=== PATIENT | male | born 1945 | race American Indian/Alaskan Native ===

== ENCOUNTER 2016-09-07 16:53 | Inpatient (IN) | payer MEDICARE ==
[2016-09-07] MEDS ORDERED: NACL 0.9% 1000 ML 2,000 ML ONE (17:19)
[2016-09-07] MEDS ORDERED: CARDIZEM IV ONE (17:30)
[2016-09-07] MEDS ORDERED: NACL 0.9% 1000 ML 1,000 ML IV ONE (17:30)
[2016-09-07] MEDS ORDERED: BABY ASPIRIN PO ONE (17:32)
--- NOTE | 2016-09-07 17:32 | Emergency Department Report ---
HPI - General Chief Complaint: Chest Pain Time Seen by Provider: 09/07/16 17:29 - HPI HPI: The patient is a 70-year-old male who presents for evaluation of generalized weakness, dyspnea, and lightheadedness. The patient reports 2 weeks of progressive generalized weakness, moderate in severity, dyspnea, severe, exacerbated with physical activity and exertion, improved with rest, and dizziness, exacerbated with position changes. He admits to some transient chest pain yesterday, but none today. The patient denies fever, headache, syncope, hemoptysis, unilateral leg swelling, recent immobilization, history of DVT or PE, recent cancer. ED Past Medical Hx - Past Medical History Previous Medical History?: Yes Hx Diabetes: Yes Additional medical history: high cholestrol - Surgical History Past Surgical History?: No - Social History Smoking Status: Never Smoker Substance Use Type: None - Medications Home Medications: Home Medications Medication Instructions Recorded Confirmed Last Taken Type Metformin HCl [Glucophage] 1,000 mg PO BID 09/07/16 09/07/16 Unknown History Simvastatin [Zocor TAB] 40 mg PO QHS 09/07/16 09/07/16 Unknown History Tamsulosin [Flomax] 0.4 mg PO QDAY 09/07/16 09/07/16 Unknown History glipiZIDE [Glucotrol] 5 mg PO ADAM 09/07/16 09/07/16 Unknown History ED Review of Systems ROS: Stated complaint: SHOULDER PAIN/EMELIA Other details as noted in HPI Constitutional: denies: fever; reports lightheadedness and dizziness ENT: denies: throat or neck pain Respiratory: reports cough, shortness of breath Cardiovascular: reports chest pain Endocrine: denies unexplained weight loss or gain Gastrointestinal: denies: abdominal pain, nausea Genitourinary: denies: dysuria Musculoskeletal: denies: leg swelling Skin: denies: rash Neurological: denies: headache Hematological/Lymphatic: denies: easy bleeding or easy bruising Psych: denies sadness or hopelessness Physical Exam - Physical Exam Vital Signs: Vital Signs 09/07/16 17:16 Temperature 98.7 F Pulse Rate 80 Respiratory 24 Rate Blood Pressure 121/85 O2 Sat by Pulse 96 Oximetry Physical Exam: General: well-nourished, well-developed, no acute distress Head: Normocephalic, atraumatic Eyes: normal sclera ENT: Mucous membranes are pale and dry Neck: No neck stiffness, no cervical adenopathy Respiratory: patient tachypenic, Breath sounds equal bilaterally, no wheezing, rales, or rhonchi Cardio: tachycardic, S1 and S2 present, no murmurs, rubs, gallops, capillary refill is delayed Abdomen: Normoactive bowel sounds, soft abdomen, no rigidity, no guarding or rebound tenderness Musc: No pitting edema Skin: patient diaphoretic Neuro: no facial drooping, normal speech Psych: Normal affect ED Course Vital Signs 09/07/16 17:16 Temperature 98.7 F Pulse Rate 80 Respiratory 24 Rate Blood Pressure 121/85 O2 Sat by Pulse 96 Oximetry ED Medical Decision Making - Lab Data Result diagrams: 09/07/16 18:06 09/07/16 17:50 - Medical Decision Making The patient was seen and examined by myself. The patient is placed on a charging car operator and continuous pulse ox. On initial evaluation, the patient was found to be in no distress. EKG exhibits regularly irregular narrow QRS complex tachycardia, consistent with atrial fibrillation with RVR. EKG was negative for findings suggestive of acute cardiac infarct. The patient is given 2 doses of adenosine without resolution of arrhythmia. The patient is given a Cardizem bolus and started on a Cardizem infusion. Multiple bedside assessments are performed to evaluate patient responsiveness to titration of Cardizem infusion. Labs and imaging are obtained. Chest x-ray is negative for pneumothorax, focal consolidation, pulmonary vascular congestion, pleural effusion, or other obvious acute cardiopulmonary disease process. Lab results revealed leukocytosis, WBC 13, elevated lactic acid of 2.3, and elevated BNP of 540, otherwise labs were unrevealing including negative troponin, electrolytes, renal function. As the patient has diabetes, the patient has a chads score of 2 and will be anticoagulated. A heparin bolus and infusion is ordered for the patient. On reassessment the patient is found to have decrease in heart rate to 100. The on-call hospitalist service was contacted. They agreed to admit the patient for further treatment and close monitoring. The ED admit order was placed. The patient was admitted in guarded condition. Critical Care Time: Yes (35) Critical care time in (mins) excluding proc time.: 35 Critical care attestation.: Due to the critical nature of this patients presentation, which necessitated multiple bedside assessments, manipulation and supportive measures to prevent further life threatening deterioration, I would like to bill for a total of 35 minutes of critical care time. This was exclusive of any separately billable procedures. Critical Care Time: 35 ED Disposition Clinical Impression: Atrial flutter with rapid ventricular response, Dizziness, Acute upper respiratory infection Disposition: OP ADMITTED IP TO THIS HOSP Is pt being admited?: Yes Does the pt Need Aspirin: Yes Condition: Critical Time of Disposition: 17:32
[2016-09-07] MEDS: CARDIZEM/D5W 100MG/100ML 100 MG/100 ML BAG IV SCH (18:00)
--- NOTE | 2016-09-07 18:04 | Emergency Department Report ---
HPI - General Chief Complaint: Chest Pain Time Seen by Provider: 09/07/16 17:29 ED Past Medical Hx - Past Medical History Previous Medical History?: Yes Hx Diabetes: Yes Additional medical history: high cholestrol - Surgical History Past Surgical History?: No - Social History Smoking Status: Never Smoker Substance Use Type: None - Medications Home Medications: Home Medications Medication Instructions Recorded Confirmed Last Taken Type Metformin HCl [Glucophage] 1,000 mg PO BID 09/07/16 09/07/16 Unknown History Simvastatin [Zocor TAB] 40 mg PO QHS 09/07/16 09/07/16 Unknown History Tamsulosin [Flomax] 0.4 mg PO QDAY 09/07/16 09/07/16 Unknown History glipiZIDE [Glucotrol] 5 mg PO ADAM 09/07/16 09/07/16 Unknown History ED Review of Systems ROS: Stated complaint: SHOULDER PAIN/EMELIA Other details as noted in HPI Physical Exam - Physical Exam Vital Signs: Vital Signs 09/07/16 09/07/16 17:16 17:32 Temperature 98.7 F Pulse Rate 80 157 H Respiratory 24 18 Rate Blood Pressure 121/85 Blood Pressure 142/100 [left] O2 Sat by Pulse 96 98 Oximetry ED Course Vital Signs 09/07/16 09/07/16 17:16 17:32 Temperature 98.7 F Pulse Rate 80 157 H Respiratory 24 18 Rate Blood Pressure 121/85 Blood Pressure 142/100 [left] O2 Sat by Pulse 96 98 Oximetry Critical Care Time: Yes Critical care time in (mins) excluding proc time.: 35 (35) Critical care attestation.: Due to the critical nature of this patients presentation, which necessitated multiple bedside assessments, manipulation and supportive measures to prevent further life threatening deterioration, I would like to bill for a total of 35 minutes of critical care time. This was exclusive of any separately billable procedures. Critical Care Time: 35 ED Disposition Clinical Impression: Atrial flutter with rapid ventricular response Disposition: OP ADMITTED IP TO THIS HOSP Is pt being admited?: Yes Does the pt Need Aspirin: Yes Condition: Critical Time of Disposition: 17:01
--- NOTE | 2016-09-07 18:16 | Admit Criteria Form ---
Admission Criteria Documentation: CARDIOLOGY GRG Clinical Indications for Admission to Inpatient Care ( Place 'X' for any and all applicable criteria): Hospital admission is needed for appropriate care of the patient because of ANY ONE of the following (1): [ ] I. Hemodynamic instability as indicated by ALL of the following (1)(2)(3) (4)(5) [ ]a) Vital signs or other findings not as expected for chronic patient condition or baseline [ ]b) Instability indicated by ANY ONE of the following: [ ]i) Hypotension [ ]ii) Symptomatic Tachycardia unresponsive to treatment ( e.g., analgesia, fluids, sedation as indicated) [ ]iii) Inadequate perfusion indicated by ANY ONE of the following: [ ] 1) Lactic acidosis (> 2 mmol/L) [ ] 2) New abnormal capillary refill (> 3 seconds) [ ] 3) Reduced urine output [ ] 4) New altered mental status [ ]iv) Orthostatic vital sign changes unresponsive to treatment (e.g., fluids) [ ]v) IV inotropic or vasopressor medication required to maintain adequate blood pressure or perfusion [ ] II. Severe heart failure as indicated by ANY ONE of the following(17)(18) [ ]a) Respiratory distress [ ]b) Hypotension [ ]c) Anasarca (refractory to outpatient therapy) [ ]d) Cardiac arrhythmias of immediate concern [ ]e) Myocardial ischemia [ ] III. Cardiac arrhythmias or findings of immediate concern indicated by ANY ONE of the following (19)(20): [ ] a) Heart rhythms that are inherently dangerous or unstable indicated by ANY ONE of the following (21)(22)(23): [ ] i) Resuscitated ventricular fibrillation or cardiac arrest [ ] ii) Ventricular escape rhythm [ ] iii) Sustained ventricular tachycardia (30 seconds or more of ventricular rhythm at greater than 100 beats per minute) [ ] iv) Nonsustained ventricular tachycardia and ANY ONE of the following: [ ] 1) Suspected cardiac ischemia as cause or consequence of ventricular tachycardia [ ] 2) In setting of acute myocarditis [ ] b) Unstable cardiac conduction defects indicated by ANY ONE of the following(23)(24)(25) [ ] i) Type II second-degree atrioventricular block [ ]ii) Third-degree atrioventricular block [ ]iii) New-onset left bundle branch block with suspected myocardial ischemia [ ]c) Any heart rhythm and ANY ONE of the following (21)(22)(26)(27) (28) [ ] i) Continuous long-term ECG monitoring needed (e.g., initiation of drug requiring monitoring for more than 24 hours) [ ] ii) Patient has automatic implanted cardioverter defibrillator that is repeatedly firing, malfunctioning, or in need of immediate adjustment of settings beyond the scope of ambulatory or observation care [ ]d) Heart rhythms of concern due to ANY ONE of the following: [ ] i) Hypotension [ ] ii) Respiratory distress [ ] iii) Association with other significant symptoms (e.g., bradycardia with syncope or ongoing dizziness, supraventricular tachycardia with chest pain (14)(15)(17) [ ] IV. Monitoring for cardiac contusion beyond the scope of observation care needed [A](30)(31)(32) [ ] V. Surgical or device complication (e.g., valve replacement complication , pacemaker dysfunction) (35)(41)(44)(45)(46) [ ] . Inpatient palliative care needed. [B](49) Also use Inpatient Palliative Care Criteria [ ] VII. Nonbacterial thrombotic (marantic) endocarditis (36)(43)(47)(48) [X ] VIII. Cardiology condition, symptom, or finding for which emergency and observation care has failed or are not considered appropriate. [ ] IX. Acute valvular disease requiring inpatient as indicated by ANY ONE of the following (41) [ ]a) Acute valvular regurgitation (42) [ ]b) Noninfectious valvulitis (43) [ ]c) Obstructive valve thrombosis [ ]d) Paravalvular leak [ ]e) Other significant valvular disorder remaining after emergency or observation level of care (as appropriate) [ ]X. Pericardial disease requiring inpatient treatment as indicated by ANY ONE of the following (33)(34)(35)(36)(37) [ ]a) Suspected tamponade (38)(39)(40) [ ]b) Hemopericardium [ ]c) Other significant pericardial disorder remaining after emergency or observation level of care (as appropriate) [ ] XI. Cardiac ischemia beyond scope of emergency and observation care. [ ] XII. Hypertension requiring inpatient treatment as indicated by ANY ONE of the following (6)(7)(8) [ ]a) SBP greater than 220 mm Hg or DBP greater than 120 mmHg despite treatment [ ]b) SBP greater than 140 mm Hg or DBP greater than 100 mm Hg with evidence of acute end organ damage as indicated by ANY ONE of the following [ ] i) Altered mental status [ ] ii) Acute renal failure as indicated by new onset of ANY ONE of the following (9)(10)(11)(12)(13) [ ]1) 3-fold rise in serum creatinine from baseline [ ]2) Serum creatinine greater than 4 mg/dL ( 354 micromoles/L) with acute rise greater than 0.5 mg/dL (44.2 micromoles/L) [ ]3) Reduction of more than 75% in estimated glomerular filtration rate from baseline [ ]4) Estimated glomerular filtration rate less than 35 mL/min/1.73m2 (0.59 mL/sec/1.73m2) in child up to 18 years of age [ ]5) Cessation of urine output indicated by ALL of the following [ ]A. Adequate volume status [ ]B. Inadequate urine output as indicated by ANY ONE of the following [ ]a. Urine output less than 0.3 mL/kg/hr for 24 hours [ ]b. Anuria (urine output less than 0.1 mL/kg/hr) for 12 hours [ ] iii) Aortic dissection [ ] iv) Myocardial Ischemia [ ] v) Left ventricular heart failure [ ]vi) Retinal Hemorrhage [ ]vii) Other significant finding [ ]c) Hypertension in child requiring inpatient treatment as indicated by ALL of the following(14)(15)(16) [ ] i) Outpatient treatment not effective, not available, or not appropriate [ ]ii) SBP or DBP greater than 95th percentile for age [ ]iii) Evidence of acute end organ damage as indicated by ANY ONE of the following [ ]1) Altered mental status [ ]2) Acute renal failure as indicated by new onset of ANY ONE of the following(9)(10)(11)(12)(13) [ ]A. 3-fold rise in serum creatinine from baseline [ ]B. Serum creatinine greater than 4 mg/dL (354 micromoles/L) with acute rise greater than 0.5 mg/dL (44.2 micromoles/L) [ ]C. Reduction of more than 75% in estimated glomerular filtration rate from baseline [ ]D. Estimated glomerular filtration rate less than 35 mL/min/1.73m2 (0.59 mL/sec/1.73m2) in child up to 18 years of age [ ]E. Cessation of urine output indicated by ALL of the following [ ]a. Adequate volume status [ ]b. Inadequate urine output as indicated by ANY ONE of the following [ ]i) Urine output less than 0.3 mL/kg/hr for 24 hours [ ]ii) Anuria ( urine output less than 0.1 mL/kg/hr) for 12 hours [ ]3) Severe headache [ ]4) Visual disturbance [ ]5) Retinal hemorrhage [ ]6) Other significant finding [ ]XIII. Complications of transplanted heart indicated by ANY ONE of the following(61): [ ]a) Acute graft rejection requiring inpatient management (eg, intravenous immunosuppression)(62)(63) [ ]b) Acute graft heart failure indicated by ANY ONE of the following(64): [ ]i) Hemodynamic instability [ ]ii) Cardiac arrhythmias of immediate concern [ ]iii) Pulmonary edema that is very severe (eg, mechanical ventilation needed, imminent or likely, need for 100% oxygen to keep oxygen saturation above 90%) [ ]iv) Pulmonary edema that is persistent as indicated by ALL of the following: [ ]1) New need for oxygen therapy to keep oxygen saturation above 90% (or increased FiO2 need from baseline) [ ]2) Has not improved sufficiently with emergency department or observation care IV diuretics or other heart failure treatments[E] [ ]v) Altered mental status that is severe or persistent [ ]vi) Increased creatinine (new on laboratory test) with reduction of more than 50% in estimated glomerular filtration rate from baseline [ ]vii) Progressively (ongoing) rising creatinine (known from past laboratory test) with reduction of more than 25% in estimated glomerular filtration rate from baseline [ ]viii) Acute renal failure [ ]ix) Acute peripheral ischemia (eg, examination shows pulseless, cool, mottled, or cyanotic extremity) [ ]x) Pulmonary artery catheter monitoring needed [ ]xi) Other sign or symptom of heart failure requiring inpatient treatment (ie, too severe or not responsive to outpatient and observation care treatment) [ ]c) Infection requiring inpatient management (eg, Hemodynamic instability, need for intravenous antimicrobial treatment)(66)(67)(68)(69)(70) [ ]d) Cardiac allograft vasculopathy requiring inpatient management ( eg evidence of cardiac ischemia)(71) [ ]e) Other complication of transplanted heart (eg, stroke, severe pulmonary hypertension, severe valvular dysfunction) requiring inpatient management(72) The original [facility] [employer] content created by [facility] has been revised. The portions of the content which have been revised are identified through the use of italic text or in bold, and [facility] has neither reviewed nor approved the modified material. All other unmodified content is copyright [facility] [employer]. Please see references footnoted in the original [facility] [employer] edition 2016 Admission Criteria Met: Yes
[2016-09-07 18:31] LABS: INR 1.2 (0.87-1.13)
[2016-09-07 18:32] LABS: Partial Thromboplastin Time 32.9 Sec. (24.2-36.6)
[2016-09-07 18:35] LABS: Basophils % (Auto) 0.8 % (0.0-1.8); Eosinophils % (Auto) 0.5 % (0.0-4.3); Mean Corpuscular HGB Conc 30 % (32-34); Mean Corpuscular Volume 71 fl (84-94); Platelet Count 329 K/mm3 (140-440); Red Blood Count 4.94 M/mm3 (3.65-5.03); Red Cell Distribution Width 16.4 % (13.2-15.2)
[2016-09-07 18:38] LABS: Hemoglobin 10.6 gm/dl (11.8-15.2); Mean Corpuscular Hemoglobin 22 pg (28-32)
[2016-09-07 18:40] LABS: Alanine Aminotransferase 23 units/L (7-56); Albumin 3.3 g/dL (3.9-5); Albumin/Globulin Ratio 0.7 %; Alkaline Phosphatase 94 units/L (35-129); Anion Gap 23 mmol/L; BUN/Creatinine Ratio 7.77; Bilirubin,Total 0.5 mg/dL (0.1-1.2); Blood Urea Nitrogen 7 mg/dL (9-20); Calcium 9.8 mg/dL (8.4-10.2); Carbon Dioxide 25 mmol/L (22-30); Chloride 97.3 mmol/L (98-107); Glucose 114 mg/dL (75-100); Potassium 3.9 mmol/L (3.6-5.0); Sodium 141 mmol/L (137-145); Total Protein 8.1 g/dL (6.3-8.2)
[2016-09-07] MEDS ORDERED: TYLENOL PO PRN (20:46)
[2016-09-07] MEDS ORDERED: ZOFRAN IV PRN (20:46)
[2016-09-07] MEDS ORDERED: DULCOLAX PR PRN (20:46)
[2016-09-07] MEDS ORDERED: DILAUDID IV PRN (20:46)
[2016-09-07] MEDS ORDERED: MILK OF MAGNESIA PO PRN (20:46)
[2016-09-07] MEDS ORDERED: NOVOLOG SUB-Q ONE (20:55)
[2016-09-07] MEDS ORDERED: D5/0.45NS 1,000 ML IV SCH (21:00)
--- NOTE | 2016-09-07 21:03 | History and Physical Report ---
History of Present Illness Date of examination: 09/07/16 Date of admission: 09/07/16 Chief complaint: Chest pain History of present illness: The patient is a 70-year-old male who presents for evaluation of generalized weakness, dyspnea, and lightheadedness. The patient reports 2 weeks of progressive generalized weakness, moderate in severity, dyspnea, severe, exacerbated with physical activity and exertion, improved with rest, and dizziness, exacerbated with position changes. He admits to some transient chest pain yesterday, but none today. The patient denies fever, headache, syncope, hemoptysis, unilateral leg swelling, recent immobilization, history of DVT or PE, recent cancer. Past History Past Medical History: diabetes, hypertension, hyperlipidemia, other (BPH) Past Surgical History: No surgical history Social history: lives with family. denies: smoking, alcohol abuse Family history: hypertension Medications and Allergies Allergies Allergy/AdvReac Type Severity Reaction Status Date / Time iodine Allergy Swelling Verified 09/09/16 12:04 Home Medications Medication Instructions Recorded Confirmed Last Taken Type Metformin HCl [Glucophage] 1,000 mg PO BID 09/07/16 09/07/16 Unknown History Simvastatin [Zocor TAB] 40 mg PO QHS 09/07/16 09/07/16 Unknown History Tamsulosin [Flomax] 0.4 mg PO QDAY 09/07/16 09/07/16 Unknown History glipiZIDE [Glucotrol] 5 mg PO ADAM 09/07/16 09/07/16 Unknown History Active Meds: Active Medications Acetaminophen (Tylenol) 650 mg PO Q4H PRN PRN Reason: Pain MILD(1-3)/Fever >100.5/CHO Bisacodyl (Dulcolax) 10 mg [place] QDAY PRN PRN Reason: Constipation unrelieved by MOM Glipizide (Glucotrol) 5 mg PO ADAM BETY Hydromorphone HCl (Dilaudid) 0.5 mg IV Q3H PRN PRN Reason: Pain , Severe (7-10) Diltiazem HCl (Cardizem/D5w 100mg/100ml) 100 mg in 100 mls @ 5 mls/hr IV TITR BETY; 5 MG/HR PRN Reason: Protocol Last Titration: 09/07/16 19:33 Dose: 10 mg/hr, 10 mls/hr Dextrose/Sodium Chloride (D5/0.45ns) 1,000 mls @ 75 mls/hr IV DIRECT BETY Insulin Aspart (Novolog) 0 units SUB-Q ONCE ONE PRN Reason: Protocol Stop: 09/07/16 20:56 Magnesium Hydroxide (Milk Of Magnesia) 30 ml PO Q4H PRN PRN Reason: Constipation Miscellaneous Medication (Metformin Hcl [Glucophage]) 1,000 mg PO BID [facility] Ondansetron HCl (Zofran) 4 mg IV Q3H PRN PRN Reason: N/V unrelieved by Reglan Oxycodone/Acetaminophen (Percocet 5/325) 1 tab PO Q6H PRN PRN Reason: Pain, Moderate (4-6) Simvastatin (Zocor) 40 mg PO QHS BETY Tamsulosin HCl (Flomax) 0.4 mg PO QDAY [facility] Review of Systems All systems: negative Constitutional: no weight loss, no weight gain Ears, nose, mouth and throat: no mouth pain, no dysphagia, no hoarseness, no sore throat Cardiovascular: chest pain, palpitations, no orthopnea, no lightheadedness, no shortness of breath Respiratory: no cough with sputum, no shortness of breath, no dyspnea on exertion, no congestion, no wheezing, no pain on inspiration Gastrointestinal: no nausea, no vomiting, no diarrhea, no constipation, no change in bowel habits Genitourinary Male: no dysuria, no hematuria, no flank pain, no discharge, no urinary frequency, no urinary hesitancy Musculoskeletal: no neck stiffness, no neck pain, no shooting arm pain Integumentary: no rash, no pruritis, no redness Neurological: no seizures, no syncope Psychiatric: no anxiety, no depression Endocrine: no cold intolerance, no heat intolerance, no polyphagia, no excessive thirst, no polydipsia, no polyuria Hematologic/Lymphatic: no easy bruising, no easy bleeding Allergic/Immunologic: no urticaria, no allergic rhinitis, no wheezing Exam - Physical Exam Narrative exam: WD WN male in slight distress - Constitutional Vitals: Temp Pulse Resp BP Pulse Ox 98.7 F 102 H 20 132/86 100 09/07/16 17:16 09/07/16 20:33 09/07/16 20:33 09/07/16 20:33 09/07/16 20:33 General appearance: Present: no acute distress, well-nourished - EENT Eyes: Present: PERRL ENT: hearing intact, clear oral mucosa - Neck Neck: Present: supple, normal ROM - Respiratory Respiratory effort: normal Respiratory: bilateral: CTA - Cardiovascular Rhythm: irregularly irregular Heart Sounds: Present: S1 & S2. Absent: rub, click - Extremities Extremities: pulses symmetrical, No edema Peripheral Pulses: within normal limits - Abdominal General gastrointestinal: Present: soft, non-tender, non-distended, normal bowel sounds Male genitourinary: Present: normal - Integumentary Integumentary: Present: clear, warm, dry - Musculoskeletal Musculoskeletal: gait normal, strength equal bilaterally - Psychiatric Psychiatric: appropriate mood/affect, intact judgment & insight - Neurologic Neurologic: CNII-XII intact, moves all extremities - Allied Health Allied health notes reviewed: nursing, case management Results - Labs CBC & Chem 7: 09/08/16 04:51 09/09/16 03:59 Labs: Laboratory Last Values WBC 13.0 K/mm3 (4.5-11.0) H 09/07/16 18:06 RBC 4.94 M/mm3 (3.65-5.03) 09/07/16 18:06 Hgb 10.6 gm/dl (11.8-15.2) L 09/07/16 18:06 Hct 35.0 % (35.5-45.6) L 09/07/16 18:06 MCV 71 fl (84-94) L 09/07/16 18:06 MCH 22 pg (28-32) L 09/07/16 18:06 MCHC 30 % (32-34) L 09/07/16 18:06 RDW 16.4 % (13.2-15.2) H 09/07/16 18:06 Plt Count 329 K/mm3 (140-440) 09/07/16 18:06 Lymph % (Auto) 11.9 % (13.4-35.0) L 09/07/16 18:06 [place] % (Auto) 14.0 % (0.0-7.3) H 09/07/16 18:06 Eos % (Auto) 0.5 % (0.0-4.3) 09/07/16 18:06 Baso % (Auto) 0.8 % (0.0-1.8) 09/07/16 18:06 Lymph # 1.5 K/mm3 (1.2-5.4) 09/07/16 18:06 [place] # 1.8 K/mm3 (0.0-0.8) H 09/07/16 18:06 Eos # 0.1 K/mm3 (0.0-0.4) 09/07/16 18:06 Baso # 0.1 K/mm3 (0.0-0.1) 09/07/16 18:06 Seg Neutrophils % 72.8 % (40.0-70.0) H 09/07/16 18:06 Seg Neutrophils # 9.5 K/mm3 (1.8-7.7) H 09/07/16 18:06 PT 15.1 Sec. (12.2-14.9) H 09/07/16 17:50 INR 1.20 (0.87-1.13) H 09/07/16 17:50 APTT 32.9 Sec. (24.2-36.6) 09/07/16 17:50 VBG pH 7.369 (7.320-7.420) 09/07/16 17:50 Sodium 141 mmol/L (137-145) 09/07/16 17:50 Potassium 3.9 mmol/L (3.6-5.0) 09/07/16 17:50 Chloride 97.3 mmol/L (98-107) L 09/07/16 17:50 Carbon Dioxide 25 mmol/L (22-30) 09/07/16 17:50 Anion Gap 23 mmol/L 09/07/16 17:50 BUN 7 mg/dL (9-20) L 09/07/16 17:50 Creatinine 0.9 mg/dL (0.8-1.5) 09/07/16 17:50 Estimated GFR > 60 ml/min 09/07/16 17:50 BUN/Creatinine Ratio 7.77 % 09/07/16 17:50 Glucose 114 mg/dL (75-100) H 09/07/16 17:50 POC Glucose 157 (70-105) H 09/07/16 16:55 Lactic Acid 2.3 mmol/L (0.7-2.0) H* 09/07/16 18:06 Calcium 9.8 mg/dL (8.4-10.2) 09/07/16 17:50 Total Bilirubin 0.5 mg/dL (0.1-1.2) 09/07/16 17:50 AST 18 units/L (5-40) 09/07/16 17:50 ALT 23 units/L (7-56) 09/07/16 17:50 Alkaline Phosphatase 94 units/L (35-129) 09/07/16 17:50 Total Creatine Kinase 34 units/L (55-170) L 09/07/16 18:06 Troponin T < 0.010 ng/mL (0.00-0.029) 09/07/16 17:50 NT-Pro-B Natriuret Pep 547.2 pg/mL (0-900) 09/07/16 17:50 Total Protein 8.1 g/dL (6.3-8.2) 09/07/16 17:50 Albumin 3.3 g/dL (3.9-5) L 09/07/16 17:50 Albumin/Globulin Ratio 0.7 % 09/07/16 17:50 TSH 0.982 mlU/mL (0.270-4.200) 09/07/16 18:06 Free T4 1.12 ng/dL (0.76-1.46) 09/07/16 17:50 Ketones mmol/L (-0.28) 09/07/16 18:06 - Imaging and Cardiology EKG: report reviewed (Afib with rvr) Assessment and Plan Advance Directives: Yes (Full code) VTE prophylaxis?: Chemical Plan of care discussed with patient/family: Yes - Patient Problems (1) Atrial flutter with rapid ventricular response Current Visit: Yes Status: Acute Plan to address problem: On Cardizem (2) HTN (hypertension) Current Visit: Yes Status: Chronic Qualifiers: Hypertension type: essential hypertension Qualified Code(s): I10 - Essential (primary) hypertension Plan to address problem: Cont Anyihypertensives (3) BPH (benign prostatic hyperplasia) Current Visit: Yes Status: Chronic Qualifiers: Prostatic enlargement morphology: non-nodular Lower urinary tract symptom presence: symptoms present Qualified Code(s): N40.1 - Benign prostatic hyperplasia with lower urinary tract symptoms Plan to address problem: On Tamsulosin 0.4 mg po qd (4) T2DM (type 2 diabetes mellitus) Current Visit: Yes Status: Chronic Qualifiers: Diabetes mellitus complication status: without complication Diabetes mellitus complication detail: D Diabetic retinopathy severity: D Proliferative retinopathy type: P Diabetes mellitus macular edema: D Diabetes mellitus ferry terminal agent insulin use: D Laterality: L Chronic kidney disease stage: C Plan to address problem: Coverage for now (5) HLD (hyperlipidemia) Current Visit: Yes Status: Chronic Qualifiers: Hyperlipidemia type: mixed hyperlipidemia Qualified Code(s): E78.2 - Mixed hyperlipidemia Plan to address problem: Cont statins (6) DVT prophylaxis Current Visit: Yes Status: Acute Plan to address problem: on lovenox 40 mg sq
[2016-09-07] MEDS ORDERED: NON-FORMULARY (Metformin Hcl [Glucophage] 1,000 MG) PO SCH (22:00)
[2016-09-07] MEDS ORDERED: ASPIRIN ONE (22:29)
[2016-09-07] MEDS: GLUCOPHAGE PO SCH (22:32)
[2016-09-07] MEDS: ZOCOR PO SCH (22:35)
[2016-09-07] MEDS ORDERED: HEPARIN 10,000 UNITS/10 ML IV ONE (23:07)
[2016-09-08] MEDS ORDERED: HEPARIN/ 0.45% NACL-25,000 UNIT/500 ML 25,000 UNIT/500 ML BAG ONE (02:12)
[2016-09-08] MEDS: CARDIZEM/D5W 100MG/100ML 100 MG/100 ML BAG IV SCH (02:25)
[2016-09-08 05:17] LABS: Basophils % (Auto) 0.7 % (0.0-1.8); Hematocrit 33.2 % (35.5-45.6); Hemoglobin 10.3 gm/dl (11.8-15.2); Mean Corpuscular HGB Conc 31 % (32-34); Mean Corpuscular Hemoglobin 22 pg (28-32); Mean Corpuscular Volume 70 fl (84-94); Platelet Count 291 K/mm3 (140-440); Red Blood Count 4.73 M/mm3 (3.65-5.03); Red Cell Distribution Width 15.8 % (13.2-15.2); White Blood Count 10.1 K/mm3 (4.5-11.0)
[2016-09-08 05:42] LABS: Alanine Aminotransferase 20 units/L (7-56); Albumin 2.9 g/dL (3.9-5); Albumin/Globulin Ratio 0.7 %; Alkaline Phosphatase 82 units/L (35-129); Anion Gap 16 mmol/L; BUN/Creatinine Ratio 7.77; Bilirubin,Total 0.4 mg/dL (0.1-1.2); Blood Urea Nitrogen 7 mg/dL (9-20); Calcium 9.1 mg/dL (8.4-10.2); Carbon Dioxide 29 mmol/L (22-30); Chloride 99.4 mmol/L (98-107); Glucose 133 mg/dL (75-100); Potassium 3.8 mmol/L (3.6-5.0); Sodium 141 mmol/L (137-145)
--- NOTE | 2016-09-08 07:27 | XRay Report ---
AP CHEST: HISTORY: chest pain No comparison. The left hemidiaphragm appears to be elevated with large areas of compressive atelectasis in the left lower lobe. There also appears to be partial atelectasis in the left upper lobe. It is unclear if this is an acute or chronic process. The right lung is clear. Borderline to mild cardiomegaly is suspected. IMPRESSION: Abnormal left lung. The left hemidiaphragm appears elevated with large areas of atelectasis throughout the left lung. There no studies for comparison at this facility. Consider further evaluation with CT chest with contrast.
--- NOTE | 2016-09-08 08:04 | Progress Note ---
Assessment and Plan Assessment and plan: --Atrial flutter with rapid ventricular rate. On Cardizem drip Rate is better controlled, we'll add oral Cardizem and DC Cardizem drip Anticoagulation with heparin drip Cardiology following, possible ablation if no response to medical management inpatient versus outpatient --Type 2 diabetes mellitus, on oral hypoglycemics Moderate control, Accu-Chek sliding scale coverage and ADA diet, and oral meds Hemoglobin A1c 6.6 --elevated d-dimer's in the setting of atypical chest pain CT angiogram of the chest to rule out PE, oxygen titrated to O2 sats to 90% and above --Elevated lactic acid, rule out sepsis No evidence of sepsis at this point, patient is afebrile, normal WBC Closely monitor --Left lung atelectasis, questionable pneumonia Add empiric antibiotics Levaquin Follow CT chest --Dyslipidemia; Continue current lipid-lowering medications --History of BPH, stable on Flomax --DVT prophylaxis, patient is already on heparin drip --CODE STATUS; full code Closely monitor the patient and adjust the management as needed Consult and recommendations noted and appreciated If patient's heart rate is less than 100 on oral Cardizem and stable Patient can be transferred out of ICU Critical care time 31 minutes History Interval history: Patient seen and evaluated in his room medical records reviewed No new events reported by the nursing staff Patient was admitted with A. fib with rapid ventricular rate on Cardizem drip Patient's heart rate ranged between 70-110 Denies any chest pain or shortness of breath, no nausea vomiting or abdominal pain Alert awake oriented 3 not in acute distress Hospitalist Physical - Constitutional Vitals: Temp Pulse Resp BP Pulse Ox 98.8 F 104 H 17 138/75 99 09/08/16 04:00 09/07/16 22:30 09/07/16 22:30 09/07/16 22:30 09/07/16 22:30 General appearance: Present: no acute distress, well-nourished - EENT Eyes: Present: PERRL, EOM intact - Neck Neck: Present: supple, normal ROM - Respiratory Respiratory effort: normal Respiratory: negative: rales, rhonchi, wheezing - Cardiovascular Rhythm: irregularly irregular Heart Sounds: Present: S1 & S2 - Extremities Extremities: no ischemia, pulses intact, pulses symmetrical - Abdominal General gastrointestinal: soft, non-tender, non-distended, normal bowel sounds - Integumentary Integumentary: Present: clear, warm - Psychiatric Psychiatric: appropriate mood/affect, cooperative - Neurologic Neurologic: CNII-XII intact, moves all extremities Results - Labs CBC & Chem 7: 09/08/16 04:51 09/08/16 04:51 Labs: Laboratory Last Values WBC 10.1 K/mm3 (4.5-11.0) 09/08/16 04:51 RBC 4.73 M/mm3 (3.65-5.03) 09/08/16 04:51 Hgb 10.3 gm/dl (11.8-15.2) L 09/08/16 04:51 Hct 33.2 % (35.5-45.6) L 09/08/16 04:51 MCV 70 fl (84-94) L 09/08/16 04:51 MCH 22 pg (28-32) L 09/08/16 04:51 MCHC 31 % (32-34) L 09/08/16 04:51 RDW 15.8 % (13.2-15.2) H 09/08/16 04:51 Plt Count 291 K/mm3 (140-440) 09/08/16 04:51 Lymph % (Auto) 18.1 % (13.4-35.0) 09/08/16 04:51 [place] % (Auto) 11.2 % (0.0-7.3) H 09/08/16 04:51 Eos % (Auto) 1.0 % (0.0-4.3) 09/08/16 04:51 Baso % (Auto) 0.7 % (0.0-1.8) 09/08/16 04:51 Lymph # 1.8 K/mm3 (1.2-5.4) 09/08/16 04:51 [place] # 1.1 K/mm3 (0.0-0.8) H 09/08/16 04:51 Eos # 0.1 K/mm3 (0.0-0.4) 09/08/16 04:51 Baso # 0.1 K/mm3 (0.0-0.1) 09/08/16 04:51 Seg Neutrophils % 69.0 % (40.0-70.0) 09/08/16 04:51 Seg Neutrophils # 6.9 K/mm3 (1.8-7.7) 09/08/16 04:51 PT 15.1 Sec. (12.2-14.9) H 09/07/16 17:50 INR 1.20 (0.87-1.13) H 09/07/16 17:50 APTT 32.9 Sec. (24.2-36.6) 09/07/16 17:50 VBG pH 7.369 (7.320-7.420) 09/07/16 17:50 Sodium 141 mmol/L (137-145) 09/08/16 04:51 Potassium 3.8 mmol/L (3.6-5.0) 09/08/16 04:51 Chloride 99.4 mmol/L (98-107) 09/08/16 04:51 Carbon Dioxide 29 mmol/L (22-30) 09/08/16 04:51 Anion Gap 16 mmol/L 09/08/16 04:51 BUN 7 mg/dL (9-20) L 09/08/16 04:51 Creatinine 0.9 mg/dL (0.8-1.5) 09/08/16 04:51 Estimated GFR > 60 ml/min 09/08/16 04:51 BUN/Creatinine Ratio 7.77 % 09/08/16 04:51 Glucose 133 mg/dL (75-100) H 09/08/16 04:51 POC Glucose 118 (70-105) H 09/08/16 07:42 Hemoglobin A1c 6.6 % (4-6) H 09/08/16 04:51 Lactic Acid 2.3 mmol/L (0.7-2.0) H* 09/07/16 18:06 Calcium 9.1 mg/dL (8.4-10.2) 09/08/16 04:51 Total Bilirubin 0.4 mg/dL (0.1-1.2) 09/08/16 04:51 AST 16 units/L (5-40) 09/08/16 04:51 ALT 20 units/L (7-56) 09/08/16 04:51 Alkaline Phosphatase 82 units/L (35-129) 09/08/16 04:51 Total Creatine Kinase 34 units/L (55-170) L 09/07/16 18:06 Troponin T < 0.010 ng/mL (0.00-0.029) 09/07/16 17:50 NT-Pro-B Natriuret Pep 547.2 pg/mL (0-900) 09/07/16 17:50 Total Protein 7.0 g/dL (6.3-8.2) 09/08/16 04:51 Albumin 2.9 g/dL (3.9-5) L 09/08/16 04:51 Albumin/Globulin Ratio 0.7 % 09/08/16 04:51 TSH 0.982 mlU/mL (0.270-4.200) 09/07/16 18:06 Free T4 1.12 ng/dL (0.76-1.46) 09/07/16 17:50 Ketones mmol/L (-0.28) 09/07/16 18:06
[2016-09-08] MEDS: GLUCOTROL PO SCH (09:05)
[2016-09-08] MEDS: GLUCOPHAGE PO SCH ×2 (09:05→18:29)
--- NOTE | 2016-09-08 10:26 | Consultation ---
History of Present Illness Consult date: 09/08/16 Requesting physician: SURINDER LAUREN Reason for consult: other (Atrial fib/flutter with RVR) History of present illness: PULMONARY/CCM CONSULT NOTE (Full dictation # [id number]) Please see dictated notes for full details Past History Past Medical History: diabetes, hypertension, hyperlipidemia, other (BPH) Medications and Allergies Allergies Allergy/AdvReac Type Severity Reaction Status Date / Time No Known Allergies Allergy Verified 09/07/16 17:22 Home Medications Medication Instructions Recorded Confirmed Last Taken Type Metformin HCl [Glucophage] 1,000 mg PO BID 09/07/16 09/07/16 Unknown History Simvastatin [Zocor TAB] 40 mg PO QHS 09/07/16 09/07/16 Unknown History Tamsulosin [Flomax] 0.4 mg PO QDAY 09/07/16 09/07/16 Unknown History glipiZIDE [Glucotrol] 5 mg PO ADAM 09/07/16 09/07/16 Unknown History Active Meds: Active Medications Acetaminophen (Tylenol) 650 mg PO Q4H PRN PRN Reason: Pain MILD(1-3)/Fever >100.5/CHO Bisacodyl (Dulcolax) 10 mg [place] QDAY PRN PRN Reason: Constipation unrelieved by MOM Diltiazem HCl (Cardizem) 30 mg PO Q6HR BETY Glipizide (Glucotrol) 5 mg PO QDDIAB BETY Last Admin: 09/08/16 09:05 Dose: 5 mg Hydromorphone HCl (Dilaudid) 0.5 mg IV Q3H PRN PRN Reason: Pain , Severe (7-10) Diltiazem HCl (Cardizem/D5w 100mg/100ml) 100 mg in 100 mls @ 5 mls/hr IV TITR BETY; 5 MG/HR PRN Reason: Protocol Last Admin: 09/08/16 02:25 Dose: 10 mg/hr, 10 mls/hr Dextrose/Sodium Chloride (D5/0.45ns) 1,000 mls @ 75 mls/hr IV DIRECT BETY Last Admin: 09/08/16 01:13 Dose: 75 mls/hr Heparin Sodium/Sodium Chloride (Heparin/ 0.45% Nacl-25,000 Unit/500 Ml) 25,000 unit in 500 mls @ 30 mls/hr IV TITR BETY; 1,500 UNITS/HR PRN Reason: Protocol Magnesium Hydroxide (Milk Of Magnesia) 30 ml PO Q4H PRN PRN Reason: Constipation Metformin HCl (Glucophage) 1,000 mg PO BIDDIAB [facility] Last Admin: 09/08/16 09:05 Dose: 1,000 mg Ondansetron HCl (Zofran) 4 mg IV Q3H PRN PRN Reason: N/V unrelieved by Reglan Oxycodone/Acetaminophen (Percocet 5/325) 1 tab PO Q6H PRN PRN Reason: Pain, Moderate (4-6) Simvastatin (Zocor) 40 mg PO QHS [facility] Last Admin: 09/07/16 22:35 Dose: 40 mg Tamsulosin HCl (Flomax) 0.4 mg PO QDAY [facility] Physical Examination Vital signs: Vital Signs Pulse Resp Pulse Ox 157 H 16 97 09/07/16 17:12 09/07/16 17:12 09/07/16 17:12 Results - Laboratory Findings CBC and BMP: 09/08/16 04:51 09/08/16 04:51 PT/INR, D-dimer PT 15.1 Sec. (12.2-14.9) H 09/07/16 17:50 INR 1.20 (0.87-1.13) H 09/07/16 17:50 Abnormal lab findings: Abnormal Labs 09/07/16 09/07/16 09/08/16 22:28 23:36 04:51 Hgb 10.3 L Hct 33.2 L MCV 70 L MCH 22 L MCHC 31 L RDW 15.8 H [place] % (Auto) 11.2 H [place] # 1.1 H BUN Glucose POC Glucose 121 H 119 H Hemoglobin A1c Albumin 09/08/16 09/08/16 09/08/16 04:51 04:51 07:42 Hgb Hct MCV MCH MCHC RDW [place] % (Auto) [place] # BUN 7 L Glucose 133 H POC Glucose 118 H Hemoglobin A1c 6.6 H Albumin 2.9 L
--- NOTE | 2016-09-08 10:51 | Consultation ---
History of Present Illness Consult date: 09/08/16 Consult reason: other (Atrial flutter ) History of present illness: This is a 70yr old man who presented to the ED with complaints of shortness of breath, worse on exertion and coughs. Patient reports symptoms has been ongoing for 2 weeks. Found to be in atrial flutter with a 2:1 AV conduction on initial workup in the ED. Patient denies history of arrhythmias. He denies prior cardiac history and evaluation. Chest x-ray reports no acute cardiopulmonary findings. Lab values shows a normal TSH of 0.98. Patient was placed on intravenous diltiazem and admitted to CCU. Cardiac consultation requested. Past History Past Medical History: diabetes, hypertension, hyperlipidemia, other (BPH) Medications and Allergies Allergies Allergy/AdvReac Type Severity Reaction Status Date / Time No Known Allergies Allergy Verified 09/07/16 17:22 Home Medications Medication Instructions Recorded Confirmed Last Taken Type Metformin HCl [Glucophage] 1,000 mg PO BID 09/07/16 09/07/16 Unknown History Simvastatin [Zocor TAB] 40 mg PO QHS 09/07/16 09/07/16 Unknown History Tamsulosin [Flomax] 0.4 mg PO QDAY 09/07/16 09/07/16 Unknown History glipiZIDE [Glucotrol] 5 mg PO ADAM 09/07/16 09/07/16 Unknown History Active Meds: Active Medications Acetaminophen (Tylenol) 650 mg PO Q4H PRN PRN Reason: Pain MILD(1-3)/Fever >100.5/CHO Bisacodyl (Dulcolax) 10 mg [place] QDAY PRN PRN Reason: Constipation unrelieved by MOM Diltiazem HCl (Cardizem) 30 mg PO Q6HR BETY Glipizide (Glucotrol) 5 mg PO QDDIAB BETY Last Admin: 09/08/16 09:05 Dose: 5 mg Hydromorphone HCl (Dilaudid) 0.5 mg IV Q3H PRN PRN Reason: Pain , Severe (7-10) Diltiazem HCl (Cardizem/D5w 100mg/100ml) 100 mg in 100 mls @ 5 mls/hr IV TITR BETY; 5 MG/HR PRN Reason: Protocol Last Admin: 09/08/16 02:25 Dose: 10 mg/hr, 10 mls/hr Dextrose/Sodium Chloride (D5/0.45ns) 1,000 mls @ 75 mls/hr IV DIRECT [facility] Last Admin: 09/08/16 01:13 Dose: 75 mls/hr Heparin Sodium/Sodium Chloride (Heparin/ 0.45% Nacl-25,000 Unit/500 Ml) 25,000 unit in 500 mls @ 30 mls/hr IV TITR BETY; 1,500 UNITS/HR PRN Reason: Protocol Magnesium Hydroxide (Milk Of Magnesia) 30 ml PO Q4H PRN PRN Reason: Constipation Metformin HCl (Glucophage) 1,000 mg PO BIDDIAB [facility] Last Admin: 09/08/16 09:05 Dose: 1,000 mg Ondansetron HCl (Zofran) 4 mg IV Q3H PRN PRN Reason: N/V unrelieved by Reglan Oxycodone/Acetaminophen (Percocet 5/325) 1 tab PO Q6H PRN PRN Reason: Pain, Moderate (4-6) Simvastatin (Zocor) 40 mg PO QHS [facility] Last Admin: 09/07/16 22:35 Dose: 40 mg Tamsulosin HCl (Flomax) 0.4 mg PO QDAY [facility] Physical Examination Vital Signs Pulse Resp Pulse Ox 157 H 16 97 09/07/16 17:12 09/07/16 17:12 09/07/16 17:12 General appearance: no acute distress HEENT: Positive: PERRL Neck: Positive: trachea midline Cardiac: Positive: irregularly irregular Neuro: Positive: Grossly Intact Results 09/08/16 04:51 09/08/16 04:51 Cardiac Enzymes 09/08/16 Range/Units 04:51 AST 16 (5-40) units/L CBC 09/08/16 Range/Units 04:51 WBC 10.1 (4.5-11.0) K/mm3 RBC 4.73 (3.65-5.03) M/mm3 Hgb 10.3 L (11.8-15.2) gm/dl Hct 33.2 L (35.5-45.6) % Plt Count 291 (140-440) K/mm3 Lymph # 1.8 (1.2-5.4) K/mm3 [place] # 1.1 H (0.0-0.8) K/mm3 Eos # 0.1 (0.0-0.4) K/mm3 Baso # 0.1 (0.0-0.1) K/mm3 Comprehensive Metabolic Panel 09/08/16 Range/Units 04:51 Sodium 141 (137-145) mmol/L Potassium 3.8 (3.6-5.0) mmol/L Chloride 99.4 (98-107) mmol/L Carbon Dioxide 29 (22-30) mmol/L BUN 7 L (9-20) mg/dL Creatinine 0.9 (0.8-1.5) mg/dL Glucose 133 H (75-100) mg/dL Calcium 9.1 (8.4-10.2) mg/dL AST 16 (5-40) units/L ALT 20 (7-56) units/L Alkaline Phosphatase 82 (35-129) units/L Total Protein 7.0 (6.3-8.2) g/dL Albumin 2.9 L (3.9-5) g/dL EKG interpretations - EKG Supraventricular dysrhythmia: atrial flutter Assessment and Plan Atrial flutter, uncertain duration on IV diltiazem and heparin drip Diabetes mellitus Recommendations: Chest CTA for rule out PE. If patient remains in atrial flutter we will plan for a ES guided cardioversion tomorrow.
[2016-09-08] MEDS ORDERED: CARDIZEM PO SCH ×3 (12:00→18:00)
[2016-09-08] MEDS ORDERED: NACL ONE (16:28)
[2016-09-08] MEDS ORDERED: LEVAQUIN 750MG/150ML 750 MG/150 ML BAG IV SCH (18:00)
[2016-09-08] MEDS: HEPARIN/ 0.45% NACL-25,000 UNIT/500 ML 25,000 UNIT/500 ML BAG IV SCH ×2 (18:23→21:18)
[2016-09-08] MEDS: FLOMAX PO SCH (18:29)
[2016-09-08] MEDS: PEPCID PO SCH (18:29)
[2016-09-08] MEDS: COZAAR PO SCH (22:21)
[2016-09-08] MEDS: CARDIZEM CD PO SCH (22:22)
[2016-09-08] MEDS: ZOCOR PO SCH (22:23)
--- NOTE | 2016-09-09 02:40 | Consultation ---
CONSULTING PHYSICIAN: Jeison Vee MD REASON FOR CONSULTATION: Atrial fibrillation with rapid ventricular response, altered mental status. CHIEF COMPLAINT AND HISTORY OF PRESENT ILLNESS: The patient is a 70-year-old -[place]ish male with past medical history significant really only for diabetes and with a remote 20+ pack year tobacco smoking history who states really over the past couple of months, he has been experiencing increased dyspnea on exertion, generalized weakness, lightheadedness. Denied any real palpitations, did not think much about it. In the preceding few days, the severity of his symptoms increased. He also noticed some left precordial pain, some pain in the left neck area. Denied nausea, vomiting, or overt aspiration, came to the Emergency Room to get evaluated and was found to be in atrial fibrillation with a rapid ventricular response. ICU admission was requested for Cardizem drip. When I stopped by to see him, he was still feeling a little bit short of breath with dyspnea, I should say but denied any current chest pains. He had been seen by the public works manager. I was trying to get a handle of what the plan was going to be. He denied any new onset of leg pain or swelling. Denied any acute onset to his symptoms rather they were insidious in nature. Denied fevers or chills. This really is as much of the history of presentation as I have. Also, denied any significant bleeding diathesis or history. PAST MEDICAL HISTORY: Again, significant for diabetes, hyperlipidemia. He is obese. PAST SURGICAL HISTORY: He states he has a metal irma in his right leg. MEDICATIONS: He was on at the time I stopped by to see him, according to the medication administration record included the following: Tylenol 650 mg p.o. q.4h. p.r.n., Cardizem drip was going at 5 mg per hour. He has been started on p.o. Cardizem 30 mg p.o. q.6h., glipizide 5 mg p.o. daily. Heparin, he was on IV heparin drip. He is on Dilaudid 0.5 mg IV q. 3 hours p.r.n., metformin 1 gram p.o. b.i.d., Zofran 4 mg IV q. 3 hours p.r.n. nausea and vomiting, Percocet 1 tablet p.o. q. 6 hours p.r.n., Zocor 40 mg p.o. at bedtime, Flomax 0.4 mg p.o. daily. ALLERGIES: No known drug allergies. DIET: Obese gentleman. Denies acute weight loss or gain in the preceding few weeks to months. FAMILY AND SOCIAL HISTORY: Lives in the community. There is a family history of diabetes. No current alcohol, tobacco, or illicit drug use or abuse. He does have about a [id number] remote tobacco smoking history. REVIEW OF SYSTEMS: No loss of consciousness. No new onset seizures. No new onset focal weakness. Denies gross hematochezia or melena. Denies gross hematuria or dysuria. No hematemesis. No hemoptysis. No palpitations. Complete review of systems obtained. Pertinent positives and/or negatives as in body of history above, otherwise noncontributory. PHYSICAL EXAMINATION: VITAL SIGNS: At presentation, he was afebrile, temperature 98.7, pulse was 157, respiratory rate was 16, blood pressure was 121/85, oxygen sats were 97%, inspired oxygen concentration was not recorded. HEAD, EYES, EARS, NOSE, AND THROAT: Pupils were equal, round, about 3 mm, reactive to light. Extraocular muscle movements are intact. Grossly, there were no palpable lymph nodes in the supraclavicular or submandibular lymph node chains. No significant posterior oropharyngeal erythema. He does have a Mallampati #3 oropharynx. LUNGS: Auscultation of both lung londono unremarkable. Lungs were clear bilaterally. HEART: Heart sounds 1 and 2 were heard. Irregular rate and rhythm at the time of my evaluation. ABDOMEN: Soft, full, bowel sounds are positive, nontender. EXTREMITIES: Without overt digital clubbing, cyanosis, or pedal edema. NEUROLOGIC: The exam was grossly nonfocal. LABORATORY DATA: From my review are as follows: White cell count on admission 13,000, hemoglobin 10.6, hematocrit 35.0, platelets of 329. INR was 1.20. Venous blood gas showed a pH of 7.37. Serum sodium was 141, potassium 3.9, chloride 97, bicarbonate 25, BUN 7, creatinine 0.9, and glucose of ____. Lactic acid level was elevated at 2.3. BNP was within normal limits. Cardiac enzymes within normal limits. Albumin 3.3. Otherwise, liver function tests within normal limits. TSH was within normal limits. Radiographic studies have been reviewed. I have also reviewed the radiologist's interpretation. The film is rotated to the right. Nonetheless, there appears to be a process going on on the left chest. Appears to be elevation of the left hemidiaphragm and areas of atelectasis in this lung. I will be going back to ask if he has a prior history of intervention in that lung. I cannot rule out a small effusion in that lung. Difficult to define the left heart border. ASSESSMENT AND PLAN: We have an elderly gentleman in with shortness of breath, presumably secondary to atrial fibrillation with rapid ventricular response, but I am bothered by the chest x-ray and there may be another primary pulmonary problem. From a respiratory standpoint, I will get an arterial blood gas on him on room air and in particular I want to check for any evidence of chronic CO2 retention. I will get a stat D-dimer on him, but I am also going to get a CTA of his chest with IV contrast to ensure that we are not dealing with venous thromboembolic disorders and to better evaluate the mediastinum and the pulmonary parenchyma. Oxygen will be titrated to keep sats greater than or equal to about 92-94%. Aspiration precautions will be maintained. Bilevel positive airway pressure ventilation therapy will be offered empirically at bedtime, in case, there is indeed significant atelectasis to recruit alveoli and treat any perhaps undiagnosed sleep apnea. Further recommendations will depend on those findings. From a cardiovascular standpoint, he is on a Cardizem drip, rate control will be per Cardiology as will the acute coronary syndrome workup. His rate is better controlled now. We will follow him clinically. From a GI and nutritional standpoint, aspiration precautions are being maintained. Oral nutrition will be the feeding modality of choice. I will be putting him on GI prophylaxis now. From an infectious disease standpoint, I note the leukocytosis at presentation, unclear the significance; however, in the setting of the chest x-ray picture, I will get a CRP level and consideration will be given for empiric treatment. He will be cultured. I should say, I will send sputum for cultures and sensitivities, but follow him clinically off antibiotics at this point. From a LAP CHECKER standpoint, the exam is grossly nonfocal. No acute indication for neuro imaging. We will follow him clinically. From a renal standpoint, no major electrolyte abnormalities at this point. He should be able to tolerate the contrast. He does not have an allergy to that. Inputs and outputs will be followed. Electrolytes will be continued as necessary. Again, from infectious disease standpoint, I will repeat the lactic acid level as well as the CRP level. From a general and hospital healthcare maintenance standpoint, he is going to be on GI prophylaxis. He is on full anticoagulation. Flu and pneumonia vaccination will be per protocol. Thank you very much for the consult Dr. Vee. We will follow along and make further recommendations as picture progresses/becomes clearer. At this point, I have spent about 30-35 minutes of critical care time without overlap and excluding any procedural time that may be necessary. He is critically ill and will be observed in the Intensive Care Unit for now. He is at risk for further deterioration certainly in the short time. JOB# [id number] MESSI/SHAD
[2016-09-09 04:46] LABS: Anion Gap 16 mmol/L; BUN/Creatinine Ratio 8.57; Blood Urea Nitrogen 6 mg/dL (9-20); Calcium 9.1 mg/dL (8.4-10.2); Carbon Dioxide 27 mmol/L (22-30); Chloride 99.6 mmol/L (98-107); Glucose 99 mg/dL (75-100); Magnesium 1.8 mg/dL (1.7-2.3); Potassium 4.3 mmol/L (3.6-5.0); Sodium 138 mmol/L (137-145)
[2016-09-09] MEDS: APRESOLINE PO PRN (06:52)
[2016-09-09] MEDS: GLUCOPHAGE PO SCH ×2 (08:35→17:00)
[2016-09-09] MEDS: GLUCOTROL PO SCH (08:35)
--- NOTE | 2016-09-09 08:44 | Progress Note ---
Assessment and Plan Atrial flutter, uncertain duration rate controlled on oral cardizem Left Pleural effusion Diabetes mellitus Hypertension Recommendations: Echocardiogram for LVEF assessment. Optimal rate of his atrial flutter. Will cancel TTE today. Evaluation by EP for outpatient atrial flutter ablation. Subjective Date of service: 09/09/16 Interval history: Patient has no complaints. Atrial flutter on telemetry, rate 80. Objective Vital Signs Temp Pulse Resp Resp BP Pulse Ox 09/09/16 07:44 100 09/09/16 06:52 82 168/87 09/09/16 06:30 78 17 168/87 09/09/16 06:00 77 26 H 158/80 09/09/16 05:31 90 16 137/82 09/09/16 05:00 78 21 138/88 99 09/09/16 04:30 79 21 137/82 99 09/09/16 04:15 98.9 F 09/09/16 04:00 98.9 F 99 H 27 H 163/94 100 09/09/16 03:30 77 19 162/94 100 09/09/16 03:00 82 20 141/86 100 09/09/16 02:30 102 H 23 139/94 100 09/09/16 02:00 113 H 23 147/92 99 09/09/16 01:30 109 H 20 144/96 100 09/09/16 01:00 105 H 30 H 153/97 100 09/09/16 00:31 112 H 31 H 145/78 99 09/09/16 00:01 130 H 28 H 154/88 97 09/09/16 00:00 27 H 100 09/08/16 23:50 98.7 F 09/08/16 23:30 130 H 27 H 162/88 98 09/08/16 23:01 154 H 17 155/97 46 L 09/08/16 22:30 111 H 29 H 155/97 100 09/08/16 22:29 108 H 19 145/97 99 09/08/16 22:22 124 H 145/97 09/08/16 22:21 120 H 145/97 09/08/16 22:00 124 H 22 29 H 145/97 96 09/08/16 21:30 105 H 22 150/101 100 09/08/16 21:00 102 H 26 H 153/99 100 09/08/16 20:31 100 H 20 143/101 100 09/08/16 20:00 98.8 F 105 H 26 H 143/101 100 09/08/16 19:31 105 H 32 H 138/98 97 09/08/16 19:00 101 H 27 H 138/98 93 09/08/16 18:31 106 H 27 H 144/101 99 09/08/16 18:28 94 H 144/101 09/08/16 18:00 95 H 21 144/101 100 09/08/16 17:31 100 H 20 137/89 100 09/08/16 17:00 92 H 24 137/89 100 09/08/16 16:31 104 H 38 H 146/96 96 09/08/16 16:01 89 29 H 146/96 09/08/16 16:00 98.1 F 95 09/08/16 15:31 105 H 26 H 130/83 99 09/08/16 15:00 80 22 130/83 100 09/08/16 14:31 88 20 126/73 100 09/08/16 14:00 85 26 H 126/73 99 09/08/16 13:31 87 27 H 121/81 100 09/08/16 13:00 81 20 121/81 95 09/08/16 12:31 82 26 H 149/86 100 09/08/16 12:01 81 24 149/86 100 09/08/16 12:00 97.7 F 09/08/16 11:31 78 25 H 127/77 100 09/08/16 11:00 77 19 134/81 99 09/08/16 10:31 80 24 127/77 100 09/08/16 10:00 69 23 127/77 100 09/08/16 09:31 93 H 22 129/78 100 09/08/16 09:00 89 27 H 129/78 96 - Physical Examination General: No Apparent Distress HEENT: Positive: PERRL Neck: Positive: trachea midline Cardiac: Positive: irregularly irregular Lungs: Positive: Decreased Breath Sounds Neuro: Positive: Grossly Intact - Labs and Meds Comprehensive Metabolic Panel 09/09/16 Range/Units 03:59 Sodium 138 (137-145) mmol/L Potassium 4.3 (3.6-5.0) mmol/L Chloride 99.6 (98-107) mmol/L Carbon Dioxide 27 (22-30) mmol/L BUN 6 L (9-20) mg/dL Creatinine 0.7 L (0.8-1.5) mg/dL Glucose 99 (75-100) mg/dL Calcium 9.1 (8.4-10.2) mg/dL - Imaging and Cardiology EKG: report reviewed (Afib with rvr)
[2016-09-09] MEDS ORDERED: LEVAQUIN 500MG/100ML 500 MG/100 ML BAG IV SCH (10:00)
[2016-09-09] MEDS: PEPCID PO SCH (10:39)
--- NOTE | 2016-09-09 10:39 | Progress Note ---
Hospitalist Physical - Constitutional Vitals: Temp Pulse Resp BP Pulse Ox 97.7 F 82 17 168/87 100 09/09/16 08:00 09/09/16 06:52 09/09/16 06:30 09/09/16 06:52 09/09/16 07:44 General appearance: Present: no acute distress, well-nourished Results - Labs CBC & Chem 7: 09/08/16 04:51 09/09/16 03:59 Labs: Laboratory Last Values WBC 10.1 K/mm3 (4.5-11.0) 09/08/16 04:51 RBC 4.73 M/mm3 (3.65-5.03) 09/08/16 04:51 Hgb 10.3 gm/dl (11.8-15.2) L 09/08/16 04:51 Hct 33.2 % (35.5-45.6) L 09/08/16 04:51 MCV 70 fl (84-94) L 09/08/16 04:51 MCH 22 pg (28-32) L 09/08/16 04:51 MCHC 31 % (32-34) L 09/08/16 04:51 RDW 15.8 % (13.2-15.2) H 09/08/16 04:51 Plt Count 291 K/mm3 (140-440) 09/08/16 04:51 Lymph % (Auto) 18.1 % (13.4-35.0) 09/08/16 04:51 [place] % (Auto) 11.2 % (0.0-7.3) H 09/08/16 04:51 Eos % (Auto) 1.0 % (0.0-4.3) 09/08/16 04:51 Baso % (Auto) 0.7 % (0.0-1.8) 09/08/16 04:51 Lymph # 1.8 K/mm3 (1.2-5.4) 09/08/16 04:51 [place] # 1.1 K/mm3 (0.0-0.8) H 09/08/16 04:51 Eos # 0.1 K/mm3 (0.0-0.4) 09/08/16 04:51 Baso # 0.1 K/mm3 (0.0-0.1) 09/08/16 04:51 Seg Neutrophils % 69.0 % (40.0-70.0) 09/08/16 04:51 Seg Neutrophils # 6.9 K/mm3 (1.8-7.7) 09/08/16 04:51 PT 15.1 Sec. (12.2-14.9) H 09/07/16 17:50 INR 1.20 (0.87-1.13) H 09/07/16 17:50 APTT 32.9 Sec. (24.2-36.6) 09/07/16 17:50 D-Dimer 741.42 ng/mlDDU (0-234) H 09/08/16 13:14 Heparin Anti-Xa Level 0.52 U.I./ml (0.3-0.7) 09/08/16 19:50 VBG pH 7.369 (7.320-7.420) 09/07/16 17:50 Sodium 138 mmol/L (137-145) 09/09/16 03:59 Potassium 4.3 mmol/L (3.6-5.0) 09/09/16 03:59 Chloride 99.6 mmol/L (98-107) 09/09/16 03:59 Carbon Dioxide 27 mmol/L (22-30) 09/09/16 03:59 Anion Gap 16 mmol/L 09/09/16 03:59 BUN 6 mg/dL (9-20) L 09/09/16 03:59 Creatinine 0.7 mg/dL (0.8-1.5) L 09/09/16 03:59 Estimated GFR > 60 ml/min 09/09/16 03:59 BUN/Creatinine Ratio 8.57 % 09/09/16 03:59 Glucose 99 mg/dL (75-100) 09/09/16 03:59 POC Glucose 103 (70-105) 09/09/16 00:05 Hemoglobin A1c 6.6 % (4-6) H 09/08/16 04:51 Lactic Acid 1.2 mmol/L (0.7-2.0) 09/09/16 03:59 Calcium 9.1 mg/dL (8.4-10.2) 09/09/16 03:59 Magnesium 1.8 mg/dL (1.7-2.3) 09/09/16 03:59 Total Bilirubin 0.4 mg/dL (0.1-1.2) 09/08/16 04:51 AST 16 units/L (5-40) 09/08/16 04:51 ALT 20 units/L (7-56) 09/08/16 04:51 Alkaline Phosphatase 82 units/L (35-129) 09/08/16 04:51 Total Creatine Kinase 34 units/L (55-170) L 09/07/16 18:06 Troponin T < 0.010 ng/mL (0.00-0.029) 09/07/16 17:50 C-Reactive Protein 5.70 mg/dL (0.00-1.30) H 09/08/16 13:14 NT-Pro-B Natriuret Pep 547.2 pg/mL (0-900) 09/07/16 17:50 Total Protein 7.0 g/dL (6.3-8.2) 09/08/16 04:51 Albumin 2.9 g/dL (3.9-5) L 09/08/16 04:51 Albumin/Globulin Ratio 0.7 % 09/08/16 04:51 TSH 0.982 mlU/mL (0.270-4.200) 09/07/16 18:06 Free T4 1.12 ng/dL (0.76-1.46) 09/07/16 17:50 Ketones mmol/L (-0.28) 09/07/16 18:06
[2016-09-09] MEDS: CARDIZEM CD PO SCH (10:40)
[2016-09-09] MEDS: LEVAQUIN PO SCH (10:40)
[2016-09-09] MEDS: COZAAR PO SCH (10:41)
--- NOTE | 2016-09-09 10:45 | Progress Note ---
Assessment and Plan Assessment and plan: --Elevated d-dimer's, follow VQ scan vs CT chest without contrast Pulmonary following --Atrial flutter with rapid ventricular rate. On Cardizem drip Rate is better controlled, continue oral Cardizem Anticoagulation with heparin drip Cardiology following, possible ablation if no response to medical management inpatient versus outpatient --Type 2 diabetes mellitus, on oral hypoglycemics Moderate control, Accu-Chek sliding scale coverage and ADA diet, and oral meds Hemoglobin A1c 6.6 --Elevated lactic acid, rule out sepsis No evidence of sepsis at this point, patient is afebrile, normal WBC Closely monitor --Left lung atelectasis, questionable pneumonia Add empiric antibiotics Levaquin Follow CT chest --Dyslipidemia; Continue current lipid-lowering medications --History of BPH, stable on Flomax --DVT prophylaxis, patient is already on heparin drip --CODE STATUS; full code Consults and recommendations noted and appreciated Patient can be transferred out of ICU Follow pulmonary imaging studies VQ scan and CT scan Since condition treatment plan discussed in detail with the patient , his nurse case management Critical care time 31 minutes History Interval history: Patient seen and evaluated in his room in ICU this morning medical records reviewed Patient is on oral Cardizem, heart rate well-controlled Awaiting CT chest to rule out PE, patient reports iodine allergy, we will get VQ scan versus CT chest without contrast Patient has no new complaints Alert awake oriented 3 not in acute distress Hospitalist Physical - Constitutional Vitals: Temp Pulse Resp BP Pulse Ox 97.7 F 86 17 138/85 100 09/09/16 08:00 09/09/16 10:41 09/09/16 06:30 09/09/16 10:41 09/09/16 07:44 General appearance: Present: no acute distress, well-nourished - EENT Eyes: Present: PERRL, EOM intact - Neck Neck: Present: supple, normal ROM - Respiratory Respiratory: bilateral: diminished, rhonchi - Cardiovascular Rhythm: irregularly irregular Heart Sounds: Present: S1 & S2 - Extremities Extremities: no ischemia, pulses intact, pulses symmetrical Peripheral Pulses: within normal limits - Abdominal General gastrointestinal: soft, non-tender, non-distended, normal bowel sounds - Integumentary Integumentary: Present: clear, warm - Psychiatric Psychiatric: appropriate mood/affect, cooperative - Neurologic Neurologic: CNII-XII intact, moves all extremities Results - Labs CBC & Chem 7: 09/08/16 04:51 09/09/16 03:59 Labs: Laboratory Last Values WBC 10.1 K/mm3 (4.5-11.0) 09/08/16 04:51 RBC 4.73 M/mm3 (3.65-5.03) 09/08/16 04:51 Hgb 10.3 gm/dl (11.8-15.2) L 09/08/16 04:51 Hct 33.2 % (35.5-45.6) L 09/08/16 04:51 MCV 70 fl (84-94) L 09/08/16 04:51 MCH 22 pg (28-32) L 09/08/16 04:51 MCHC 31 % (32-34) L 09/08/16 04:51 RDW 15.8 % (13.2-15.2) H 09/08/16 04:51 Plt Count 291 K/mm3 (140-440) 09/08/16 04:51 Lymph % (Auto) 18.1 % (13.4-35.0) 09/08/16 04:51 [place] % (Auto) 11.2 % (0.0-7.3) H 09/08/16 04:51 Eos % (Auto) 1.0 % (0.0-4.3) 09/08/16 04:51 Baso % (Auto) 0.7 % (0.0-1.8) 09/08/16 04:51 Lymph # 1.8 K/mm3 (1.2-5.4) 09/08/16 04:51 [place] # 1.1 K/mm3 (0.0-0.8) H 09/08/16 04:51 Eos # 0.1 K/mm3 (0.0-0.4) 09/08/16 04:51 Baso # 0.1 K/mm3 (0.0-0.1) 09/08/16 04:51 Seg Neutrophils % 69.0 % (40.0-70.0) 09/08/16 04:51 Seg Neutrophils # 6.9 K/mm3 (1.8-7.7) 09/08/16 04:51 PT 15.1 Sec. (12.2-14.9) H 09/07/16 17:50 INR 1.20 (0.87-1.13) H 09/07/16 17:50 APTT 32.9 Sec. (24.2-36.6) 09/07/16 17:50 D-Dimer 741.42 ng/mlDDU (0-234) H 09/08/16 13:14 Heparin Anti-Xa Level 0.52 U.I./ml (0.3-0.7) 09/08/16 19:50 VBG pH 7.369 (7.320-7.420) 09/07/16 17:50 Sodium 138 mmol/L (137-145) 09/09/16 03:59 Potassium 4.3 mmol/L (3.6-5.0) 09/09/16 03:59 Chloride 99.6 mmol/L (98-107) 09/09/16 03:59 Carbon Dioxide 27 mmol/L (22-30) 09/09/16 03:59 Anion Gap 16 mmol/L 09/09/16 03:59 BUN 6 mg/dL (9-20) L 09/09/16 03:59 Creatinine 0.7 mg/dL (0.8-1.5) L 09/09/16 03:59 Estimated GFR > 60 ml/min 09/09/16 03:59 BUN/Creatinine Ratio 8.57 % 09/09/16 03:59 Glucose 99 mg/dL (75-100) 09/09/16 03:59 POC Glucose 103 (70-105) 09/09/16 00:05 Hemoglobin A1c 6.6 % (4-6) H 09/08/16 04:51 Lactic Acid 1.2 mmol/L (0.7-2.0) 09/09/16 03:59 Calcium 9.1 mg/dL (8.4-10.2) 09/09/16 03:59 Magnesium 1.8 mg/dL (1.7-2.3) 09/09/16 03:59 Total Bilirubin 0.4 mg/dL (0.1-1.2) 09/08/16 04:51 AST 16 units/L (5-40) 09/08/16 04:51 ALT 20 units/L (7-56) 09/08/16 04:51 Alkaline Phosphatase 82 units/L (35-129) 09/08/16 04:51 Total Creatine Kinase 34 units/L (55-170) L 09/07/16 18:06 Troponin T < 0.010 ng/mL (0.00-0.029) 09/07/16 17:50 C-Reactive Protein 5.70 mg/dL (0.00-1.30) H 09/08/16 13:14 NT-Pro-B Natriuret Pep 547.2 pg/mL (0-900) 09/07/16 17:50 Total Protein 7.0 g/dL (6.3-8.2) 09/08/16 04:51 Albumin 2.9 g/dL (3.9-5) L 09/08/16 04:51 Albumin/Globulin Ratio 0.7 % 09/08/16 04:51 TSH 0.982 mlU/mL (0.270-4.200) 09/07/16 18:06 Free T4 1.12 ng/dL (0.76-1.46) 09/07/16 17:50 Ketones mmol/L (-0.28) 09/07/16 18:06
--- NOTE | 2016-09-09 11:28 | Progress Note ---
Assessment and Plan - Patient Problems (1) Acute hypoxemic respiratory failure Current Visit: Yes Status: Acute Plan to address problem: - get VQ scan for VTE w/up - get CT chest without contrast to better evaluate pulmonary parenchyma (He denies any h/o left chest trauma / intervention - continue supplemental oxygen to keep sats >92% - follow ABG on RA - prn bronchodilators (2) Abnormal CXR (chest x-ray) Current Visit: Yes Status: Acute Plan to address problem: - follow non contrast chest CT (3) Obesity Current Visit: Yes Status: Acute Qualifiers: Obesity type: O Obesity severity: O Plan to address problem: - weight loss counselled - outpatient sleep evaluation appropriate (4) Atrial flutter with rapid ventricular response Current Visit: Yes Status: Acute Plan to address problem: - rate controlled - continue metoprolol - continue IV heparin - per cardiology otherwise (5) HTN (hypertension) Current Visit: Yes Status: Chronic Qualifiers: Hypertension type: essential hypertension Qualified Code(s): I10 - Essential (primary) hypertension Plan to address problem: - on oral anti-hypertensives (6) Discharge planning issues Current Visit: Yes Status: Acute Plan to address problem: - await VQ and CT chest results ...tentatively can transfer to telemetry if OK with cardiology 32' CCT Subjective Date of service: 09/09/16 Principal diagnosis: Atrial Fib with RVR; Acute Hypoxemic Resp Failure Interval history: Seen and examined at bedside; 24 hour events reviewed; nursing and respiratory care staff consulted; no adverse overnight events reported to me; resting peacefully; eating lunch; denies acute chest pains or increased SOB; states he is allergic to iodine and CTA cancelled Objective Vital Signs - 12hr 09/08/16 09/08/16 09/09/16 23:30 23:50 00:00 Temperature 98.7 F Pulse Rate 130 H Respiratory 27 H 27 H Rate Blood Pressure 162/88 O2 Sat by Pulse 98 100 Oximetry 09/09/16 09/09/16 09/09/16 00:01 00:31 01:00 Temperature Pulse Rate 130 H 112 H 105 H Respiratory 28 H 31 H 30 H Rate Blood Pressure 154/88 145/78 153/97 O2 Sat by Pulse 97 99 100 Oximetry 09/09/16 09/09/16 09/09/16 01:30 02:00 02:30 Temperature Pulse Rate 109 H 113 H 102 H Respiratory 20 23 23 Rate Blood Pressure 144/96 147/92 139/94 O2 Sat by Pulse 100 99 100 Oximetry 09/09/16 09/09/16 09/09/16 03:00 03:30 04:00 Temperature 98.9 F Pulse Rate 82 77 99 H Respiratory 20 19 27 H Rate Blood Pressure 141/86 162/94 163/94 O2 Sat by Pulse 100 100 100 Oximetry 09/09/16 09/09/16 09/09/16 04:15 04:30 05:00 Temperature 98.9 F Pulse Rate 79 78 Respiratory 21 21 Rate Blood Pressure 137/82 138/88 O2 Sat by Pulse 99 99 Oximetry 09/09/16 09/09/16 09/09/16 05:31 06:00 06:30 Temperature Pulse Rate 90 77 78 Respiratory 16 26 H 17 Rate Blood Pressure 137/82 158/80 168/87 O2 Sat by Pulse Oximetry 09/09/16 09/09/16 09/09/16 06:52 07:00 07:30 Temperature Pulse Rate 82 77 78 Respiratory 16 16 Rate Blood Pressure 168/87 158/80 153/78 O2 Sat by Pulse Oximetry 09/09/16 09/09/16 09/09/16 07:44 08:00 08:01 Temperature 97.7 F Pulse Rate 82 Respiratory 18 Rate Blood Pressure 166/73 O2 Sat by Pulse 100 99 Oximetry 09/09/16 09/09/16 09/09/16 08:30 09:01 09:30 Temperature Pulse Rate 91 H 83 89 Respiratory 20 22 17 Rate Blood Pressure 130/90 135/77 128/74 O2 Sat by Pulse 99 98 100 Oximetry 09/09/16 09/09/16 09/09/16 10:00 10:31 10:40 Temperature Pulse Rate 90 100 H 86 Respiratory 26 H 21 Rate Blood Pressure 138/85 138/85 138/85 O2 Sat by Pulse 100 100 Oximetry 09/09/16 09/09/16 10:41 11:00 Temperature Pulse Rate 86 88 Respiratory 21 Rate Blood Pressure 138/85 120/79 O2 Sat by Pulse 99 Oximetry Constitutional: no acute distress, alert Eyes: non-icteric ENT: oropharynx moist Neck: supple, no lymphadenopathy Effort: normal Ascultation: Bilateral: diminished breath sounds, rhonchi (posterior bases) Cardiovascular: irregular rhythm Gastrointestinal: normoactive bowel sounds, soft, non-tender, non-distended Integumentary: normal Extremities: no cyanosis, no edema, pulses normal, no ischemia or petechiae Neurologic: normal mental status, non-focal exam, pupils equal and round, motor strength normal and Psychiatric: mood appropriate, affect normal CBC and BMP: 09/08/16 04:51 09/09/16 03:59 ABG, PT/INR, D-dimer: PT/INR, D-dimer PT 15.1 Sec. (12.2-14.9) H 09/07/16 17:50 INR 1.20 (0.87-1.13) H 09/07/16 17:50 D-Dimer 741.42 ng/mlDDU (0-234) H 09/08/16 13:14 Abnormal lab findings: Abnormal Labs 09/07/16 09/07/16 09/08/16 22:28 23:36 04:51 Hgb 10.3 L Hct 33.2 L MCV 70 L MCH 22 L MCHC 31 L RDW 15.8 H [place] % (Auto) 11.2 H [place] # 1.1 H D-Dimer BUN Creatinine Glucose POC Glucose 121 H 119 H Hemoglobin A1c Lactic Acid C-Reactive Protein Albumin 09/08/16 09/08/16 09/08/16 04:51 04:51 07:42 Hgb Hct MCV MCH MCHC RDW [place] % (Auto) [place] # D-Dimer BUN 7 L Creatinine Glucose 133 H POC Glucose 118 H Hemoglobin A1c 6.6 H Lactic Acid C-Reactive Protein Albumin 2.9 L 09/08/16 09/08/16 09/08/16 13:14 13:14 13:14 Hgb Hct MCV MCH MCHC RDW [place] % (Auto) [place] # D-Dimer 741.42 H BUN Creatinine Glucose POC Glucose Hemoglobin A1c Lactic Acid 2.5 H* C-Reactive Protein 5.70 H Albumin 09/08/16 09/08/16 09/09/16 15:50 21:42 03:59 Hgb Hct MCV MCH MCHC RDW [place] % (Auto) [place] # D-Dimer BUN 6 L Creatinine 0.7 L Glucose POC Glucose 69 L 69 L Hemoglobin A1c Lactic Acid C-Reactive Protein Albumin Chest x-ray: image reviewed
--- NOTE | 2016-09-09 12:35 | Event Note ---
Date: 09/09/16 The patient is a 70-year-old man who presented to the emergency room with shortness of breath. His past history of hypertension, diabetes and hyperlipidemia. He also has COPD and prior tobacco abuse. On presentation in the emergency room, the patient's chest x-ray is markedly abnormal. He has what appears to be a large left pleural effusion with near complete collapse of the left lung, as well as midline shift of the trachea to the right side. Incidental finding on presentation is atrial flutter fibrillation, chronicity of this is uncertain at this time. The patient denies any prior cardiac history or prior history of cardiac tachyarrhythmia. On his home medication list, there is no AV travis blocking agent all oral anticoagulation therapy. Recommendation: It will be prudent to get a CT scan of the chest, and peripheral further intervention as necessary for elucidation and management of the left pleural effusion and left lung compromise. With regards to atrial fibrillation, we'll get an echocardiogram for left ventricular function assessment, optimize rate control of atrial fibrillation with AV travis blocking medications, and future oral anticoagulation therapy will depend on clinical course. It is likely that the atrial fibrillation, if recent, would resolve with resolution of his pulmonary disease.
[2016-09-09] MEDS: FLOMAX PO SCH (13:06)
[2016-09-09] MEDS: HEPARIN/ 0.45% NACL-25,000 UNIT/500 ML 25,000 UNIT/500 ML BAG IV SCH (13:09)
--- NOTE | 2016-09-09 16:14 | Nuclear Medicine Report ---
Nuclear medicine lung scan. Findings: The ventilation study demonstrates normal activity in the right lung. Minimal activity is seen in the apex of the left lung. There is a matching perfusion defect involving most of the left lung. Activity throughout the right lung is normal. Impression: Matching ventilation/perfusion defects in the left lung corresponding to atelectasis seen on chest x-ray. This is consistent with a low probability of embolic disease.
--- NOTE | 2016-09-09 16:24 | Cat Scan Report ---
CT of the chest without contrast. History: Chest pain and dyspnea. Findings: There is a large soft tissue mass involving the left upper lobe, difficult to measure due to secondary atelectasis involving both the left upper and lower lobes. Minimal aeration persists in the apical posterior segment of the left upper lobe. The left upper lobe bronchus is completely occluded. There is extrinsic compression of the left lower lobe bronchus with atelectasis of the left lower lobe. A small left pleural effusion is present. A 1 cm node is seen in the pretracheal region. The right lung is clear. A lipoma is is noted in the right chest wall just deep to the pectoral muscle. Images which include a portion of the upper abdomen reveal several ill-defined hypodensities within the liver consistent with metastatic disease. A small nodule in the left adrenal gland is consistent with a benign process. Impression: 1. 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 There is a small left pleural effusion. 2. Multiple metastatic foci are seen within the liver. 3. Lipoma of the right chest wall.
[2016-09-09 18:24] LABS: ISTAT Base Excess 2; ISTAT HCO3 26.8; ISTAT PCO2 42.1 (35-45); ISTAT PH 7.412 (7.35-7.45); ISTAT PO2 73 (80-105); ISTAT SO2 95; ISTAT TCO2 28
[2016-09-09 21:48] LABS: INR 1.07 (0.87-1.13)
[2016-09-10 04:31] LABS: Hematocrit 33.9 % (35.5-45.6); Hemoglobin 10.7 gm/dl (11.8-15.2)
[2016-09-10] MEDS: HEPARIN/ 0.45% NACL-25,000 UNIT/500 ML 25,000 UNIT/500 ML BAG IV SCH ×2 (06:15→16:45)
[2016-09-10] MEDS: GLUCOTROL PO SCH (07:58)
[2016-09-10] MEDS: GLUCOPHAGE PO SCH (07:58)
--- NOTE | 2016-09-10 08:28 | Event Note ---
Date: 09/10/16 Patient with a history of shortness of breath who presents with near complete atelectasis of his left lung with left pleural effusion. A noncontrasted CT was performed. The patient is currently scheduled today for an ultrasound guided thoracentesis. He will eventually need biopsy of his left pulmonary mass however, for further evaluation, the patient will need a CT of the chest with IV contrast. This has been ordered. Following the CT, a biopsy will then be scheduled to determine the etiology of the patient's left atelectasis.
[2016-09-10] MEDS: CARDIZEM CD PO SCH (09:42)
[2016-09-10] MEDS: COZAAR PO SCH (09:45)
[2016-09-10] MEDS: LEVAQUIN PO SCH (09:46)
[2016-09-10] MEDS: FLOMAX PO SCH (09:46)
[2016-09-10] MEDS: PEPCID PO SCH (09:47)
--- NOTE | 2016-09-10 10:05 | Progress Note ---
Assessment and Plan Atrial fib/flutter, uncertain duration rate controlled on oral cardizem Left Pleural effusion Left lung Atelectasis Diabetes mellitus Hypertension Subjective Date of service: 09/10/16 Principal diagnosis: Atrial Fib with RVR; Acute Hypoxemic Resp Failure Interval history: Patient has no complaints. Objective Vital Signs Temp Pulse Resp BP Pulse Ox 09/10/16 09:45 90 132/79 09/10/16 09:42 89 132/79 09/10/16 09:00 76 21 137/78 96 09/10/16 08:30 78 23 133/77 98 09/10/16 08:00 97.9 F 77 17 133/77 99 09/10/16 07:31 76 16 140/78 99 09/10/16 07:00 77 17 134/84 99 09/10/16 06:30 78 19 135/76 98 09/10/16 06:01 78 16 142/67 100 09/10/16 05:30 80 19 131/69 100 09/10/16 05:01 76 17 126/62 100 09/10/16 04:31 85 16 117/67 100 09/10/16 04:00 98.3 F 80 19 123/72 97 09/10/16 03:30 76 20 125/71 99 09/10/16 03:00 73 20 132/68 99 09/10/16 02:31 77 42 H 129/74 98 09/10/16 02:01 92 H 19 129/74 100 09/10/16 01:31 80 23 129/74 100 09/10/16 01:00 89 21 129/74 96 09/10/16 00:30 94 H 22 133/74 100 09/10/16 00:00 84 20 129/77 99 09/09/16 23:44 98.1 F 09/09/16 23:36 83 20 130/80 100 09/09/16 23:30 81 23 135/82 100 09/09/16 23:26 80 24 130/80 99 09/09/16 23:01 83 23 130/80 100 09/09/16 22:30 88 19 122/76 92 09/09/16 22:01 90 23 140/82 98 09/09/16 22:00 97 H 09/09/16 21:30 103 H 25 H 137/85 71 L 09/09/16 21:01 79 23 130/74 100 09/09/16 20:31 76 12 149/113 100 09/09/16 20:00 78 24 149/113 95 09/09/16 19:56 98.2 F 09/09/16 19:31 94 H 27 H 149/94 97 09/09/16 19:00 82 15 123/70 09/09/16 18:30 78 26 H 125/70 87 09/09/16 18:09 97 09/09/16 18:00 78 15 124/64 99 09/09/16 17:31 95 H 32 H 145/96 97 09/09/16 17:01 105 H 145/96 100 09/09/16 16:30 80 21 130/88 94 09/09/16 16:01 81 20 122/66 09/09/16 16:00 98.1 F 20 97 09/09/16 15:45 85 15 09/09/16 14:30 79 20 127/75 99 09/09/16 14:00 78 26 H 143/74 100 09/09/16 13:30 79 20 139/78 100 09/09/16 13:01 105 H 28 H 139/77 100 09/09/16 12:30 80 26 H 143/74 09/09/16 12:00 97.5 F L 94 H 25 H 137/76 09/09/16 11:45 16 100 09/09/16 11:31 94 H 21 127/76 93 09/09/16 11:00 88 21 120/79 99 09/09/16 10:41 86 138/85 09/09/16 10:40 86 138/85 09/09/16 10:31 100 H 21 138/85 100 - Physical Examination General: No Apparent Distress HEENT: Positive: PERRL Neck: Positive: trachea midline Cardiac: Positive: irregularly irregular Lungs: Positive: Decreased Breath Sounds Neuro: Positive: Grossly Intact - Labs and Meds Cardiac Enzymes 09/10/16 Range/Units 03:49 Lactate Dehydrogenase 208 H (91-180) units/L Coagulation 09/09/16 Range/Units 21:30 PT 13.8 (12.2-14.9) Sec. INR 1.07 (0.87-1.13) CBC 09/10/16 Range/Units 03:49 Hgb 10.7 L (11.8-15.2) gm/dl Hct 33.9 L (35.5-45.6) % Plt Count 276 (140-440) K/mm3 Comprehensive Metabolic Panel 09/09/16 Range/Units 21:30 Total Protein 6.8 (6.3-8.2) g/dL - Imaging and Cardiology EKG: report reviewed (Afib with rvr)
--- NOTE | 2016-09-10 11:18 | Progress Note ---
Assessment and Plan - Patient Problems (1) Acute hypoxemic respiratory failure Current Visit: Yes Status: Acute Plan to address problem: - get VQ scan for VTE w/up - CT chest reviewed - continue supplemental oxygen to keep sats >92% - continue prn bronchodilators - without IV contrast difficult to define lung mass vs atelectatic areas very well - CT needle biopsy post thoracentesis and hopefully can get diagnosis thereafter (2) Abnormal CXR (chest x-ray) Current Visit: Yes Status: Acute Plan to address problem: - left pleural effusion (complex) + atelectatic lung +/- lung mas (3) Obesity Current Visit: Yes Status: Acute Qualifiers: Obesity type: O Obesity severity: O Plan to address problem: - weight loss counselled (but apparently has lost quite a bit) - outpatient sleep evaluation appropriate (4) Atrial flutter with rapid ventricular response Current Visit: Yes Status: Acute Plan to address problem: - rate controlled - continue metoprolol - continue IV heparin - per cardiology otherwise (5) HTN (hypertension) Current Visit: Yes Status: Chronic Qualifiers: Hypertension type: essential hypertension Qualified Code(s): I10 - Essential (primary) hypertension Plan to address problem: - on oral anti-hypertensives (6) Discharge planning issues Current Visit: Yes Status: Acute Plan to address problem: ..OK to transfer to telemetry floor Subjective Date of service: 09/10/16 Principal diagnosis: Atrial Fib with RVR; Acute Hypoxemic Resp Failure Interval history: Seen and examined at bedside; 24 hour events reviewed; nursing and respiratory care staff consulted; no adverse overnight events reported to me; resting in bed ; CT reviewed and findings noted; now gives a history of a 30+ pound weight loss in last 2-3 months; no hemoptysis and no gross bleeding; awaiting thoracentesis Objective Vital Signs - 12hr 09/09/16 09/09/16 09/09/16 23:26 23:30 23:36 Temperature Pulse Rate 80 81 83 Respiratory 24 23 20 Rate Blood Pressure 130/80 135/82 130/80 O2 Sat by Pulse 99 100 100 Oximetry 09/09/16 09/10/16 09/10/16 23:44 00:00 00:30 Temperature 98.1 F Pulse Rate 84 94 H Respiratory 20 22 Rate Blood Pressure 129/77 133/74 O2 Sat by Pulse 99 100 Oximetry 09/10/16 09/10/16 09/10/16 01:00 01:31 02:01 Temperature Pulse Rate 89 80 92 H Respiratory 21 23 19 Rate Blood Pressure 129/74 129/74 129/74 O2 Sat by Pulse 96 100 100 Oximetry 09/10/16 09/10/16 09/10/16 02:31 03:00 03:30 Temperature Pulse Rate 77 73 76 Respiratory 42 H 20 20 Rate Blood Pressure 129/74 132/68 125/71 O2 Sat by Pulse 98 99 99 Oximetry 09/10/16 09/10/16 09/10/16 04:00 04:31 05:01 Temperature 98.3 F Pulse Rate 80 85 76 Respiratory 19 16 17 Rate Blood Pressure 123/72 117/67 126/62 O2 Sat by Pulse 97 100 100 Oximetry 09/10/16 09/10/16 09/10/16 05:30 06:01 06:30 Temperature Pulse Rate 80 78 78 Respiratory 19 16 19 Rate Blood Pressure 131/69 142/67 135/76 O2 Sat by Pulse 100 100 98 Oximetry 09/10/16 09/10/16 09/10/16 07:00 07:31 08:00 Temperature 97.9 F Pulse Rate 77 76 77 Respiratory 17 16 17 Rate Blood Pressure 134/84 140/78 133/77 O2 Sat by Pulse 99 99 99 Oximetry 09/10/16 09/10/16 09/10/16 08:30 09:00 09:31 Temperature Pulse Rate 78 76 89 Respiratory 23 21 24 Rate Blood Pressure 133/77 137/78 137/78 O2 Sat by Pulse 98 96 99 Oximetry 09/10/16 09/10/16 09/10/16 09:42 09:45 10:00 Temperature Pulse Rate 89 90 77 Respiratory 19 Rate Blood Pressure 132/79 132/79 136/80 O2 Sat by Pulse 98 Oximetry Constitutional: no acute distress, alert Eyes: non-icteric ENT: oropharynx moist Neck: supple, no lymphadenopathy Effort: normal Ascultation: Left: diminished breath sounds, Bilateral: rhonchi (posterior bases ) Cardiovascular: irregular rhythm Gastrointestinal: normoactive bowel sounds, soft, non-tender, non-distended Integumentary: normal Extremities: no cyanosis, no edema, pulses normal, no ischemia or petechiae Neurologic: normal mental status, non-focal exam, pupils equal and round, motor strength normal and Psychiatric: mood appropriate, affect normal CBC and BMP: 09/10/16 03:49 09/09/16 03:59 ABG, PT/INR, D-dimer: ABG POC ABG pH 7.412 (7.35-7.45) 09/09/16 18:09 POC ABG pCO2 42.1 (35-45) 09/09/16 18:09 POC ABG pO2 73 (80-105) L 09/09/16 18:09 POC ABG HCO3 26.8 09/09/16 18:09 POC ABG Total CO2 28 09/09/16 18:09 POC ABG O2 Sat 95 09/09/16 18:09 PT/INR, D-dimer PT 13.8 Sec. (12.2-14.9) 09/09/16 21:30 INR 1.07 (0.87-1.13) 09/09/16 21:30 D-Dimer 741.42 ng/mlDDU (0-234) H 09/08/16 13:14 Abnormal lab findings: Abnormal Labs 09/07/16 09/07/16 09/08/16 22:28 23:36 04:51 Hgb 10.3 L Hct 33.2 L MCV 70 L MCH 22 L MCHC 31 L RDW 15.8 H [place] % (Auto) 11.2 H [place] # 1.1 H D-Dimer POC ABG pO2 BUN Creatinine Glucose POC Glucose 121 H 119 H Hemoglobin A1c Lactic Acid Lactate Dehydrogenase C-Reactive Protein Albumin 09/08/16 09/08/16 09/08/16 04:51 04:51 07:42 Hgb Hct MCV MCH MCHC RDW [place] % (Auto) [place] # D-Dimer POC ABG pO2 BUN 7 L Creatinine Glucose 133 H POC Glucose 118 H Hemoglobin A1c 6.6 H Lactic Acid Lactate Dehydrogenase C-Reactive Protein Albumin 2.9 L 09/08/16 09/08/16 09/08/16 13:14 13:14 13:14 Hgb Hct MCV MCH MCHC RDW [place] % (Auto) [place] # D-Dimer 741.42 H POC ABG pO2 BUN Creatinine Glucose POC Glucose Hemoglobin A1c Lactic Acid 2.5 H* Lactate Dehydrogenase C-Reactive Protein 5.70 H Albumin 09/08/16 09/08/16 09/09/16 15:50 21:42 03:59 Hgb Hct MCV MCH MCHC RDW [place] % (Auto) [place] # D-Dimer POC ABG pO2 BUN 6 L Creatinine 0.7 L Glucose POC Glucose 69 L 69 L Hemoglobin A1c Lactic Acid Lactate Dehydrogenase C-Reactive Protein Albumin 09/09/16 09/09/16 09/10/16 07:39 18:09 03:49 Hgb 10.7 L Hct 33.9 L MCV MCH MCHC RDW [place] % (Auto) [place] # D-Dimer POC ABG pO2 73 L BUN Creatinine Glucose POC Glucose 106 H Hemoglobin A1c Lactic Acid Lactate Dehydrogenase C-Reactive Protein Albumin 09/10/16 03:49 Hgb Hct MCV MCH MCHC RDW [place] % (Auto) [place] # D-Dimer POC ABG pO2 BUN Creatinine Glucose POC Glucose Hemoglobin A1c Lactic Acid Lactate Dehydrogenase 208 H C-Reactive Protein Albumin CT scan - chest: image reviewed
[2016-09-10 12:42] LABS: INR 1.25 (0.87-1.13)
--- NOTE | 2016-09-10 13:42 | Progress Note ---
Assessment and Plan Assessment and plan: --Lung mass, possible metastatic malignancy CT-guided thracentesis and biopsy today Unable to obtain CT chest with contrast in view of iodine allergy --Left lung atelectasis, questionable pneumonia Left lung mass, continue current empiric antibiotics --Elevated d-dimer's, negative for PE --Atrial flutter with rapid ventricular rate. Rate Controlled on oral Cardizem, Anticoagulation with heparin drip Heparin held for procedure, Cardiology following, --Type 2 diabetes mellitus, on oral hypoglycemics Moderate control, Accu-Chek sliding scale coverage and ADA diet, and oral meds Hemoglobin A1c 6.6 --Elevated lactic acid, rule out sepsis Resolved, normal levels --Dyslipidemia; Continue current lipid-lowering medications --History of BPH, stable on Flomax --DVT prophylaxis, patient is already on heparin drip --CODE STATUS; full code Consults and recommendations noted and appreciated Patient can be transferred out of ICU to telemetric floor I discussed the lung findings on CT with the patient, discussed with patient the plan of care Answered all his questions Critical care time 31 minutes History Interval history: Patient seen and evaluated medical records reviewed Patient's CT scan is consistent with lung mass possible metastatic malignancy Patient is scheduled for thoracentesis today, and later needle biopsy Patient feels anxious about this new findings, denies chest pain or shortness of breath Alert awake oriented 3 not in acute distress Hospitalist Physical - Constitutional Vitals: Temp Pulse Resp BP Pulse Ox 97.9 F 84 23 136/55 87 09/10/16 12:00 09/10/16 13:00 09/10/16 13:00 09/10/16 13:00 09/10/16 13:00 General appearance: Present: no acute distress, well-nourished, other (anxious ) - EENT Eyes: Present: PERRL, EOM intact - Neck Neck: Present: supple, normal ROM - Respiratory Respiratory effort: normal Respiratory: bilateral: diminished, rhonchi (left more than right) - Cardiovascular Rhythm: irregularly irregular Heart Sounds: Present: S1 & S2 - Extremities Extremities: no ischemia, pulses intact, pulses symmetrical Peripheral Pulses: within normal limits - Abdominal General gastrointestinal: soft, non-tender, non-distended, normal bowel sounds - Integumentary Integumentary: Present: clear, warm - Psychiatric Psychiatric: appropriate mood/affect, cooperative - Neurologic Neurologic: CNII-XII intact, moves all extremities Results - Labs CBC & Chem 7: 09/10/16 03:49 09/09/16 03:59 Labs: Laboratory Last Values WBC 10.1 K/mm3 (4.5-11.0) 09/08/16 04:51 RBC 4.73 M/mm3 (3.65-5.03) 09/08/16 04:51 Hgb 10.7 gm/dl (11.8-15.2) L 09/10/16 03:49 Hct 33.9 % (35.5-45.6) L 09/10/16 03:49 MCV 70 fl (84-94) L 09/08/16 04:51 MCH 22 pg (28-32) L 09/08/16 04:51 MCHC 31 % (32-34) L 09/08/16 04:51 RDW 15.8 % (13.2-15.2) H 09/08/16 04:51 Plt Count 276 K/mm3 (140-440) 09/10/16 03:49 Lymph % (Auto) 18.1 % (13.4-35.0) 09/08/16 04:51 [place] % (Auto) 11.2 % (0.0-7.3) H 09/08/16 04:51 Eos % (Auto) 1.0 % (0.0-4.3) 09/08/16 04:51 Baso % (Auto) 0.7 % (0.0-1.8) 09/08/16 04:51 Lymph # 1.8 K/mm3 (1.2-5.4) 09/08/16 04:51 [place] # 1.1 K/mm3 (0.0-0.8) H 09/08/16 04:51 Eos # 0.1 K/mm3 (0.0-0.4) 09/08/16 04:51 Baso # 0.1 K/mm3 (0.0-0.1) 09/08/16 04:51 Seg Neutrophils % 69.0 % (40.0-70.0) 09/08/16 04:51 Seg Neutrophils # 6.9 K/mm3 (1.8-7.7) 09/08/16 04:51 PT 15.6 Sec. (12.2-14.9) H 09/10/16 12:14 INR 1.25 (0.87-1.13) H 09/10/16 12:14 APTT 32.9 Sec. (24.2-36.6) 09/07/16 17:50 D-Dimer 741.42 ng/mlDDU (0-234) H 09/08/16 13:14 Heparin Anti-Xa Level 0.35 U.I./ml (0.3-0.7) 09/09/16 20:27 POC ABG pH 7.412 (7.35-7.45) 09/09/16 18:09 POC ABG pCO2 42.1 (35-45) 09/09/16 18:09 POC ABG pO2 73 (80-105) L 09/09/16 18:09 POC ABG HCO3 26.8 09/09/16 18:09 POC ABG Total CO2 28 09/09/16 18:09 POC ABG O2 Sat 95 09/09/16 18:09 POC ABG Base Excess 2 09/09/16 18:09 VBG pH 7.369 (7.320-7.420) 09/07/16 17:50 FiO2 28 % 09/09/16 18:09 Sodium 138 mmol/L (137-145) 09/09/16 03:59 Potassium 4.3 mmol/L (3.6-5.0) 09/09/16 03:59 Chloride 99.6 mmol/L (98-107) 09/09/16 03:59 Carbon Dioxide 27 mmol/L (22-30) 09/09/16 03:59 Anion Gap 16 mmol/L 09/09/16 03:59 BUN 6 mg/dL (9-20) L 09/09/16 03:59 Creatinine 0.7 mg/dL (0.8-1.5) L 09/09/16 03:59 Estimated GFR > 60 ml/min 09/09/16 03:59 BUN/Creatinine Ratio 8.57 % 09/09/16 03:59 Glucose 99 mg/dL (75-100) 09/09/16 03:59 POC Glucose 100 (70-105) 09/09/16 21:39 Hemoglobin A1c 6.6 % (4-6) H 09/08/16 04:51 Lactic Acid 1.2 mmol/L (0.7-2.0) 09/09/16 03:59 Calcium 9.1 mg/dL (8.4-10.2) 09/09/16 03:59 Magnesium 1.8 mg/dL (1.7-2.3) 09/09/16 03:59 Total Bilirubin 0.4 mg/dL (0.1-1.2) 09/08/16 04:51 AST 16 units/L (5-40) 09/08/16 04:51 ALT 20 units/L (7-56) 09/08/16 04:51 Alkaline Phosphatase 82 units/L (35-129) 09/08/16 04:51 Lactate Dehydrogenase 208 units/L (91-180) H 09/10/16 03:49 Total Creatine Kinase 34 units/L (55-170) L 09/07/16 18:06 Troponin T < 0.010 ng/mL (0.00-0.029) 09/07/16 17:50 C-Reactive Protein 5.70 mg/dL (0.00-1.30) H 09/08/16 13:14 NT-Pro-B Natriuret Pep 547.2 pg/mL (0-900) 09/07/16 17:50 Total Protein 6.8 g/dL (6.3-8.2) 09/09/16 21:30 Albumin 2.9 g/dL (3.9-5) L 09/08/16 04:51 Albumin/Globulin Ratio 0.7 % 09/08/16 04:51 TSH 0.982 mlU/mL (0.270-4.200) 09/07/16 18:06 Free T4 1.12 ng/dL (0.76-1.46) 09/07/16 17:50 Ketones mmol/L (-0.28) 09/07/16 18:06
[2016-09-10] MEDS ORDERED: HEPARIN 10,000 UNITS/10 ML ONE (16:31)
[2016-09-10] MEDS ORDERED: HEPARIN 10,000 UNITS/10 ML IV ONE (16:42)
[2016-09-10] MEDS: ZOCOR PO SCH (22:03)
[2016-09-11 06:45] LABS: Basophils % (Auto) 0.8 % (0.0-1.8); Eosinophils % (Auto) 0.8 % (0.0-4.3); Hematocrit 34.7 % (35.5-45.6); Hemoglobin 10.7 gm/dl (11.8-15.2); Mean Corpuscular HGB Conc 31 % (32-34); Platelet Count 308 K/mm3 (140-440); Red Blood Count 5.02 M/mm3 (3.65-5.03); Red Cell Distribution Width 15.8 % (13.2-15.2); White Blood Count 10.3 K/mm3 (4.5-11.0)
[2016-09-11 06:56] LABS: BUN/Creatinine Ratio 7.14; Blood Urea Nitrogen 5 mg/dL (9-20); Calcium 9.3 mg/dL (8.4-10.2); Carbon Dioxide 28 mmol/L (22-30); Glucose 121 mg/dL (75-100)
[2016-09-11 06:57] LABS: Anion Gap 17 mmol/L; Chloride 99.9 mmol/L (98-107); Potassium 3.7 mmol/L (3.6-5.0); Sodium 141 mmol/L (137-145)
[2016-09-11 06:59] LABS: Mean Corpuscular Hemoglobin 21 pg (28-32); Mean Corpuscular Volume 69 fl (84-94)
[2016-09-11] MEDS: GLUCOTROL PO SCH (09:00)
--- NOTE | 2016-09-11 09:17 | Progress Note ---
Assessment and Plan Atrial fib/flutter, uncertain duration rate controlled on oral cardizem Left Pleural effusion Left lung Atelectasis Possible lung mass with mets Diabetes mellitus Hypertension Echo revealing LVEF 45-50% Recommendations: Continue current management Subjective Date of service: 09/11/16 Principal diagnosis: Atrial Fib with RVR; Acute Hypoxemic Resp Failure Interval history: No interval changes Objective Vital Signs Temp Pulse Pulse Pulse Pulse Resp Resp 09/11/16 08:00 97.8 F 78 20 09/11/16 07:56 09/11/16 04:00 97.9 F 84 18 09/11/16 00:00 98.1 F 70 18 09/10/16 22:00 104 H 20 09/10/16 21:13 09/10/16 20:28 18 09/10/16 20:00 97.7 F 104 H 18 09/10/16 19:49 104 H 09/10/16 17:00 103 H 19 09/10/16 16:30 85 26 H 09/10/16 16:00 97.3 F L 103 H 26 H 09/10/16 15:30 95 H 23 09/10/16 15:00 104 H 29 H 09/10/16 14:30 100 H 27 H 09/10/16 14:00 85 21 09/10/16 13:30 115 H 19 09/10/16 13:00 84 23 09/10/16 12:55 09/10/16 12:31 84 25 H 09/10/16 12:00 97.9 F 95 H 21 09/10/16 11:31 94 H 16 09/10/16 11:00 91 H 19 09/10/16 10:31 79 13 09/10/16 10:00 77 19 09/10/16 09:45 90 09/10/16 09:42 89 09/10/16 09:31 89 24 BP BP Pulse Ox 09/11/16 08:00 118/73 100 09/11/16 07:56 98 09/11/16 04:00 146/81 98 09/11/16 00:00 128/81 98 09/10/16 22:00 09/10/16 21:13 97 09/10/16 20:28 09/10/16 20:00 139/80 97 09/10/16 19:49 09/10/16 17:00 120/82 98 09/10/16 16:30 120/82 100 09/10/16 16:00 130/80 99 09/10/16 15:30 130/80 99 09/10/16 15:00 130/80 90 09/10/16 14:30 133/53 99 09/10/16 14:00 142/89 100 09/10/16 13:30 142/89 99 09/10/16 13:00 136/55 87 09/10/16 12:55 94 09/10/16 12:31 142/89 97 09/10/16 12:00 142/89 97 09/10/16 11:31 132/85 99 09/10/16 11:00 132/85 97 09/10/16 10:31 132/79 97 09/10/16 10:00 136/80 98 09/10/16 09:45 132/79 09/10/16 09:42 132/79 09/10/16 09:31 137/78 99 - Physical Examination General: No Apparent Distress HEENT: Positive: PERRL Neck: Positive: trachea midline Cardiac: Positive: irregularly irregular Lungs: Positive: Decreased Breath Sounds Neuro: Positive: Grossly Intact - Labs and Meds Coagulation 09/10/16 Range/Units 12:14 PT 15.6 H (12.2-14.9) Sec. INR 1.25 H (0.87-1.13) CBC 09/11/16 Range/Units 05:47 WBC 10.3 (4.5-11.0) K/mm3 RBC 5.02 (3.65-5.03) M/mm3 Hgb 10.7 L (11.8-15.2) gm/dl Hct 34.7 L (35.5-45.6) % Plt Count 308 (140-440) K/mm3 Lymph # 1.1 L (1.2-5.4) K/mm3 [place] # 1.0 H (0.0-0.8) K/mm3 Eos # 0.1 (0.0-0.4) K/mm3 Baso # 0.1 (0.0-0.1) K/mm3 Comprehensive Metabolic Panel 09/11/16 Range/Units 05:47 Sodium 141 (137-145) mmol/L Potassium 3.7 (3.6-5.0) mmol/L Chloride 99.9 (98-107) mmol/L Carbon Dioxide 28 (22-30) mmol/L BUN 5 L (9-20) mg/dL Creatinine 0.7 L (0.8-1.5) mg/dL Glucose 121 H (75-100) mg/dL Calcium 9.3 (8.4-10.2) mg/dL - Imaging and Cardiology EKG: report reviewed (Afib with rvr)
[2016-09-11] MEDS: PEPCID PO SCH (11:00)
[2016-09-11] MEDS: FLOMAX PO SCH (11:00)
[2016-09-11] MEDS: LEVAQUIN PO SCH (11:00)
[2016-09-11] MEDS: CARDIZEM CD PO SCH (11:00)
[2016-09-11] MEDS: COZAAR PO SCH (11:00)
--- NOTE | 2016-09-11 11:20 | Progress Note ---
Assessment and Plan - Patient Problems (1) Acute hypoxemic respiratory failure Current Visit: Yes Status: Acute (2) Abnormal CXR (chest x-ray) Current Visit: Yes Status: Acute (3) Obesity Current Visit: Yes Status: Acute Qualifiers: Obesity type: O Obesity severity: O (4) Atrial flutter with rapid ventricular response Current Visit: Yes Status: Acute (5) HTN (hypertension) Current Visit: Yes Status: Chronic Qualifiers: Hypertension type: essential hypertension Qualified Code(s): I10 - Essential (primary) hypertension (6) Discharge planning issues Current Visit: Yes Status: Acute Subjective Date of service: 09/11/16 Principal diagnosis: Atrial Fib with RVR; Acute Hypoxemic Resp Failure Interval history: Seen and examined at bedside; 24 hour events reviewed; nursing and respiratory care staff consulted; no adverse overnight events reported to me; Objective Vital Signs - 12hr 09/11/16 09/11/16 09/11/16 00:00 04:00 07:56 Temperature 98.1 F 97.9 F Pulse Rate [ Right Dorsalis Pedis] Pulse Rate [ 70 84 Right Radial] Respiratory 18 18 Rate Blood Pressure 128/81 146/81 [Right Arm] O2 Sat by Pulse 98 98 98 Oximetry 09/11/16 08:00 Temperature 97.8 F Pulse Rate [ 78 Right Dorsalis Pedis] Pulse Rate [ Right Radial] Respiratory 20 Rate Blood Pressure 118/73 [Right Arm] O2 Sat by Pulse 100 Oximetry Constitutional: no acute distress, alert Eyes: non-icteric ENT: oropharynx moist Neck: supple, no lymphadenopathy Effort: normal Ascultation: Left: diminished breath sounds, Bilateral: rhonchi (posterior bases ) Cardiovascular: irregular rhythm Gastrointestinal: normoactive bowel sounds, soft, non-tender, non-distended Integumentary: normal Extremities: no cyanosis, no edema, pulses normal, no ischemia or petechiae Neurologic: normal mental status, non-focal exam, pupils equal and round, motor strength normal and Psychiatric: mood appropriate, affect normal CBC and BMP: 09/11/16 05:47 09/11/16 05:47 ABG, PT/INR, D-dimer: ABG POC ABG pH 7.412 (7.35-7.45) 09/09/16 18:09 POC ABG pCO2 42.1 (35-45) 09/09/16 18:09 POC ABG pO2 73 (80-105) L 09/09/16 18:09 POC ABG HCO3 26.8 09/09/16 18:09 POC ABG Total CO2 28 09/09/16 18:09 POC ABG O2 Sat 95 09/09/16 18:09 PT/INR, D-dimer PT 15.6 Sec. (12.2-14.9) H 09/10/16 12:14 INR 1.25 (0.87-1.13) H 09/10/16 12:14 D-Dimer 741.42 ng/mlDDU (0-234) H 09/08/16 13:14 Abnormal lab findings: Abnormal Labs 09/07/16 09/07/16 09/08/16 22:28 23:36 04:51 Hgb 10.3 L Hct 33.2 L MCV 70 L MCH 22 L MCHC 31 L RDW 15.8 H Lymph % (Auto) [place] % (Auto) 11.2 H Lymph # [place] # 1.1 H Seg Neutrophils % Seg Neutrophils # PT INR D-Dimer Heparin Anti-Xa Level POC ABG pO2 BUN Creatinine Glucose POC Glucose 121 H 119 H Hemoglobin A1c Lactic Acid Lactate Dehydrogenase C-Reactive Protein Albumin 09/08/16 09/08/16 09/08/16 04:51 04:51 07:42 Hgb Hct MCV MCH MCHC RDW Lymph % (Auto) [place] % (Auto) Lymph # [place] # Seg Neutrophils % Seg Neutrophils # PT INR D-Dimer Heparin Anti-Xa Level POC ABG pO2 BUN 7 L Creatinine Glucose 133 H POC Glucose 118 H Hemoglobin A1c 6.6 H Lactic Acid Lactate Dehydrogenase C-Reactive Protein Albumin 2.9 L 09/08/16 09/08/16 09/08/16 13:14 13:14 13:14 Hgb Hct MCV MCH MCHC RDW Lymph % (Auto) [place] % (Auto) Lymph # [place] # Seg Neutrophils % Seg Neutrophils # PT INR D-Dimer 741.42 H Heparin Anti-Xa Level POC ABG pO2 BUN Creatinine Glucose POC Glucose Hemoglobin A1c Lactic Acid 2.5 H* Lactate Dehydrogenase C-Reactive Protein 5.70 H Albumin 09/08/16 09/08/16 09/09/16 15:50 21:42 03:59 Hgb Hct MCV MCH MCHC RDW Lymph % (Auto) [place] % (Auto) Lymph # [place] # Seg Neutrophils % Seg Neutrophils # PT INR D-Dimer Heparin Anti-Xa Level POC ABG pO2 BUN 6 L Creatinine 0.7 L Glucose POC Glucose 69 L 69 L Hemoglobin A1c Lactic Acid Lactate Dehydrogenase C-Reactive Protein Albumin 09/09/16 09/09/16 09/10/16 07:39 18:09 03:49 Hgb 10.7 L Hct 33.9 L MCV MCH MCHC RDW Lymph % (Auto) [place] % (Auto) Lymph # [place] # Seg Neutrophils % Seg Neutrophils # PT INR D-Dimer Heparin Anti-Xa Level POC ABG pO2 73 L BUN Creatinine Glucose POC Glucose 106 H Hemoglobin A1c Lactic Acid Lactate Dehydrogenase C-Reactive Protein Albumin 09/10/16 09/10/16 09/10/16 03:49 08:06 11:02 Hgb Hct MCV MCH MCHC RDW Lymph % (Auto) [place] % (Auto) Lymph # [place] # Seg Neutrophils % Seg Neutrophils # PT INR D-Dimer Heparin Anti-Xa Level POC ABG pO2 BUN Creatinine Glucose POC Glucose 123 H 121 H Hemoglobin A1c Lactic Acid Lactate Dehydrogenase 208 H C-Reactive Protein Albumin 09/10/16 09/10/16 09/10/16 12:14 15:52 21:11 Hgb Hct MCV MCH MCHC RDW Lymph % (Auto) [place] % (Auto) Lymph # [place] # Seg Neutrophils % Seg Neutrophils # PT 15.6 H INR 1.25 H D-Dimer Heparin Anti-Xa Level POC ABG pO2 BUN Creatinine Glucose POC Glucose 162 H 156 H Hemoglobin A1c Lactic Acid Lactate Dehydrogenase C-Reactive Protein Albumin 09/10/16 09/10/16 09/11/16 22:58 23:47 05:47 Hgb 10.7 L Hct 34.7 L MCV 69 L MCH 21 L MCHC 31 L RDW 15.8 H Lymph % (Auto) 10.9 L [place] % (Auto) 9.4 H Lymph # 1.1 L [place] # 1.0 H Seg Neutrophils % 78.1 H Seg Neutrophils # 8.1 H PT INR D-Dimer Heparin Anti-Xa Level 0.25 L POC ABG pO2 BUN Creatinine Glucose POC Glucose 141 H Hemoglobin A1c Lactic Acid Lactate Dehydrogenase C-Reactive Protein Albumin 09/11/16 09/11/16 05:47 05:47 Hgb Hct MCV MCH MCHC RDW Lymph % (Auto) [place] % (Auto) Lymph # [place] # Seg Neutrophils % Seg Neutrophils # PT INR D-Dimer Heparin Anti-Xa Level 0.16 L POC ABG pO2 BUN 5 L Creatinine 0.7 L Glucose 121 H POC Glucose Hemoglobin A1c Lactic Acid Lactate Dehydrogenase C-Reactive Protein Albumin
[2016-09-11] MEDS: HEPARIN/ 0.45% NACL-25,000 UNIT/500 ML 25,000 UNIT/500 ML BAG IV SCH (14:00)
--- NOTE | 2016-09-11 15:26 | Progress Note ---
Assessment and Plan Assessment and plan: --Lung mass, possible metastatic malignancy CT-guided thracentesis and biopsy tomorrow Unable to obtain CT chest with contrast in view of iodine allergy --Left lung atelectasis, questionable pneumonia Left lung mass, continue current empiric antibiotics --Elevated d-dimer's, negative for PE --Atrial flutter with rapid ventricular rate. Rate Controlled on oral Cardizem, Anticoagulation with heparin drip Cardiology following, --Type 2 diabetes mellitus, on oral hypoglycemics Moderate control, Accu-Chek sliding scale coverage and ADA diet, and oral meds Hemoglobin A1c 6.6 --Elevated lactic acid, rule out sepsis Resolved, normal levels --Dyslipidemia; Continue current lipid-lowering medications --History of BPH, stable on Flomax --DVT prophylaxis, patient is already on heparin drip --CODE STATUS; full code Consults and recommendations noted and appreciated Plan of care discussed with the patient History Interval history: Patient seen and evaluated medical records reviewed Patient is scheduled for thoracentesis and CT-guided biopsy tomorrow Patient feels better denies any chest pain shortness of breath Alert awake oriented 3 not in acute distress Hospitalist Physical - Constitutional Vitals: Temp Pulse Resp BP Pulse Ox 97.4 F L 60 20 161/78 97 09/11/16 12:00 09/11/16 12:00 09/11/16 12:00 09/11/16 12:00 09/11/16 12:00 General appearance: Present: no acute distress, well-nourished, other (anxious ) - EENT Eyes: Present: PERRL, EOM intact - Neck Neck: Present: supple, normal ROM - Respiratory Respiratory effort: normal Respiratory: bilateral: diminished, rhonchi - Cardiovascular Rhythm: irregularly irregular Heart Sounds: Present: S1 & S2 - Extremities Extremities: no ischemia, pulses intact, pulses symmetrical Peripheral Pulses: within normal limits - Abdominal General gastrointestinal: soft, non-tender, non-distended, normal bowel sounds - Integumentary Integumentary: Present: clear, warm - Psychiatric Psychiatric: appropriate mood/affect, cooperative - Neurologic Neurologic: CNII-XII intact, moves all extremities Results - Labs CBC & Chem 7: 09/11/16 05:47 09/11/16 05:47 Labs: Laboratory Last Values WBC 10.3 K/mm3 (4.5-11.0) 09/11/16 05:47 RBC 5.02 M/mm3 (3.65-5.03) 09/11/16 05:47 Hgb 10.7 gm/dl (11.8-15.2) L 09/11/16 05:47 Hct 34.7 % (35.5-45.6) L 09/11/16 05:47 MCV 69 fl (84-94) L 09/11/16 05:47 MCH 21 pg (28-32) L 09/11/16 05:47 MCHC 31 % (32-34) L 09/11/16 05:47 RDW 15.8 % (13.2-15.2) H 09/11/16 05:47 Plt Count 308 K/mm3 (140-440) 09/11/16 05:47 Lymph % (Auto) 10.9 % (13.4-35.0) L 09/11/16 05:47 [place] % (Auto) 9.4 % (0.0-7.3) H 09/11/16 05:47 Eos % (Auto) 0.8 % (0.0-4.3) 09/11/16 05:47 Baso % (Auto) 0.8 % (0.0-1.8) 09/11/16 05:47 Lymph # 1.1 K/mm3 (1.2-5.4) L 09/11/16 05:47 [place] # 1.0 K/mm3 (0.0-0.8) H 09/11/16 05:47 Eos # 0.1 K/mm3 (0.0-0.4) 09/11/16 05:47 Baso # 0.1 K/mm3 (0.0-0.1) 09/11/16 05:47 Seg Neutrophils % 78.1 % (40.0-70.0) H 09/11/16 05:47 Seg Neutrophils # 8.1 K/mm3 (1.8-7.7) H 09/11/16 05:47 PT 15.6 Sec. (12.2-14.9) H 09/10/16 12:14 INR 1.25 (0.87-1.13) H 09/10/16 12:14 APTT 32.9 Sec. (24.2-36.6) 09/07/16 17:50 D-Dimer 741.42 ng/mlDDU (0-234) H 09/08/16 13:14 Heparin Anti-Xa Level < 0.10 U.I./ml (0.3-0.7) L 09/11/16 13:46 POC ABG pH 7.412 (7.35-7.45) 09/09/16 18:09 POC ABG pCO2 42.1 (35-45) 09/09/16 18:09 POC ABG pO2 73 (80-105) L 09/09/16 18:09 POC ABG HCO3 26.8 09/09/16 18:09 POC ABG Total CO2 28 09/09/16 18:09 POC ABG O2 Sat 95 09/09/16 18:09 POC ABG Base Excess 2 09/09/16 18:09 VBG pH 7.369 (7.320-7.420) 09/07/16 17:50 FiO2 28 % 09/09/16 18:09 Sodium 141 mmol/L (137-145) 09/11/16 05:47 Potassium 3.7 mmol/L (3.6-5.0) 09/11/16 05:47 Chloride 99.9 mmol/L (98-107) 09/11/16 05:47 Carbon Dioxide 28 mmol/L (22-30) 09/11/16 05:47 Anion Gap 17 mmol/L 09/11/16 05:47 BUN 5 mg/dL (9-20) L 09/11/16 05:47 Creatinine 0.7 mg/dL (0.8-1.5) L 09/11/16 05:47 Estimated GFR > 60 ml/min 09/11/16 05:47 BUN/Creatinine Ratio 7.14 % 09/11/16 05:47 Glucose 121 mg/dL (75-100) H 09/11/16 05:47 POC Glucose 141 (70-105) H 09/10/16 23:47 Hemoglobin A1c 6.6 % (4-6) H 09/08/16 04:51 Lactic Acid 1.2 mmol/L (0.7-2.0) 09/09/16 03:59 Calcium 9.3 mg/dL (8.4-10.2) 09/11/16 05:47 Magnesium 1.8 mg/dL (1.7-2.3) 09/09/16 03:59 Total Bilirubin 0.4 mg/dL (0.1-1.2) 09/08/16 04:51 AST 16 units/L (5-40) 09/08/16 04:51 ALT 20 units/L (7-56) 09/08/16 04:51 Alkaline Phosphatase 82 units/L (35-129) 09/08/16 04:51 Lactate Dehydrogenase 208 units/L (91-180) H 09/10/16 03:49 Total Creatine Kinase 34 units/L (55-170) L 09/07/16 18:06 Troponin T < 0.010 ng/mL (0.00-0.029) 09/07/16 17:50 C-Reactive Protein 5.70 mg/dL (0.00-1.30) H 09/08/16 13:14 NT-Pro-B Natriuret Pep 547.2 pg/mL (0-900) 09/07/16 17:50 Total Protein 6.8 g/dL (6.3-8.2) 09/09/16 21:30 Albumin 2.9 g/dL (3.9-5) L 09/08/16 04:51 Albumin/Globulin Ratio 0.7 % 09/08/16 04:51 TSH 0.982 mlU/mL (0.270-4.200) 09/07/16 18:06 Free T4 1.12 ng/dL (0.76-1.46) 09/07/16 17:50 Ketones mmol/L (-0.28) 09/07/16 18:06
[2016-09-11] MEDS: ZOCOR PO SCH ×2 (22:05→22:06)
[2016-09-12 07:53] LABS: Hemoglobin 12.5 gm/dl (11.8-15.2)
[2016-09-12 07:58] LABS: Hematocrit 41.9 % (35.5-45.6)
[2016-09-12] MEDS: GLUCOTROL PO SCH (08:00)
--- NOTE | 2016-09-12 09:03 | Progress Note ---
Assessment and Plan Atrial fib/flutter, uncertain duration rate controlled on oral cardizem Left Pleural effusion Left lung Atelectasis Possible lung mass with mets Diabetes mellitus Hypertension Echo revealing LVEF 45-50% Recommendations: Continue current management Resume anticoagulation after CT guided biopsy Subjective Date of service: 09/12/16 Principal diagnosis: Atrial Fib with RVR; Acute Hypoxemic Resp Failure Interval history: Patient is doing well Heparin is off in anticipation of CT guided biopsy of left lung mass Objective Vital Signs Temp Pulse Pulse Pulse Pulse Resp BP 09/12/16 08:05 99 H 99 H 09/12/16 07:30 98.4 F 92 H 20 09/12/16 04:00 98.5 F 104 H 18 09/12/16 00:00 98.4 F 107 H 18 09/11/16 22:00 107 H 09/11/16 20:00 98.8 F 55 L 18 09/11/16 16:55 98.5 F 98 H 18 09/11/16 12:00 97.4 F L 60 20 09/11/16 11:00 78 118/73 09/11/16 10:00 98 H 16 BP Pulse Ox 09/12/16 08:05 09/12/16 07:30 141/80 99 09/12/16 04:00 140/84 97 09/12/16 00:00 125/79 98 09/11/16 22:00 99 09/11/16 20:00 121/77 97 09/11/16 16:55 126/71 97 09/11/16 12:00 161/78 97 09/11/16 11:00 09/11/16 10:00 96 - Physical Examination General: No Apparent Distress HEENT: Positive: PERRL Neck: Positive: trachea midline Cardiac: Positive: irregularly irregular Lungs: Positive: Decreased Breath Sounds Neuro: Positive: Grossly Intact - Labs and Meds CBC 09/12/16 Range/Units 06:18 Hgb 12.5 (11.8-15.2) gm/dl Hct 41.9 D (35.5-45.6) % Plt Count 253 (140-440) K/mm3 - Imaging and Cardiology EKG: report reviewed (Afib with rvr)
[2016-09-12 11:31] LABS: INR 1.17 (0.87-1.13)
[2016-09-12 11:32] LABS: Partial Thromboplastin Time 35.5 Sec. (24.2-36.6)
--- NOTE | 2016-09-12 13:16 | XRay Report ---
AP CHEST : 09/12/16 CLINICAL: Immediately status post right thoracentesis COMPARISON: 09/07/16 FINDINGS: No pneumothorax after left thoracentesis. Continued opacification of the left hemithorax with little change compared to the previous exam. The right lung is normally expanded and clear. The heart is shifted slightly to the right. The heart is normal size. Normal pulmonary vessels. IMPRESSION: No pneumothorax after left thoracentesis. Extensive atelectasis of the left lung.
--- NOTE | 2016-09-12 13:17 | Ultrasound Report ---
ULTRASOUND GUIDED LEFT THORACENTESIS: 09/12/16 09:00:00 CLINICAL: Left pleural effusion. FINDINGS: Ultrasound demonstrated a moderate size left pleural effusion. The procedure was explained to the patient and all questions answered. Informed consent was obtained. Using sterile technique, ultrasound guidance, 1% lidocaine and a 5-[place] Yueh catheter, a left thoracentesis was performed with the patient sitting upright. 370 cc of dark stan fluid was removed. The patient tolerated the procedure well and there were no apparent complications. Post procedure chest x-ray showed no pneumothorax. IMPRESSION: Uncomplicated left thoracentesis.
[2016-09-12 13:19] LABS: Total Protein,Body Fluid 4.6 (15.0-45.0)
--- NOTE | 2016-09-12 13:29 | Progress Note ---
Assessment and Plan - Patient Problems (1) Acute hypoxemic respiratory failure Current Visit: Yes Status: Acute (2) Abnormal CXR (chest x-ray) Current Visit: Yes Status: Acute (3) Obesity Current Visit: Yes Status: Acute Qualifiers: Obesity type: O Obesity severity: O (4) Atrial flutter with rapid ventricular response Current Visit: Yes Status: Acute (5) HTN (hypertension) Current Visit: Yes Status: Chronic Qualifiers: Hypertension type: essential hypertension Qualified Code(s): I10 - Essential (primary) hypertension (6) Discharge planning issues Current Visit: Yes Status: Acute Subjective Date of service: 09/12/16 Principal diagnosis: Atrial Fib with RVR; Acute Hypoxemic Resp Failure Interval history: Seen and examined at bedside; 24 hour events reviewed; nursing and respiratory care staff consulted; no adverse overnight events reported to me; Objective Vital Signs - 12hr 09/12/16 09/12/16 09/12/16 04:00 07:30 08:05 Temperature 98.5 F 98.4 F Pulse Rate 99 H Pulse Rate [ 99 H Apical] Pulse Rate [ 92 H Right Dorsalis Pedis] Pulse Rate [ 104 H Right Radial] Respiratory 18 20 Rate Blood Pressure 140/84 141/80 [Right Arm] O2 Sat by Pulse 97 99 Oximetry Constitutional: no acute distress, alert Eyes: non-icteric ENT: oropharynx moist Neck: supple, no lymphadenopathy Effort: normal Ascultation: Left: diminished breath sounds, Bilateral: rhonchi (posterior bases ) Cardiovascular: irregular rhythm Gastrointestinal: normoactive bowel sounds, soft, non-tender, non-distended Integumentary: normal Extremities: no cyanosis, no edema, pulses normal, no ischemia or petechiae Neurologic: normal mental status, non-focal exam, pupils equal and round, motor strength normal and Psychiatric: mood appropriate, affect normal CBC and BMP: 09/12/16 06:18 09/11/16 05:47 ABG, PT/INR, D-dimer: ABG POC ABG pH 7.412 (7.35-7.45) 09/09/16 18:09 POC ABG pCO2 42.1 (35-45) 09/09/16 18:09 POC ABG pO2 73 (80-105) L 09/09/16 18:09 POC ABG HCO3 26.8 09/09/16 18:09 POC ABG Total CO2 28 09/09/16 18:09 POC ABG O2 Sat 95 09/09/16 18:09 PT/INR, D-dimer PT 14.8 Sec. (12.2-14.9) 09/12/16 10:12 INR 1.17 (0.87-1.13) H 09/12/16 10:12 D-Dimer 741.42 ng/mlDDU (0-234) H 09/08/16 13:14 Abnormal lab findings: Abnormal Labs 09/07/16 09/07/16 09/08/16 22:28 23:36 04:51 Hgb 10.3 L Hct 33.2 L MCV 70 L MCH 22 L MCHC 31 L RDW 15.8 H Lymph % (Auto) [place] % (Auto) 11.2 H Lymph # [place] # 1.1 H Seg Neutrophils % Seg Neutrophils # PT INR D-Dimer Heparin Anti-Xa Level POC ABG pO2 BUN Creatinine Glucose POC Glucose 121 H 119 H Hemoglobin A1c Lactic Acid Lactate Dehydrogenase C-Reactive Protein Albumin Fluid Total Protein 09/08/16 09/08/16 09/08/16 04:51 04:51 07:42 Hgb Hct MCV MCH MCHC RDW Lymph % (Auto) [place] % (Auto) Lymph # [place] # Seg Neutrophils % Seg Neutrophils # PT INR D-Dimer Heparin Anti-Xa Level POC ABG pO2 BUN 7 L Creatinine Glucose 133 H POC Glucose 118 H Hemoglobin A1c 6.6 H Lactic Acid Lactate Dehydrogenase C-Reactive Protein Albumin 2.9 L Fluid Total Protein 09/08/16 09/08/16 09/08/16 13:14 13:14 13:14 Hgb Hct MCV MCH MCHC RDW Lymph % (Auto) [place] % (Auto) Lymph # [place] # Seg Neutrophils % Seg Neutrophils # PT INR D-Dimer 741.42 H Heparin Anti-Xa Level POC ABG pO2 BUN Creatinine Glucose POC Glucose Hemoglobin A1c Lactic Acid 2.5 H* Lactate Dehydrogenase C-Reactive Protein 5.70 H Albumin Fluid Total Protein 09/08/16 09/08/16 09/09/16 15:50 21:42 03:59 Hgb Hct MCV MCH MCHC RDW Lymph % (Auto) [place] % (Auto) Lymph # [place] # Seg Neutrophils % Seg Neutrophils # PT INR D-Dimer Heparin Anti-Xa Level POC ABG pO2 BUN 6 L Creatinine 0.7 L Glucose POC Glucose 69 L 69 L Hemoglobin A1c Lactic Acid Lactate Dehydrogenase C-Reactive Protein Albumin Fluid Total Protein 09/09/16 09/09/16 09/10/16 07:39 18:09 03:49 Hgb 10.7 L Hct 33.9 L MCV MCH MCHC RDW Lymph % (Auto) [place] % (Auto) Lymph # [place] # Seg Neutrophils % Seg Neutrophils # PT INR D-Dimer Heparin Anti-Xa Level POC ABG pO2 73 L BUN Creatinine Glucose POC Glucose 106 H Hemoglobin A1c Lactic Acid Lactate Dehydrogenase C-Reactive Protein Albumin Fluid Total Protein 09/10/16 09/10/16 09/10/16 03:49 08:06 11:02 Hgb Hct MCV MCH MCHC RDW Lymph % (Auto) [place] % (Auto) Lymph # [place] # Seg Neutrophils % Seg Neutrophils # PT INR D-Dimer Heparin Anti-Xa Level POC ABG pO2 BUN Creatinine Glucose POC Glucose 123 H 121 H Hemoglobin A1c Lactic Acid Lactate Dehydrogenase 208 H C-Reactive Protein Albumin Fluid Total Protein 09/10/16 09/10/16 09/10/16 12:14 15:52 21:11 Hgb Hct MCV MCH MCHC RDW Lymph % (Auto) [place] % (Auto) Lymph # [place] # Seg Neutrophils % Seg Neutrophils # PT 15.6 H INR 1.25 H D-Dimer Heparin Anti-Xa Level POC ABG pO2 BUN Creatinine Glucose POC Glucose 162 H 156 H Hemoglobin A1c Lactic Acid Lactate Dehydrogenase C-Reactive Protein Albumin Fluid Total Protein 09/10/16 09/10/16 09/11/16 22:58 23:47 05:47 Hgb 10.7 L Hct 34.7 L MCV 69 L MCH 21 L MCHC 31 L RDW 15.8 H Lymph % (Auto) 10.9 L [place] % (Auto) 9.4 H Lymph # 1.1 L [place] # 1.0 H Seg Neutrophils % 78.1 H Seg Neutrophils # 8.1 H PT INR D-Dimer Heparin Anti-Xa Level 0.25 L POC ABG pO2 BUN Creatinine Glucose POC Glucose 141 H Hemoglobin A1c Lactic Acid Lactate Dehydrogenase C-Reactive Protein Albumin Fluid Total Protein 09/11/16 09/11/16 09/11/16 05:47 05:47 08:31 Hgb Hct MCV MCH MCHC RDW Lymph % (Auto) [place] % (Auto) Lymph # [place] # Seg Neutrophils % Seg Neutrophils # PT INR D-Dimer Heparin Anti-Xa Level 0.16 L POC ABG pO2 BUN 5 L Creatinine 0.7 L Glucose 121 H POC Glucose 111 H Hemoglobin A1c Lactic Acid Lactate Dehydrogenase C-Reactive Protein Albumin Fluid Total Protein 09/11/16 09/11/16 09/11/16 12:33 13:46 16:58 Hgb Hct MCV MCH MCHC RDW Lymph % (Auto) [place] % (Auto) Lymph # [place] # Seg Neutrophils % Seg Neutrophils # PT INR D-Dimer Heparin Anti-Xa Level < 0.10 L POC ABG pO2 BUN Creatinine Glucose POC Glucose 135 H 69 L Hemoglobin A1c Lactic Acid Lactate Dehydrogenase C-Reactive Protein Albumin Fluid Total Protein 09/12/16 09/12/16 10:12 12:46 Hgb Hct MCV MCH MCHC RDW Lymph % (Auto) [place] % (Auto) Lymph # [place] # Seg Neutrophils % Seg Neutrophils # PT INR 1.17 H D-Dimer Heparin Anti-Xa Level POC ABG pO2 BUN Creatinine Glucose POC Glucose Hemoglobin A1c Lactic Acid Lactate Dehydrogenase C-Reactive Protein Albumin Fluid Total Protein 4.6 L
[2016-09-12] MEDS: COZAAR PO SCH (14:15)
[2016-09-12] MEDS: FLOMAX PO SCH (14:15)
[2016-09-12] MEDS: CARDIZEM CD PO SCH (14:15)
[2016-09-12] MEDS: LEVAQUIN PO SCH (14:16)
[2016-09-12] MEDS: PEPCID PO SCH (14:16)
[2016-09-12] MEDS: PERCOCET 5/325 PO PRN ×2 (14:19→22:14)
[2016-09-12] MEDS: HEPARIN/ 0.45% NACL-25,000 UNIT/500 ML 25,000 UNIT/500 ML BAG IV SCH (14:33)
--- NOTE | 2016-09-12 15:49 | Progress Note ---
Assessment and Plan Assessment and plan: --Malignant pleural effusion, status post paracentesis Fluid analysis pending --Lung mass, possible metastatic cancer CT-guided biopsy, continue supportive care Pulmonary following --Left lung atelectasis, questionable pneumonia Left lung mass, continue current empiric antibiotics --Atrial flutter with rapid ventricular rate. Rate Controlled on oral Cardizem, heparin drip was held for the procedure Resume heparin drip per cardiology --Type 2 diabetes mellitus, on oral hypoglycemics Moderate control, Accu-Chek sliding scale coverage and ADA diet, and oral meds Hemoglobin A1c 6.6 --Elevated lactic acid, resolved --Dyslipidemia; Continue current lipid-lowering medications --History of BPH, stable on Flomax --DVT prophylaxis, patient is already on heparin drip --CODE STATUS; full code Follow up pathology report of pleural fluid as well as lung biopsy Consider hematology oncology consultation if needed Plan of care discussed the patient and the family members History Interval history: Sincerely and evaluated in his room this morning medical records reviewed Patient underwent ultrasound-guided thoracentesis today with removal of 3 70 mL of dark stan fluid, sent for histopathology Postprocedure x-ray no pneumothorax Denies shortness of breath or pain Alert awake oriented 3 not in acute distress Hospitalist Physical - Constitutional Vitals: Temp Pulse Resp BP Pulse Ox 97.3 F L 105 H 20 152/61 98 09/12/16 12:00 09/12/16 12:00 09/12/16 12:00 09/12/16 12:00 09/12/16 12:00 General appearance: Present: no acute distress, well-nourished, other (anxious ) - EENT Eyes: Present: PERRL, EOM intact - Neck Neck: Present: supple, normal ROM - Respiratory Respiratory effort: normal Respiratory: bilateral: diminished, rhonchi, negative: rales - Cardiovascular Rhythm: regular Heart Sounds: Present: S1 & S2 - Extremities Extremities: no ischemia, pulses intact, pulses symmetrical Extremity abnormal: edema Peripheral Pulses: within normal limits - Abdominal General gastrointestinal: soft, non-tender, non-distended, normal bowel sounds - Integumentary Integumentary: Present: clear, warm - Psychiatric Psychiatric: appropriate mood/affect, cooperative - Neurologic Neurologic: CNII-XII intact, moves all extremities Results - Labs CBC & Chem 7: 09/12/16 06:18 09/11/16 05:47 Labs: Laboratory Last Values WBC 10.3 K/mm3 (4.5-11.0) 09/11/16 05:47 RBC 5.02 M/mm3 (3.65-5.03) 09/11/16 05:47 Hgb 12.5 gm/dl (11.8-15.2) 09/12/16 06:18 Hct 41.9 % (35.5-45.6) D 09/12/16 06:18 MCV 69 fl (84-94) L 09/11/16 05:47 MCH 21 pg (28-32) L 09/11/16 05:47 MCHC 31 % (32-34) L 09/11/16 05:47 RDW 15.8 % (13.2-15.2) H 09/11/16 05:47 Plt Count 253 K/mm3 (140-440) 09/12/16 06:18 Lymph % (Auto) 10.9 % (13.4-35.0) L 09/11/16 05:47 Josephine % (Auto) 9.4 % (0.0-7.3) H 09/11/16 05:47 Eos % (Auto) 0.8 % (0.0-4.3) 09/11/16 05:47 Baso % (Auto) 0.8 % (0.0-1.8) 09/11/16 05:47 Lymph # 1.1 K/mm3 (1.2-5.4) L 09/11/16 05:47 Josephine # 1.0 K/mm3 (0.0-0.8) H 09/11/16 05:47 Eos # 0.1 K/mm3 (0.0-0.4) 09/11/16 05:47 Baso # 0.1 K/mm3 (0.0-0.1) 09/11/16 05:47 Seg Neutrophils % 78.1 % (40.0-70.0) H 09/11/16 05:47 Seg Neutrophils # 8.1 K/mm3 (1.8-7.7) H 09/11/16 05:47 PT 14.8 Sec. (12.2-14.9) 09/12/16 10:12 INR 1.17 (0.87-1.13) H 09/12/16 10:12 APTT 35.5 Sec. (24.2-36.6) 09/12/16 10:12 D-Dimer 741.42 ng/mlDDU (0-234) H 09/08/16 13:14 Heparin Anti-Xa Level 0.35 U.I./ml (0.3-0.7) 09/11/16 20:42 POC ABG pH 7.412 (7.35-7.45) 09/09/16 18:09 POC ABG pCO2 42.1 (35-45) 09/09/16 18:09 POC ABG pO2 73 (80-105) L 09/09/16 18:09 POC ABG HCO3 26.8 09/09/16 18:09 POC ABG Total CO2 28 09/09/16 18:09 POC ABG O2 Sat 95 09/09/16 18:09 POC ABG Base Excess 2 09/09/16 18:09 VBG pH 7.369 (7.320-7.420) 09/07/16 17:50 FiO2 28 % 09/09/16 18:09 Sodium 141 mmol/L (137-145) 09/11/16 05:47 Potassium 3.7 mmol/L (3.6-5.0) 09/11/16 05:47 Chloride 99.9 mmol/L (98-107) 09/11/16 05:47 Carbon Dioxide 28 mmol/L (22-30) 09/11/16 05:47 Anion Gap 17 mmol/L 09/11/16 05:47 BUN 5 mg/dL (9-20) L 09/11/16 05:47 Creatinine 0.7 mg/dL (0.8-1.5) L 09/11/16 05:47 Estimated GFR > 60 ml/min 09/11/16 05:47 BUN/Creatinine Ratio 7.14 % 09/11/16 05:47 Glucose 121 mg/dL (75-100) H 09/11/16 05:47 POC Glucose 101 (70-105) 09/11/16 20:50 Hemoglobin A1c 6.6 % (4-6) H 09/08/16 04:51 Lactic Acid 1.2 mmol/L (0.7-2.0) 09/09/16 03:59 Calcium 9.3 mg/dL (8.4-10.2) 09/11/16 05:47 Magnesium 1.8 mg/dL (1.7-2.3) 09/09/16 03:59 Total Bilirubin 0.4 mg/dL (0.1-1.2) 09/08/16 04:51 AST 16 units/L (5-40) 09/08/16 04:51 ALT 20 units/L (7-56) 09/08/16 04:51 Alkaline Phosphatase 82 units/L (35-129) 09/08/16 04:51 Lactate Dehydrogenase 208 units/L (91-180) H 09/10/16 03:49 Total Creatine Kinase 34 units/L (55-170) L 09/07/16 18:06 Troponin T < 0.010 ng/mL (0.00-0.029) 09/07/16 17:50 C-Reactive Protein 5.70 mg/dL (0.00-1.30) H 09/08/16 13:14 NT-Pro-B Natriuret Pep 547.2 pg/mL (0-900) 09/07/16 17:50 Total Protein 6.8 g/dL (6.3-8.2) 09/09/16 21:30 Albumin 2.9 g/dL (3.9-5) L 09/08/16 04:51 Albumin/Globulin Ratio 0.7 % 09/08/16 04:51 TSH 0.982 mlU/mL (0.270-4.200) 09/07/16 18:06 Free T4 1.12 ng/dL (0.76-1.46) 09/07/16 17:50 Fluid Total Protein 4.6 (15.0-45.0) L 09/12/16 12:46 Fluid LDH 172 09/12/16 12:46 Ketones mmol/L (-0.28) 09/07/16 18:06
[2016-09-12] MEDS: ZOCOR PO SCH (22:12)
[2016-09-13] MEDS: HEPARIN/ 0.45% NACL-25,000 UNIT/500 ML 25,000 UNIT/500 ML BAG IV SCH (05:14)
[2016-09-13] MEDS: PERCOCET 5/325 PO PRN (05:15)
--- NOTE | 2016-09-13 11:02 | Progress Note ---
<CLARICE MARTIN - Last Filed: 09/13/16 11:01> Assessment and Plan Atrial fib/flutter, uncertain duration rate controlled on oral cardizem Left Pleural effusion Left lung Atelectasis Possible lung mass with mets Diabetes mellitus Hypertension Echo revealing LVEF 45-50% Subjective Date of service: 09/13/16 Principal diagnosis: Atrial Fib with RVR; Acute Hypoxemic Resp Failure Interval history: Patient resting in bed comfortably. No distress noted. Objective Vital Signs Temp Pulse Pulse Pulse Resp BP BP 09/13/16 08:45 97.7 F 86 20 129/61 09/13/16 08:20 09/13/16 05:00 97.9 F 72 22 126/64 09/13/16 00:40 98.7 F 106 H 20 120/86 09/12/16 22:00 103 H 09/12/16 20:25 99.0 F 102 H 20 123/91 09/12/16 16:30 98.5 F 84 18 142/82 09/12/16 12:00 97.3 F L 105 H 20 152/61 Pulse Ox 09/13/16 08:45 97 09/13/16 08:20 95 09/13/16 05:00 97 09/13/16 00:40 98 09/12/16 22:00 98 09/12/16 20:25 99 09/12/16 16:30 98 09/12/16 12:00 98 - Physical Examination General: No Apparent Distress HEENT: Positive: PERRL Neck: Positive: trachea midline Cardiac: Positive: irregularly irregular Lungs: Positive: Decreased Breath Sounds Neuro: Positive: Grossly Intact - Labs and Meds Coagulation 09/12/16 Range/Units 10:12 PT 14.8 (12.2-14.9) Sec. INR 1.17 H (0.87-1.13) APTT 35.5 (24.2-36.6) Sec. - Imaging and Cardiology EKG: report reviewed (Afib with rvr) <SHIV JIM - Last Filed: 09/13/16 13:41> Assessment and Plan - Patient Problems (1) Acute hypoxemic respiratory failure Current Visit: Yes Status: Acute Plan to address problem: Patient's primary presenting she and shortness of breath and respiratory insufficiency due to large left pleural effusion and left lung collapse, due to what appears to be a malignant endobronchial lesion. Continue workup by pulmonary medicine, internal medicine and oncology. (2) Atrial flutter Current Visit: Yes Status: Acute Qualifiers: Atrial flutter type: A Plan to address problem: Patient's atrial flutter is likely a chronic finding in the setting of his pulmonary disease. At this time, will continue rate control with AV travis blocking agents. Recommendations for long-term oral anticoagulation will be deferred until the status of his left lung pathology is optimally worked up and treated. Objective Vital Signs Temp Pulse Pulse Pulse Resp BP BP 09/13/16 08:45 97.7 F 86 20 129/61 09/13/16 08:20 09/13/16 05:00 97.9 F 72 22 126/64 09/13/16 00:40 98.7 F 106 H 20 120/86 09/12/16 22:00 103 H 09/12/16 20:25 99.0 F 102 H 20 123/91 09/12/16 16:30 98.5 F 84 18 142/82 Pulse Ox 09/13/16 08:45 97 09/13/16 08:20 95 09/13/16 05:00 97 09/13/16 00:40 98 09/12/16 22:00 98 09/12/16 20:25 99 09/12/16 16:30 98
--- NOTE | 2016-09-13 11:41 | XRay Report ---
Right wrist 2 views. Findings: There are no fractures or other acute findings. DJD is noted at the first carpometacarpal joint. Impression: No acute findings.
[2016-09-13] MEDS ORDERED: NAPROSYN PO PRN (12:00)
[2016-09-13] MEDS: FLOMAX PO SCH (12:20)
[2016-09-13] MEDS: COZAAR PO SCH (12:20)
[2016-09-13] MEDS: GLUCOTROL PO SCH (12:21)
[2016-09-13] MEDS: PEPCID PO SCH (12:21)
[2016-09-13] MEDS: CARDIZEM CD PO SCH (12:21)
--- NOTE | 2016-09-13 14:10 | Cat Scan Report ---
CT CHEST WITHOUT CONTRAST: HISTORY: Left pulmonary mass. TECHNIQUE: Helical CT with sagittal and coronal reformatted images. FINDINGS: Compared to 09/09/16. A moderate left pleural effusion is again noted and not significantly changed. There is atelectasis of the left upper lobe and large portions of the left lower lobe. There is suggestion of an ill-defined mass in the left suprahilar region measuring up to 8.5 cm in diameter. This appears to occlude the left upper lobe bronchus and invade the mediastinum on the left side. The epicenter of the mass is at the left hilum. The right lung is clear and without focal abnormality. There is borderline to mild cardiomegaly. Small pericardial effusion is identified. Invasion of the pericardium could be considered. The remaining mediastinal structures are within normal limits. No bulky adenopathy is detected. There is moderate thoracic spondylosis. No fracture or bony lesion. IMPRESSION: Left suprahilar mass consistent with neoplasm which is poorly imaged on this noncontrast exam. Please see above. Moderate left pleural effusion, not significantly changed. Large areas of atelectasis throughout the left lung. Borderline to mild cardiomegaly present small pericardial effusion.
[2016-09-13] MEDS ORDERED: VERSED IV ONE (15:13)
[2016-09-13] MEDS ORDERED: SUBLIMAZE ONE (15:13)
[2016-09-13] MEDS ORDERED: VERSED IV NR (16:00)
[2016-09-13] MEDS ORDERED: SUBLIMAZE IV ONE (16:03)
--- NOTE | 2016-09-13 16:45 | Progress Note ---
Assessment and Plan Assessment and plan: --Right wrist pain and swelling Rule out gout, x-ray right wrist, start NSAIDs --Malignant pleural effusion, status post paracentesis Fluid analysis pending --Lung mass, possible metastatic cancer CT-guided biopsy, continue supportive care Pulmonary following, for CT-guided biopsy, IR following --Left lung atelectasis, questionable pneumonia Left lung mass, continue current empiric antibiotics --Atrial flutter with rapid ventricular rate. Rate Controlled on oral Cardizem, heparin drip was held for the procedure Resume heparin drip per cardiology --Type 2 diabetes mellitus, on oral hypoglycemics Moderate control, Accu-Chek sliding scale coverage and ADA diet, and oral meds Hemoglobin A1c 6.6 --Dyslipidemia; Continue current lipid-lowering medications --History of BPH, stable on Flomax --DVT prophylaxis, patient is already on heparin drip --CODE STATUS; full code Follow up pathology report of pleural fluid as well as lung biopsy Consider hematology oncology consultation if needed Plan of care discussed the patient and the family members History Interval history: Patient seen and evaluated in his room this morning medical records reviewed Patient is scheduled for CT-guided biopsy, complains of some wrist pain on the right side Denies Chest pain or shortness of breath Alert awake oriented 3 not in acute distress Vital signs stable Hospitalist Physical - Constitutional Vitals: Temp Pulse Resp BP Pulse Ox 97.9 F 75 20 132/82 97 09/13/16 12:35 09/13/16 16:35 09/13/16 16:35 09/13/16 16:35 09/13/16 16:35 General appearance: Present: no acute distress, well-nourished, other (anxious ) - EENT Eyes: Present: PERRL, EOM intact - Neck Neck: Present: supple, normal ROM - Respiratory Respiratory effort: normal Respiratory: bilateral: diminished, rhonchi - Cardiovascular Rhythm: regular Heart Sounds: Present: S1 & S2 - Extremities Extremities: no ischemia, pulses intact, pulses symmetrical, abnormal (right wrist swelling and pain) Peripheral Pulses: within normal limits - Abdominal General gastrointestinal: soft, non-tender, non-distended, normal bowel sounds - Integumentary Integumentary: Present: clear, warm - Psychiatric Psychiatric: appropriate mood/affect, cooperative - Neurologic Neurologic: CNII-XII intact, moves all extremities Results - Labs CBC & Chem 7: 09/12/16 06:18 09/11/16 05:47 Labs: Laboratory Last Values WBC 10.3 K/mm3 (4.5-11.0) 09/11/16 05:47 RBC 5.02 M/mm3 (3.65-5.03) 09/11/16 05:47 Hgb 12.5 gm/dl (11.8-15.2) 09/12/16 06:18 Hct 41.9 % (35.5-45.6) D 09/12/16 06:18 MCV 69 fl (84-94) L 09/11/16 05:47 MCH 21 pg (28-32) L 09/11/16 05:47 MCHC 31 % (32-34) L 09/11/16 05:47 RDW 15.8 % (13.2-15.2) H 09/11/16 05:47 Plt Count 253 K/mm3 (140-440) 09/12/16 06:18 Lymph % (Auto) 10.9 % (13.4-35.0) L 09/11/16 05:47 Garland % (Auto) 9.4 % (0.0-7.3) H 09/11/16 05:47 Eos % (Auto) 0.8 % (0.0-4.3) 09/11/16 05:47 Baso % (Auto) 0.8 % (0.0-1.8) 09/11/16 05:47 Lymph # 1.1 K/mm3 (1.2-5.4) L 09/11/16 05:47 Garland # 1.0 K/mm3 (0.0-0.8) H 09/11/16 05:47 Eos # 0.1 K/mm3 (0.0-0.4) 09/11/16 05:47 Baso # 0.1 K/mm3 (0.0-0.1) 09/11/16 05:47 Seg Neutrophils % 78.1 % (40.0-70.0) H 09/11/16 05:47 Seg Neutrophils # 8.1 K/mm3 (1.8-7.7) H 09/11/16 05:47 PT 14.8 Sec. (12.2-14.9) 09/12/16 10:12 INR 1.17 (0.87-1.13) H 09/12/16 10:12 APTT 35.5 Sec. (24.2-36.6) 09/12/16 10:12 D-Dimer 741.42 ng/mlDDU (0-234) H 09/08/16 13:14 Heparin Anti-Xa Level 0.47 U.I./ml (0.3-0.7) 09/13/16 10:35 POC ABG pH 7.412 (7.35-7.45) 09/09/16 18:09 POC ABG pCO2 42.1 (35-45) 09/09/16 18:09 POC ABG pO2 73 (80-105) L 09/09/16 18:09 POC ABG HCO3 26.8 09/09/16 18:09 POC ABG Total CO2 28 09/09/16 18:09 POC ABG O2 Sat 95 09/09/16 18:09 POC ABG Base Excess 2 09/09/16 18:09 VBG pH 7.369 (7.320-7.420) 09/07/16 17:50 FiO2 28 % 09/09/16 18:09 Sodium 141 mmol/L (137-145) 09/11/16 05:47 Potassium 3.7 mmol/L (3.6-5.0) 09/11/16 05:47 Chloride 99.9 mmol/L (98-107) 09/11/16 05:47 Carbon Dioxide 28 mmol/L (22-30) 09/11/16 05:47 Anion Gap 17 mmol/L 09/11/16 05:47 BUN 5 mg/dL (9-20) L 09/11/16 05:47 Creatinine 0.7 mg/dL (0.8-1.5) L 09/11/16 05:47 Estimated GFR > 60 ml/min 09/11/16 05:47 BUN/Creatinine Ratio 7.14 % 09/11/16 05:47 Glucose 121 mg/dL (75-100) H 09/11/16 05:47 POC Glucose 142 (70-105) H 09/13/16 12:40 Hemoglobin A1c 6.6 % (4-6) H 09/08/16 04:51 Lactic Acid 1.2 mmol/L (0.7-2.0) 09/09/16 03:59 Calcium 9.3 mg/dL (8.4-10.2) 09/11/16 05:47 Magnesium 1.8 mg/dL (1.7-2.3) 09/09/16 03:59 Total Bilirubin 0.4 mg/dL (0.1-1.2) 09/08/16 04:51 AST 16 units/L (5-40) 09/08/16 04:51 ALT 20 units/L (7-56) 09/08/16 04:51 Alkaline Phosphatase 82 units/L (35-129) 09/08/16 04:51 Lactate Dehydrogenase 208 units/L (91-180) H 09/10/16 03:49 Total Creatine Kinase 34 units/L (55-170) L 09/07/16 18:06 Troponin T < 0.010 ng/mL (0.00-0.029) 09/07/16 17:50 C-Reactive Protein 5.70 mg/dL (0.00-1.30) H 09/08/16 13:14 NT-Pro-B Natriuret Pep 547.2 pg/mL (0-900) 09/07/16 17:50 Total Protein 6.8 g/dL (6.3-8.2) 09/09/16 21:30 Albumin 2.9 g/dL (3.9-5) L 09/08/16 04:51 Albumin/Globulin Ratio 0.7 % 09/08/16 04:51 TSH 0.982 mlU/mL (0.270-4.200) 09/07/16 18:06 Free T4 1.12 ng/dL (0.76-1.46) 09/07/16 17:50 Fluid Total Protein 4.6 (15.0-45.0) L 09/12/16 12:46 Fluid LDH 172 09/12/16 12:46 Ketones mmol/L (-0.28) 09/07/16 18:06
--- NOTE | 2016-09-13 16:51 | Procedure Note ---
Date of procedure: 09/13/16 Pre-op diagnosis: Leftlung mass Post-op diagnosis: same Procedure: Bx lung mass Anesthesia: local Surgeon: KLAUDIA PLAZA Estimated blood loss: none Specimen disposition: to lab Condition: stable Disposition: floor
--- NOTE | 2016-09-13 16:52 | Cat Scan Report ---
CT guided biopsy of left upper lobe mass. Procedure: The patient's skin surface over the left upper thorax was prepped and draped using sterile technique. Local anesthetic was injected into the skin. Using CT guidance, a 19-gauge sheath needle was advanced into the left upper lobe soft tissue density. 2 successive passes were made using a 20-gauge biopsy gun. Intravenous conscious sedation was used, and the patient tolerated the procedure well clinically. Independent cardiorespiratory monitoring was performed by the outpatient procedure nurse for 30 minutes, supervised by me. Postbiopsy CT images demonstrated a very small pneumothorax which will be followed up with a chest x-ray ordered for 2 hours after this procedure. The patient was sent to the floor as an inpatient in satisfactory condition.
--- NOTE | 2016-09-13 17:53 | Event Note ---
Date: 09/13/[address]-guided lung biopsy Tolerated the procedure well, radiology reports a small pneumothorax Closely monitor, follow up chest x-ray after 2 hours for the progression of pneumothorax Patient feels better,sedated ,responds appropriately Denies chest pain or shortness of breath Vital signs reviewed Lungs bilateral air entry reduced L > R Occasional coarse breath sounds bilateral Rest of the physical examination no new changes Closely monitor clinically, follow chest x-ray, transfer to ICU for close observation if there are any acute changes We will sign off to covering hospitalist for close observation and to follow CXR Will notify [facility].
--- NOTE | 2016-09-13 19:02 | Progress Note ---
Assessment and Plan Patient alert, awake, Oriented. No acute respiratory distress.O2 satuaration 93% .No pneumothorax reporyed post percutaneous needle biopsy of lung.Reported lopacification left lower lung as before. - Patient Problems (1) Mass of left lung Current Visit: Yes Status: Acute Plan to address problem: Patient undergone percutaneous needle biopsy of left chest lesion. Results pending. (2) Acute hypoxemic respiratory failure Current Visit: Yes Status: Acute Plan to address problem: O2 supplementation 2 litres. Albuterol/atrovent aerosol treatments q 6 hours. (3) Pleural effusion, left Current Visit: Yes Status: Acute Plan to address problem: S/P left thoracentesis. Pleural fluid Protien 4.6, LDH 172 Pleural fluid is exudate. (4) Atelectasis of left lung Current Visit: Yes Status: Acute Plan to address problem: Albuterol/atrovent aerosol treatments q 6 hours. Incentive spirometry Chest PT. Subjective Date of service: 09/13/16 Principal diagnosis: Atrial Fib with RVR; Acute Hypoxemic Resp Failure Interval history: Patient alert, awake, Oriented. No acute respiratory distress.O2 satuaration 93% .No pneumothorax reporyed post percutaneous needle biopsy of lung.Reported lopacification left lower lung as before. Objective Vital Signs - 12hr 09/13/16 09/13/16 09/13/16 08:20 08:45 12:35 Temperature 97.7 F 97.9 F Pulse Rate [ Intra-Procedure ] Pulse Rate [ 98 H Left Dorsalis Pedis] Pulse Rate [ 86 Left Radial] Pulse Rate [ Post-Procedure] Pulse Rate [Pre -Procedure] Respiratory 20 20 Rate Respiratory Rate [Intra- Procedure] Respiratory Rate [Post- Procedure] Respiratory Rate [Pre- Procedure] Blood Pressure [Intra- Procedure] Blood Pressure 129/61 126/70 [Left Arm] Blood Pressure [Post-Procedure ] Blood Pressure [Pre-Procedure] O2 Sat by Pulse 95 97 98 Oximetry O2 Sat by Pulse Oximetry [ Intra-Procedure ] O2 Sat by Pulse Oximetry [Post -Procedure] O2 Sat by Pulse Oximetry [Pre- Procedure] 09/13/16 09/13/16 09/13/16 15:50 16:10 16:15 Temperature Pulse Rate [ 93 H 80 Intra-Procedure ] Pulse Rate [ Left Dorsalis Pedis] Pulse Rate [ Left Radial] Pulse Rate [ Post-Procedure] Pulse Rate [Pre 97 H -Procedure] Respiratory Rate Respiratory 20 20 Rate [Intra- Procedure] Respiratory Rate [Post- Procedure] Respiratory 20 Rate [Pre- Procedure] Blood Pressure 125/76 130/63 [Intra- Procedure] Blood Pressure [Left Arm] Blood Pressure [Post-Procedure ] Blood Pressure 137/91 [Pre-Procedure] O2 Sat by Pulse Oximetry O2 Sat by Pulse 95 99 Oximetry [ Intra-Procedure ] O2 Sat by Pulse Oximetry [Post -Procedure] O2 Sat by Pulse 96 Oximetry [Pre- Procedure] 09/13/16 09/13/16 09/13/16 16:20 16:25 16:30 Temperature Pulse Rate [ 63 90 Intra-Procedure ] Pulse Rate [ Left Dorsalis Pedis] Pulse Rate [ Left Radial] Pulse Rate [ 91 H Post-Procedure] Pulse Rate [Pre -Procedure] Respiratory Rate Respiratory 20 20 Rate [Intra- Procedure] Respiratory 20 Rate [Post- Procedure] Respiratory Rate [Pre- Procedure] Blood Pressure 119/66 121/67 [Intra- Procedure] Blood Pressure [Left Arm] Blood Pressure 123/56 [Post-Procedure ] Blood Pressure [Pre-Procedure] O2 Sat by Pulse Oximetry O2 Sat by Pulse 98 97 Oximetry [ Intra-Procedure ] O2 Sat by Pulse 97 Oximetry [Post -Procedure] O2 Sat by Pulse Oximetry [Pre- Procedure] 09/13/16 09/13/16 09/13/16 16:35 16:50 17:00 Temperature Pulse Rate [ Intra-Procedure ] Pulse Rate [ Left Dorsalis Pedis] Pulse Rate [ Left Radial] Pulse Rate [ 75 82 84 Post-Procedure] Pulse Rate [Pre -Procedure] Respiratory Rate Respiratory Rate [Intra- Procedure] Respiratory 20 20 20 Rate [Post- Procedure] Respiratory Rate [Pre- Procedure] Blood Pressure [Intra- Procedure] Blood Pressure [Left Arm] Blood Pressure 132/82 116/78 107/79 [Post-Procedure ] Blood Pressure [Pre-Procedure] O2 Sat by Pulse Oximetry O2 Sat by Pulse Oximetry [ Intra-Procedure ] O2 Sat by Pulse 97 98 99 Oximetry [Post -Procedure] O2 Sat by Pulse Oximetry [Pre- Procedure] 09/13/16 17:15 Temperature Pulse Rate [ Intra-Procedure ] Pulse Rate [ Left Dorsalis Pedis] Pulse Rate [ Left Radial] Pulse Rate [ 86 Post-Procedure] Pulse Rate [Pre -Procedure] Respiratory Rate Respiratory Rate [Intra- Procedure] Respiratory 20 Rate [Post- Procedure] Respiratory Rate [Pre- Procedure] Blood Pressure [Intra- Procedure] Blood Pressure [Left Arm] Blood Pressure 123/71 [Post-Procedure ] Blood Pressure [Pre-Procedure] O2 Sat by Pulse Oximetry O2 Sat by Pulse Oximetry [ Intra-Procedure ] O2 Sat by Pulse 99 Oximetry [Post -Procedure] O2 Sat by Pulse Oximetry [Pre- Procedure] Constitutional: no acute distress, alert Eyes: non-icteric ENT: oropharynx moist Neck: supple, no lymphadenopathy Effort: normal Ascultation: Left: diminished breath sounds, Bilateral: rhonchi (posterior bases ) Cardiovascular: irregular rhythm Gastrointestinal: normoactive bowel sounds, soft, non-tender, non-distended Integumentary: normal Extremities: no cyanosis, no edema, pulses normal, no ischemia or petechiae Neurologic: normal mental status, non-focal exam, pupils equal and round, motor strength normal and Psychiatric: mood appropriate, affect normal CBC and BMP: 09/12/16 06:18 09/11/16 05:47 ABG, PT/INR, D-dimer: ABG POC ABG pH 7.412 (7.35-7.45) 09/09/16 18:09 POC ABG pCO2 42.1 (35-45) 09/09/16 18:09 POC ABG pO2 73 (80-105) L 09/09/16 18:09 POC ABG HCO3 26.8 09/09/16 18:09 POC ABG Total CO2 28 09/09/16 18:09 POC ABG O2 Sat 95 09/09/16 18:09 PT/INR, D-dimer PT 14.8 Sec. (12.2-14.9) 09/12/16 10:12 INR 1.17 (0.87-1.13) H 09/12/16 10:12 D-Dimer 741.42 ng/mlDDU (0-234) H 09/08/16 13:14 Abnormal lab findings: Abnormal Labs 09/07/16 09/07/16 09/08/16 22:28 23:36 04:51 Hgb 10.3 L Hct 33.2 L MCV 70 L MCH 22 L MCHC 31 L RDW 15.8 H Lymph % (Auto) [place] % (Auto) 11.2 H Lymph # [place] # 1.1 H Seg Neutrophils % Seg Neutrophils # PT INR D-Dimer Heparin Anti-Xa Level POC ABG pO2 BUN Creatinine Glucose POC Glucose 121 H 119 H Hemoglobin A1c Lactic Acid Lactate Dehydrogenase C-Reactive Protein Albumin Fluid Total Protein 09/08/16 09/08/16 09/08/16 04:51 04:51 07:42 Hgb Hct MCV MCH MCHC RDW Lymph % (Auto) [place] % (Auto) Lymph # [place] # Seg Neutrophils % Seg Neutrophils # PT INR D-Dimer Heparin Anti-Xa Level POC ABG pO2 BUN 7 L Creatinine Glucose 133 H POC Glucose 118 H Hemoglobin A1c 6.6 H Lactic Acid Lactate Dehydrogenase C-Reactive Protein Albumin 2.9 L Fluid Total Protein 09/08/16 09/08/16 09/08/16 13:14 13:14 13:14 Hgb Hct MCV MCH MCHC RDW Lymph % (Auto) [place] % (Auto) Lymph # [place] # Seg Neutrophils % Seg Neutrophils # PT INR D-Dimer 741.42 H Heparin Anti-Xa Level POC ABG pO2 BUN Creatinine Glucose POC Glucose Hemoglobin A1c Lactic Acid 2.5 H* Lactate Dehydrogenase C-Reactive Protein 5.70 H Albumin Fluid Total Protein 09/08/16 09/08/16 09/09/16 15:50 21:42 03:59 Hgb Hct MCV MCH MCHC RDW Lymph % (Auto) [place] % (Auto) Lymph # [place] # Seg Neutrophils % Seg Neutrophils # PT INR D-Dimer Heparin Anti-Xa Level POC ABG pO2 BUN 6 L Creatinine 0.7 L Glucose POC Glucose 69 L 69 L Hemoglobin A1c Lactic Acid Lactate Dehydrogenase C-Reactive Protein Albumin Fluid Total Protein 09/09/16 09/09/16 09/10/16 07:39 18:09 03:49 Hgb 10.7 L Hct 33.9 L MCV MCH MCHC RDW Lymph % (Auto) [place] % (Auto) Lymph # [place] # Seg Neutrophils % Seg Neutrophils # PT INR D-Dimer Heparin Anti-Xa Level POC ABG pO2 73 L BUN Creatinine Glucose POC Glucose 106 H Hemoglobin A1c Lactic Acid Lactate Dehydrogenase C-Reactive Protein Albumin Fluid Total Protein 09/10/16 09/10/16 09/10/16 03:49 08:06 11:02 Hgb Hct MCV MCH MCHC RDW Lymph % (Auto) [place] % (Auto) Lymph # [place] # Seg Neutrophils % Seg Neutrophils # PT INR D-Dimer Heparin Anti-Xa Level POC ABG pO2 BUN Creatinine Glucose POC Glucose 123 H 121 H Hemoglobin A1c Lactic Acid Lactate Dehydrogenase 208 H C-Reactive Protein Albumin Fluid Total Protein 09/10/16 09/10/16 09/10/16 12:14 15:52 21:11 Hgb Hct MCV MCH MCHC RDW Lymph % (Auto) [place] % (Auto) Lymph # [place] # Seg Neutrophils % Seg Neutrophils # PT 15.6 H INR 1.25 H D-Dimer Heparin Anti-Xa Level POC ABG pO2 BUN Creatinine Glucose POC Glucose 162 H 156 H Hemoglobin A1c Lactic Acid Lactate Dehydrogenase C-Reactive Protein Albumin Fluid Total Protein 09/10/16 09/10/16 09/11/16 22:58 23:47 05:47 Hgb 10.7 L Hct 34.7 L MCV 69 L MCH 21 L MCHC 31 L RDW 15.8 H Lymph % (Auto) 10.9 L [place] % (Auto) 9.4 H Lymph # 1.1 L [place] # 1.0 H Seg Neutrophils % 78.1 H Seg Neutrophils # 8.1 H PT INR D-Dimer Heparin Anti-Xa Level 0.25 L POC ABG pO2 BUN Creatinine Glucose POC Glucose 141 H Hemoglobin A1c Lactic Acid Lactate Dehydrogenase C-Reactive Protein Albumin Fluid Total Protein 09/11/16 09/11/16 09/11/16 05:47 05:47 08:31 Hgb Hct MCV MCH MCHC RDW Lymph % (Auto) [place] % (Auto) Lymph # [place] # Seg Neutrophils % Seg Neutrophils # PT INR D-Dimer Heparin Anti-Xa Level 0.16 L POC ABG pO2 BUN 5 L Creatinine 0.7 L Glucose 121 H POC Glucose 111 H Hemoglobin A1c Lactic Acid Lactate Dehydrogenase C-Reactive Protein Albumin Fluid Total Protein 09/11/16 09/11/16 09/11/16 12:33 13:46 16:58 Hgb Hct MCV MCH MCHC RDW Lymph % (Auto) [place] % (Auto) Lymph # [place] # Seg Neutrophils % Seg Neutrophils # PT INR D-Dimer Heparin Anti-Xa Level < 0.10 L POC ABG pO2 BUN Creatinine Glucose POC Glucose 135 H 69 L Hemoglobin A1c Lactic Acid Lactate Dehydrogenase C-Reactive Protein Albumin Fluid Total Protein 09/12/16 09/12/16 09/12/16 07:52 10:12 11:39 Hgb Hct MCV MCH MCHC RDW Lymph % (Auto) [place] % (Auto) Lymph # [place] # Seg Neutrophils % Seg Neutrophils # PT INR 1.17 H D-Dimer Heparin Anti-Xa Level POC ABG pO2 BUN Creatinine Glucose POC Glucose 112 H 110 H Hemoglobin A1c Lactic Acid Lactate Dehydrogenase C-Reactive Protein Albumin Fluid Total Protein 09/12/16 09/12/16 09/12/16 12:46 17:07 22:36 Hgb Hct MCV MCH MCHC RDW Lymph % (Auto) [place] % (Auto) Lymph # [place] # Seg Neutrophils % Seg Neutrophils # PT INR D-Dimer Heparin Anti-Xa Level POC ABG pO2 BUN Creatinine Glucose POC Glucose 115 H 171 H Hemoglobin A1c Lactic Acid Lactate Dehydrogenase C-Reactive Protein Albumin Fluid Total Protein 4.6 L 09/12/16 09/13/16 23:10 12:40 Hgb Hct MCV MCH MCHC RDW Lymph % (Auto) [place] % (Auto) Lymph # [place] # Seg Neutrophils % Seg Neutrophils # PT INR D-Dimer Heparin Anti-Xa Level < 0.10 L POC ABG pO2 BUN Creatinine Glucose POC Glucose 142 H Hemoglobin A1c Lactic Acid Lactate Dehydrogenase C-Reactive Protein Albumin Fluid Total Protein Chest x-ray: report reviewed (No pneumothorax post biopsy. Opacification left lower lung.), image reviewed
--- NOTE | 2016-09-13 19:58 | XRay Report ---
FINAL REPORT PROCEDURE: XR CHEST 1V AP TECHNIQUE: Chest radiograph anteroposterior view. CPT 05096 HISTORY: Post Lung Biopsy COMPARISON: Chest x-ray dated September 12, 2016 FINDINGS: Heart: Possibly enlarged. Mediastinum/Vessels: Normal. Lungs/Pleural space: Left lung is mostly opacified as seen on prior study. No pneumothorax is seen. There elevation of the left hemidiaphragm as seen previously. Bony thorax: No acute osseous abnormality. Life support devices: None. IMPRESSION: Opacification of the left brenda thorax is similar to prior study.
[2016-09-13] MEDS: ZOCOR PO SCH (22:18)
[2016-09-14] MEDS: ATROVENT IH SCH ×4 (01:46→20:19)
[2016-09-14] MEDS: PROVENTIL IH SCH ×4 (01:46→20:19)
[2016-09-14 07:44] LABS: Hematocrit 32.4 % (35.5-45.6); Hemoglobin 10.3 gm/dl (11.8-15.2)
[2016-09-14] MEDS: GLUCOTROL PO SCH (08:50)
[2016-09-14] MEDS: PEPCID PO SCH (10:49)
[2016-09-14] MEDS: CARDIZEM CD PO SCH (10:49)
[2016-09-14] MEDS: COZAAR PO SCH (10:49)
[2016-09-14] MEDS: FLOMAX PO SCH (10:50)
--- NOTE | 2016-09-14 11:26 | Progress Note ---
Assessment and Plan Persistent Atrial fib/flutter, uncertain duration rate controlled on oral cardizem Left Pleural effusion Left lung Atelectasis Possible lung mass with mets Diabetes mellitus Hypertension Echo revealing LVEF 45-50% Recommendations: Continue workup by pulmonary medicine, internal medicine and oncology. Patient's atrial flutter is likely a chronic finding in the setting of his pulmonary disease. We will continue rate control with AV travis blocking agents. Long-term oral anticoagulation will be deferred until the status of his left lung pathology is optimally worked up and treated. Subjective Date of service: 09/14/16 Principal diagnosis: Atrial Fib with RVR; Acute Hypoxemic Resp Failure Interval history: Patient resting in bed comfortably. No distress noted. Objective Vital Signs Temp Pulse Pulse Pulse Pulse Pulse Pulse 09/14/16 07:30 97.9 F 80 09/14/16 04:15 98.0 F 108 H 09/14/16 04:10 09/14/16 02:05 09/14/16 01:51 110 H 09/14/16 00:05 98.6 F 106 H 09/13/16 20:00 97.9 F 106 H 09/13/16 18:25 98.2 F 86 09/13/16 17:15 86 09/13/16 17:00 84 09/13/16 16:50 82 09/13/16 16:35 75 09/13/16 16:30 91 H 09/13/16 16:25 90 09/13/16 16:20 63 09/13/16 16:15 80 09/13/16 16:10 93 H 09/13/16 15:50 09/13/16 12:35 97.9 F 98 H Pulse Resp Resp Resp Resp Resp BP 09/14/16 07:30 20 09/14/16 04:15 20 09/14/16 04:10 09/14/16 02:05 18 09/14/16 01:51 18 09/14/16 00:05 20 09/13/16 20:00 20 09/13/16 18:25 22 09/13/16 17:15 20 09/13/16 17:00 20 09/13/16 16:50 20 09/13/16 16:35 20 09/13/16 16:30 20 09/13/16 16:25 20 121/67 09/13/16 16:20 20 119/66 09/13/16 16:15 20 130/63 09/13/16 16:10 20 125/76 09/13/16 15:50 97 H 20 09/13/16 12:35 20 BP BP BP Pulse Ox Pulse Ox Pulse Ox Pulse Ox 09/14/16 07:30 112/63 99 09/14/16 04:15 99 09/14/16 04:10 116/70 09/14/16 02:05 09/14/16 01:51 09/14/16 00:05 113/77 99 09/13/16 20:00 137/64 93 09/13/16 18:25 125/69 09/13/16 17:15 123/71 99 09/13/16 17:00 107/79 99 09/13/16 16:50 116/78 98 09/13/16 16:35 132/82 97 09/13/16 16:30 123/56 97 09/13/16 16:25 97 09/13/16 16:20 98 09/13/16 16:15 99 09/13/16 16:10 95 09/13/16 15:50 137/91 96 09/13/16 12:35 126/70 98 - Physical Examination General: No Apparent Distress HEENT: Positive: PERRL Neck: Positive: trachea midline Cardiac: Positive: irregularly irregular - Labs and Meds CBC 09/14/16 Range/Units 06:54 Hgb 10.3 L (11.8-15.2) gm/dl Hct 32.4 L D (35.5-45.6) % Plt Count 297 (140-440) K/mm3 - Imaging and Cardiology EKG: report reviewed (Afib with rvr)
--- NOTE | 2016-09-14 13:03 | XRay Report ---
PORTABLE CHEST INDICATION: Pneumothorax. COMPARISON: 6:09 PM yesterday. FINDINGS: Portable, frontal chest radiograph, 12:21 PM, 09/14/2016 demonstrates stable to slight increased hazy opacification of the left hemithorax with small aeration preserved superiorly towards the apex. Left hemidiaphragm may though again be elevated with some subjacent gastric air. Obscured left heart border. Clear right lung. EKG leads. Thoracic spondylosis. CONCLUSION: 1. No significant left pneumothorax appreciated, though left hemithorax opacification may be stable to slightly worse radiographically in this patient with suspected left lung base volume loss, as described. 2. Right lung remains clear. Thank you for the opportunity to participate in this patient's care.
[2016-09-14 15:01] LABS: B-Hydroxybutyrate 0.1 mmol/L (-0.28)
[2016-09-14] MEDS: INDOCIN PO SCH ×2 (17:15→22:54)
--- NOTE | 2016-09-14 19:07 | Progress Note ---
Assessment and Plan Assessment and plan: --Lung mass, possible metastatic cancer CT-guided biopsy, follow histopathology Pulmonary following, --Malignant pleural effusion, status post paracentesis Fluid analysis pending --Left lung atelectasis, questionable pneumonia Left lung mass, continue current empiric antibiotics --Atrial flutter with rapid ventricular rate. Rate Controlled on oral Cardizem, heparin drip was held for the procedure Resume heparin drip per cardiology --Type 2 diabetes mellitus, on oral hypoglycemics Moderate control, Accu-Chek sliding scale coverage and ADA diet, and oral meds Hemoglobin A1c 6.6 --Right wrist pain and swelling Rule out gout, x-ray right wrist, start Indocin --Dyslipidemia; Continue current lipid-lowering medications --History of BPH, stable on Flomax --DVT prophylaxis, patient is already on heparin drip --CODE STATUS; full code History Interval history: Patient feels better no new complaints right wrist pain slightly improved Hospitalist Physical - Constitutional Vitals: Temp Pulse Resp BP Pulse Ox 98.9 F 85 20 132/72 97 09/14/16 16:30 09/14/16 16:30 09/14/16 16:30 09/14/16 16:30 09/14/16 16:30 General appearance: Present: no acute distress, well-nourished, other (anxious ) - EENT Eyes: Present: PERRL, EOM intact - Neck Neck: Present: supple, normal ROM - Respiratory Respiratory effort: normal Respiratory: bilateral: diminished, rhonchi - Cardiovascular Rhythm: regular Heart Sounds: Present: S1 & S2 - Extremities Extremities: no ischemia, pulses intact, pulses symmetrical Peripheral Pulses: within normal limits - Abdominal General gastrointestinal: soft, non-tender, non-distended, normal bowel sounds - Integumentary Integumentary: Present: clear, warm - Psychiatric Psychiatric: appropriate mood/affect, cooperative - Neurologic Neurologic: CNII-XII intact, moves all extremities Results - Labs CBC & Chem 7: 09/14/16 06:54 09/11/16 05:47 Labs: Laboratory Last Values WBC 10.3 K/mm3 (4.5-11.0) 09/11/16 05:47 RBC 5.02 M/mm3 (3.65-5.03) 09/11/16 05:47 Hgb 10.3 gm/dl (11.8-15.2) L 09/14/16 06:54 Hct 32.4 % (35.5-45.6) L D 09/14/16 06:54 MCV 69 fl (84-94) L 09/11/16 05:47 MCH 21 pg (28-32) L 09/11/16 05:47 MCHC 31 % (32-34) L 09/11/16 05:47 RDW 15.8 % (13.2-15.2) H 09/11/16 05:47 Plt Count 297 K/mm3 (140-440) 09/14/16 06:54 Lymph % (Auto) 10.9 % (13.4-35.0) L 09/11/16 05:47 [place] % (Auto) 9.4 % (0.0-7.3) H 09/11/16 05:47 Eos % (Auto) 0.8 % (0.0-4.3) 09/11/16 05:47 Baso % (Auto) 0.8 % (0.0-1.8) 09/11/16 05:47 Lymph # 1.1 K/mm3 (1.2-5.4) L 09/11/16 05:47 [place] # 1.0 K/mm3 (0.0-0.8) H 09/11/16 05:47 Eos # 0.1 K/mm3 (0.0-0.4) 09/11/16 05:47 Baso # 0.1 K/mm3 (0.0-0.1) 09/11/16 05:47 Seg Neutrophils % 78.1 % (40.0-70.0) H 09/11/16 05:47 Seg Neutrophils # 8.1 K/mm3 (1.8-7.7) H 09/11/16 05:47 PT 14.8 Sec. (12.2-14.9) 09/12/16 10:12 INR 1.17 (0.87-1.13) H 09/12/16 10:12 APTT 35.5 Sec. (24.2-36.6) 09/12/16 10:12 D-Dimer 741.42 ng/mlDDU (0-234) H 09/08/16 13:14 Heparin Anti-Xa Level 0.41 U.I./ml (0.3-0.7) 09/14/16 06:54 POC ABG pH 7.412 (7.35-7.45) 09/09/16 18:09 POC ABG pCO2 42.1 (35-45) 09/09/16 18:09 POC ABG pO2 73 (80-105) L 09/09/16 18:09 POC ABG HCO3 26.8 09/09/16 18:09 POC ABG Total CO2 28 09/09/16 18:09 POC ABG O2 Sat 95 09/09/16 18:09 POC ABG Base Excess 2 09/09/16 18:09 VBG pH 7.369 (7.320-7.420) 09/07/16 17:50 FiO2 28 % 09/09/16 18:09 Sodium 141 mmol/L (137-145) 09/11/16 05:47 Potassium 3.7 mmol/L (3.6-5.0) 09/11/16 05:47 Chloride 99.9 mmol/L (98-107) 09/11/16 05:47 Carbon Dioxide 28 mmol/L (22-30) 09/11/16 05:47 Anion Gap 17 mmol/L 09/11/16 05:47 BUN 5 mg/dL (9-20) L 09/11/16 05:47 Creatinine 0.7 mg/dL (0.8-1.5) L 09/11/16 05:47 Estimated GFR > 60 ml/min 09/11/16 05:47 BUN/Creatinine Ratio 7.14 % 09/11/16 05:47 Glucose 121 mg/dL (75-100) H 09/11/16 05:47 POC Glucose 87 (70-105) 09/14/16 16:50 Hemoglobin A1c 6.6 % (4-6) H 09/08/16 04:51 Lactic Acid 1.2 mmol/L (0.7-2.0) 09/09/16 03:59 Calcium 9.3 mg/dL (8.4-10.2) 09/11/16 05:47 Magnesium 1.8 mg/dL (1.7-2.3) 09/09/16 03:59 Total Bilirubin 0.4 mg/dL (0.1-1.2) 09/08/16 04:51 AST 16 units/L (5-40) 09/08/16 04:51 ALT 20 units/L (7-56) 09/08/16 04:51 Alkaline Phosphatase 82 units/L (35-129) 09/08/16 04:51 Lactate Dehydrogenase 208 units/L (91-180) H 09/10/16 03:49 Total Creatine Kinase 34 units/L (55-170) L 09/07/16 18:06 Troponin T < 0.010 ng/mL (0.00-0.029) 09/07/16 17:50 C-Reactive Protein 5.70 mg/dL (0.00-1.30) H 09/08/16 13:14 NT-Pro-B Natriuret Pep 547.2 pg/mL (0-900) 09/07/16 17:50 Total Protein 6.8 g/dL (6.3-8.2) 09/09/16 21:30 Albumin 2.9 g/dL (3.9-5) L 09/08/16 04:51 Albumin/Globulin Ratio 0.7 % 09/08/16 04:51 TSH 0.982 mlU/mL (0.270-4.200) 09/07/16 18:06 Free T4 1.12 ng/dL (0.76-1.46) 09/07/16 17:50 Fluid Total Protein 4.6 (15.0-45.0) L 09/12/16 12:46 Fluid LDH 172 09/12/16 12:46 Ketones 0.1 mmol/L (-0.28) 09/07/16 18:06
--- NOTE | 2016-09-14 19:23 | Progress Note ---
Assessment and Plan Patient alert, awake, Oriented. No acute respiratory distress.O2 satuaration 95% .On 2 litres O2.No pneumothorax reported post percutaneous needle biopsy of lung.Reported lopacification left lower lung .Percutaneous needle biopsy of chest results pending. - Patient Problems (1) Mass of left lung Current Visit: Yes Status: Acute Plan to address problem: Patient undergone percutaneous needle biopsy of left chest lesion. No malignancy reported. (2) Acute hypoxemic respiratory failure Current Visit: Yes Status: Acute Plan to address problem: O2 supplementation 2 litres. Albuterol/atrovent aerosol treatments q 6 hours. (3) Pleural effusion, left Current Visit: Yes Status: Acute Plan to address problem: S/P left thoracentesis. Pleural fluid Protien 4.6, LDH 172 Pleural fluid is exudate. Pleural fluid cytology reported negative for malignant cells. (4) Atelectasis of left lung Current Visit: Yes Status: Acute Plan to address problem: Albuterol/atrovent aerosol treatments q 6 hours. Incentive spirometry Chest PT. If no improvement may consider bronchoscopy. Subjective Date of service: 09/14/16 Principal diagnosis: Atrial Fib with RVR; Acute Hypoxemic Resp Failure Interval history: Patient alert, awake, Oriented. No acute respiratory distress.O2 satuaration 95% .On 2 litres O2.No pneumothorax reported post percutaneous needle biopsy of lung.Reported lopacification left lower lung .Percutaneous needle biopsy reported no malignancy.Pleural fluid cytology also reported no malignant cells. Objective Vital Signs - 12hr 09/14/16 09/14/16 09/14/16 07:30 08:07 08:15 Temperature 97.9 F Pulse Rate Pulse Rate [ 80 Apical] Pulse Rate [ 107 H 110 H Bilateral] Respiratory 20 Rate Respiratory 18 20 Rate [Bilateral ] Blood Pressure 112/63 [Left Arm] O2 Sat by Pulse 99 98 Oximetry 09/14/16 09/14/16 09/14/16 10:00 11:30 13:57 Temperature 98.5 F Pulse Rate 113 H Pulse Rate [ 113 H 100 H Apical] Pulse Rate [ 106 H Bilateral] Respiratory 20 Rate Respiratory 20 Rate [Bilateral ] Blood Pressure 137/71 [Left Arm] O2 Sat by Pulse 97 95 Oximetry 09/14/16 16:30 Temperature 98.9 F Pulse Rate Pulse Rate [ 85 Apical] Pulse Rate [ Bilateral] Respiratory 20 Rate Respiratory Rate [Bilateral ] Blood Pressure 132/72 [Left Arm] O2 Sat by Pulse 97 Oximetry Constitutional: no acute distress, alert Eyes: non-icteric ENT: oropharynx moist Neck: supple, no lymphadenopathy Effort: normal Ascultation: Left: diminished breath sounds, Bilateral: rhonchi (posterior bases ) Cardiovascular: irregular rhythm Gastrointestinal: normoactive bowel sounds, soft, non-tender, non-distended Integumentary: normal Extremities: no cyanosis, no edema, pulses normal, no ischemia or petechiae Neurologic: normal mental status, non-focal exam, pupils equal and round, motor strength normal and Psychiatric: mood appropriate, affect normal CBC and BMP: 09/14/16 06:54 09/11/16 05:47 ABG, PT/INR, D-dimer: ABG POC ABG pH 7.412 (7.35-7.45) 09/09/16 18:09 POC ABG pCO2 42.1 (35-45) 09/09/16 18:09 POC ABG pO2 73 (80-105) L 09/09/16 18:09 POC ABG HCO3 26.8 09/09/16 18:09 POC ABG Total CO2 28 09/09/16 18:09 POC ABG O2 Sat 95 09/09/16 18:09 PT/INR, D-dimer PT 14.8 Sec. (12.2-14.9) 09/12/16 10:12 INR 1.17 (0.87-1.13) H 09/12/16 10:12 D-Dimer 741.42 ng/mlDDU (0-234) H 09/08/16 13:14 Abnormal lab findings: Abnormal Labs 09/07/16 09/07/16 09/08/16 22:28 23:36 04:51 Hgb 10.3 L Hct 33.2 L MCV 70 L MCH 22 L MCHC 31 L RDW 15.8 H Lymph % (Auto) [place] % (Auto) 11.2 H Lymph # [place] # 1.1 H Seg Neutrophils % Seg Neutrophils # PT INR D-Dimer Heparin Anti-Xa Level POC ABG pO2 BUN Creatinine Glucose POC Glucose 121 H 119 H Hemoglobin A1c Lactic Acid Lactate Dehydrogenase C-Reactive Protein Albumin Fluid Total Protein 09/08/16 09/08/16 09/08/16 04:51 04:51 07:42 Hgb Hct MCV MCH MCHC RDW Lymph % (Auto) [place] % (Auto) Lymph # [place] # Seg Neutrophils % Seg Neutrophils # PT INR D-Dimer Heparin Anti-Xa Level POC ABG pO2 BUN 7 L Creatinine Glucose 133 H POC Glucose 118 H Hemoglobin A1c 6.6 H Lactic Acid Lactate Dehydrogenase C-Reactive Protein Albumin 2.9 L Fluid Total Protein 09/08/16 09/08/16 09/08/16 13:14 13:14 13:14 Hgb Hct MCV MCH MCHC RDW Lymph % (Auto) [place] % (Auto) Lymph # [place] # Seg Neutrophils % Seg Neutrophils # PT INR D-Dimer 741.42 H Heparin Anti-Xa Level POC ABG pO2 BUN Creatinine Glucose POC Glucose Hemoglobin A1c Lactic Acid 2.5 H* Lactate Dehydrogenase C-Reactive Protein 5.70 H Albumin Fluid Total Protein 09/08/16 09/08/16 09/09/16 15:50 21:42 03:59 Hgb Hct MCV MCH MCHC RDW Lymph % (Auto) [place] % (Auto) Lymph # [place] # Seg Neutrophils % Seg Neutrophils # PT INR D-Dimer Heparin Anti-Xa Level POC ABG pO2 BUN 6 L Creatinine 0.7 L Glucose POC Glucose 69 L 69 L Hemoglobin A1c Lactic Acid Lactate Dehydrogenase C-Reactive Protein Albumin Fluid Total Protein 09/09/16 09/09/16 09/10/16 07:39 18:09 03:49 Hgb 10.7 L Hct 33.9 L MCV MCH MCHC RDW Lymph % (Auto) [place] % (Auto) Lymph # [place] # Seg Neutrophils % Seg Neutrophils # PT INR D-Dimer Heparin Anti-Xa Level POC ABG pO2 73 L BUN Creatinine Glucose POC Glucose 106 H Hemoglobin A1c Lactic Acid Lactate Dehydrogenase C-Reactive Protein Albumin Fluid Total Protein 09/10/16 09/10/16 09/10/16 03:49 08:06 11:02 Hgb Hct MCV MCH MCHC RDW Lymph % (Auto) [place] % (Auto) Lymph # [place] # Seg Neutrophils % Seg Neutrophils # PT INR D-Dimer Heparin Anti-Xa Level POC ABG pO2 BUN Creatinine Glucose POC Glucose 123 H 121 H Hemoglobin A1c Lactic Acid Lactate Dehydrogenase 208 H C-Reactive Protein Albumin Fluid Total Protein 09/10/16 09/10/16 09/10/16 12:14 15:52 21:11 Hgb Hct MCV MCH MCHC RDW Lymph % (Auto) [place] % (Auto) Lymph # [place] # Seg Neutrophils % Seg Neutrophils # PT 15.6 H INR 1.25 H D-Dimer Heparin Anti-Xa Level POC ABG pO2 BUN Creatinine Glucose POC Glucose 162 H 156 H Hemoglobin A1c Lactic Acid Lactate Dehydrogenase C-Reactive Protein Albumin Fluid Total Protein 09/10/16 09/10/16 09/11/16 22:58 23:47 05:47 Hgb 10.7 L Hct 34.7 L MCV 69 L MCH 21 L MCHC 31 L RDW 15.8 H Lymph % (Auto) 10.9 L [place] % (Auto) 9.4 H Lymph # 1.1 L [place] # 1.0 H Seg Neutrophils % 78.1 H Seg Neutrophils # 8.1 H PT INR D-Dimer Heparin Anti-Xa Level 0.25 L POC ABG pO2 BUN Creatinine Glucose POC Glucose 141 H Hemoglobin A1c Lactic Acid Lactate Dehydrogenase C-Reactive Protein Albumin Fluid Total Protein 09/11/16 09/11/16 09/11/16 05:47 05:47 08:31 Hgb Hct MCV MCH MCHC RDW Lymph % (Auto) [place] % (Auto) Lymph # [place] # Seg Neutrophils % Seg Neutrophils # PT INR D-Dimer Heparin Anti-Xa Level 0.16 L POC ABG pO2 BUN 5 L Creatinine 0.7 L Glucose 121 H POC Glucose 111 H Hemoglobin A1c Lactic Acid Lactate Dehydrogenase C-Reactive Protein Albumin Fluid Total Protein 09/11/16 09/11/16 09/11/16 12:33 13:46 16:58 Hgb Hct MCV MCH MCHC RDW Lymph % (Auto) [place] % (Auto) Lymph # [place] # Seg Neutrophils % Seg Neutrophils # PT INR D-Dimer Heparin Anti-Xa Level < 0.10 L POC ABG pO2 BUN Creatinine Glucose POC Glucose 135 H 69 L Hemoglobin A1c Lactic Acid Lactate Dehydrogenase C-Reactive Protein Albumin Fluid Total Protein 09/12/16 09/12/16 09/12/16 07:52 10:12 11:39 Hgb Hct MCV MCH MCHC RDW Lymph % (Auto) [place] % (Auto) Lymph # [place] # Seg Neutrophils % Seg Neutrophils # PT INR 1.17 H D-Dimer Heparin Anti-Xa Level POC ABG pO2 BUN Creatinine Glucose POC Glucose 112 H 110 H Hemoglobin A1c Lactic Acid Lactate Dehydrogenase C-Reactive Protein Albumin Fluid Total Protein 09/12/16 09/12/16 09/12/16 12:46 17:07 22:36 Hgb Hct MCV MCH MCHC RDW Lymph % (Auto) [place] % (Auto) Lymph # [place] # Seg Neutrophils % Seg Neutrophils # PT INR D-Dimer Heparin Anti-Xa Level POC ABG pO2 BUN Creatinine Glucose POC Glucose 115 H 171 H Hemoglobin A1c Lactic Acid Lactate Dehydrogenase C-Reactive Protein Albumin Fluid Total Protein 4.6 L 09/12/16 09/13/16 09/13/16 23:10 12:40 18:35 Hgb Hct MCV MCH MCHC RDW Lymph % (Auto) [place] % (Auto) Lymph # [place] # Seg Neutrophils % Seg Neutrophils # PT INR D-Dimer Heparin Anti-Xa Level < 0.10 L POC ABG pO2 BUN Creatinine Glucose POC Glucose 142 H 123 H Hemoglobin A1c Lactic Acid Lactate Dehydrogenase C-Reactive Protein Albumin Fluid Total Protein 09/13/16 09/14/16 09/14/16 22:32 06:54 07:29 Hgb 10.3 L Hct 32.4 L D MCV MCH MCHC RDW Lymph % (Auto) [place] % (Auto) Lymph # [place] # Seg Neutrophils % Seg Neutrophils # PT INR D-Dimer Heparin Anti-Xa Level POC ABG pO2 BUN Creatinine Glucose POC Glucose 121 H 133 H Hemoglobin A1c Lactic Acid Lactate Dehydrogenase C-Reactive Protein Albumin Fluid Total Protein 09/14/16 11:28 Hgb Hct MCV MCH MCHC RDW Lymph % (Auto) [place] % (Auto) Lymph # [place] # Seg Neutrophils % Seg Neutrophils # PT INR D-Dimer Heparin Anti-Xa Level POC ABG pO2 BUN Creatinine Glucose POC Glucose 112 H Hemoglobin A1c Lactic Acid Lactate Dehydrogenase C-Reactive Protein Albumin Fluid Total Protein Chest x-ray: report reviewed (No pneumothorax, left sided atelectasis.), image reviewed
[2016-09-14] MEDS: ZOCOR PO SCH (22:54)
[2016-09-14] MEDS: HEPARIN/ 0.45% NACL-25,000 UNIT/500 ML 25,000 UNIT/500 ML BAG IV SCH (23:32)
[2016-09-15] MEDS: ATROVENT IH SCH ×3 (01:42→13:44)
[2016-09-15] MEDS: PROVENTIL IH SCH ×3 (01:43→13:44)
[2016-09-15] MEDS: COZAAR PO SCH (10:34)
[2016-09-15] MEDS: CARDIZEM CD PO SCH (10:35)
[2016-09-15] MEDS: PEPCID PO SCH (10:35)
[2016-09-15] MEDS: FLOMAX PO SCH (10:36)
[2016-09-15] MEDS: GLUCOTROL PO SCH (10:41)
--- NOTE | 2016-09-15 11:02 | Progress Note ---
Assessment and Plan Assessment and plan: --Acute hypoxemic Respiratory failure Due to malignant pleural effusion as well as left-sided lung mass Continue oxygen titrated to O2 sats more than 90%, nebulizers and supportive care --Lung mass, s/p CT-guided biopsy, no malignancy reported Pulmonary following, --Malignant pleural effusion, status post paracentesis Fluid analysis no malignancy reported --Left lung atelectasis, questionable pneumonia Continue IV antibiotics, chest PT Possible bronchoscopy if no response --Atrial flutter , Rate Controlled on oral Cardizem, --Anticoagulation ; continue heparin drip Coumadin started, monitor INR target level 2-3 When INR is therapeutic heparin drip will be discontinued --Type 2 diabetes mellitus, on oral hypoglycemics Moderate control, Accu-Chek sliding scale coverage and ADA diet, and oral meds Hemoglobin A1c 6.6 --Right wrist pain and swelling Possible gout/osteoarthritis, x-ray right wrist negative Continue Indocin, elevated the wrist --Dyslipidemia; Continue current lipid-lowering medications --History of BPH, stable on Flomax --DVT prophylaxis, patient is already on heparin drip --CODE STATUS; full code Plan of care discussed with the patient as well as the nurse Also discussed with the case management History Interval history: Patient seen and evaluated medical records reviewed Feels better no new complaints His right wrist swelling and pain significantly improved Patient denies any chest pain or shortness of breath, denies nausea vomiting Alert awake oriented 3 not in acute distress Vital signs reviewed Hospitalist Physical - Constitutional Vitals: Temp Pulse Resp BP Pulse Ox 97.1 F L 84 18 121/84 98 09/15/16 07:30 09/15/16 07:30 09/15/16 07:30 09/15/16 10:35 09/15/16 09:31 General appearance: Present: no acute distress, well-nourished, other (anxious ) - EENT Eyes: Present: PERRL, EOM intact - Neck Neck: Present: supple, normal ROM - Respiratory Respiratory effort: normal Respiratory: bilateral: diminished, rhonchi - Cardiovascular Rhythm: regular Heart Sounds: Present: S1 & S2 - Extremities Extremities: no ischemia, pulses intact, pulses symmetrical Peripheral Pulses: within normal limits - Abdominal General gastrointestinal: soft, non-tender, non-distended, normal bowel sounds - Integumentary Integumentary: Present: clear, warm - Psychiatric Psychiatric: appropriate mood/affect, cooperative - Neurologic Neurologic: CNII-XII intact, moves all extremities Results - Labs CBC & Chem 7: 09/14/16 06:54 09/11/16 05:47 Labs: Laboratory Last Values WBC 10.3 K/mm3 (4.5-11.0) 09/11/16 05:47 RBC 5.02 M/mm3 (3.65-5.03) 09/11/16 05:47 Hgb 10.3 gm/dl (11.8-15.2) L 09/14/16 06:54 Hct 32.4 % (35.5-45.6) L D 09/14/16 06:54 MCV 69 fl (84-94) L 09/11/16 05:47 MCH 21 pg (28-32) L 09/11/16 05:47 MCHC 31 % (32-34) L 09/11/16 05:47 RDW 15.8 % (13.2-15.2) H 09/11/16 05:47 Plt Count 297 K/mm3 (140-440) 09/14/16 06:54 Lymph % (Auto) 10.9 % (13.4-35.0) L 09/11/16 05:47 [place] % (Auto) 9.4 % (0.0-7.3) H 09/11/16 05:47 Eos % (Auto) 0.8 % (0.0-4.3) 09/11/16 05:47 Baso % (Auto) 0.8 % (0.0-1.8) 09/11/16 05:47 Lymph # 1.1 K/mm3 (1.2-5.4) L 09/11/16 05:47 [place] # 1.0 K/mm3 (0.0-0.8) H 09/11/16 05:47 Eos # 0.1 K/mm3 (0.0-0.4) 09/11/16 05:47 Baso # 0.1 K/mm3 (0.0-0.1) 09/11/16 05:47 Seg Neutrophils % 78.1 % (40.0-70.0) H 09/11/16 05:47 Seg Neutrophils # 8.1 K/mm3 (1.8-7.7) H 09/11/16 05:47 PT 14.8 Sec. (12.2-14.9) 09/12/16 10:12 INR 1.17 (0.87-1.13) H 09/12/16 10:12 APTT 35.5 Sec. (24.2-36.6) 09/12/16 10:12 D-Dimer 741.42 ng/mlDDU (0-234) H 09/08/16 13:14 Heparin Anti-Xa Level 0.49 U.I./ml (0.3-0.7) 09/15/16 06:28 POC ABG pH 7.412 (7.35-7.45) 09/09/16 18:09 POC ABG pCO2 42.1 (35-45) 09/09/16 18:09 POC ABG pO2 73 (80-105) L 09/09/16 18:09 POC ABG HCO3 26.8 09/09/16 18:09 POC ABG Total CO2 28 09/09/16 18:09 POC ABG O2 Sat 95 09/09/16 18:09 POC ABG Base Excess 2 09/09/16 18:09 VBG pH 7.369 (7.320-7.420) 09/07/16 17:50 FiO2 28 % 09/09/16 18:09 Sodium 141 mmol/L (137-145) 09/11/16 05:47 Potassium 3.7 mmol/L (3.6-5.0) 09/11/16 05:47 Chloride 99.9 mmol/L (98-107) 09/11/16 05:47 Carbon Dioxide 28 mmol/L (22-30) 09/11/16 05:47 Anion Gap 17 mmol/L 09/11/16 05:47 BUN 5 mg/dL (9-20) L 09/11/16 05:47 Creatinine 0.7 mg/dL (0.8-1.5) L 09/11/16 05:47 Estimated GFR > 60 ml/min 09/11/16 05:47 BUN/Creatinine Ratio 7.14 % 09/11/16 05:47 Glucose 121 mg/dL (75-100) H 09/11/16 05:47 POC Glucose 111 (70-105) H 09/15/16 07:36 Hemoglobin A1c 6.6 % (4-6) H 09/08/16 04:51 Lactic Acid 1.2 mmol/L (0.7-2.0) 09/09/16 03:59 Calcium 9.3 mg/dL (8.4-10.2) 09/11/16 05:47 Magnesium 1.8 mg/dL (1.7-2.3) 09/09/16 03:59 Total Bilirubin 0.4 mg/dL (0.1-1.2) 09/08/16 04:51 AST 16 units/L (5-40) 09/08/16 04:51 ALT 20 units/L (7-56) 09/08/16 04:51 Alkaline Phosphatase 82 units/L (35-129) 09/08/16 04:51 Lactate Dehydrogenase 208 units/L (91-180) H 09/10/16 03:49 Total Creatine Kinase 34 units/L (55-170) L 09/07/16 18:06 Troponin T < 0.010 ng/mL (0.00-0.029) 09/07/16 17:50 C-Reactive Protein 5.70 mg/dL (0.00-1.30) H 09/08/16 13:14 NT-Pro-B Natriuret Pep 547.2 pg/mL (0-900) 09/07/16 17:50 Total Protein 6.8 g/dL (6.3-8.2) 09/09/16 21:30 Albumin 2.9 g/dL (3.9-5) L 09/08/16 04:51 Albumin/Globulin Ratio 0.7 % 09/08/16 04:51 TSH 0.982 mlU/mL (0.270-4.200) 09/07/16 18:06 Free T4 1.12 ng/dL (0.76-1.46) 09/07/16 17:50 Fluid Total Protein 4.6 (15.0-45.0) L 09/12/16 12:46 Fluid LDH 172 09/12/16 12:46 Ketones 0.1 mmol/L (-0.28) 09/07/16 18:06
--- NOTE | 2016-09-15 11:17 | Progress Note ---
Assessment and Plan Persistent Atrial fib/flutter, uncertain duration rate controlled on oral cardizem Left Pleural effusion Left lung Atelectasis Diabetes mellitus Hypertension Echo revealing LVEF 45-50% Recommendations: Patient's atrial flutter is likely a chronic finding in the setting of his pulmonary disease. We will continue rate control with AV travis blocking agents. Subjective Date of service: 09/15/16 Principal diagnosis: Atrial Fib with RVR; Acute Hypoxemic Resp Failure Interval history: Patient resting in bed comfortably. He has no complaints. Objective Vital Signs Temp Pulse Pulse Pulse Resp Resp BP 09/15/16 10:35 121/84 09/15/16 10:34 121/84 09/15/16 09:31 09/15/16 07:30 97.1 F L 84 18 09/15/16 04:54 97.6 F 78 20 09/15/16 00:49 98.2 F 78 20 09/14/16 22:00 83 09/14/16 21:17 100.7 F H 102 H 20 09/14/16 20:33 97 H 20 09/14/16 20:24 09/14/16 20:23 91 H 20 09/14/16 16:30 98.9 F 85 20 09/14/16 13:57 106 H 20 09/14/16 11:30 98.5 F 100 H 20 BP Pulse Ox 09/15/16 10:35 09/15/16 10:34 09/15/16 09:31 98 09/15/16 07:30 126/84 97 09/15/16 04:54 125/76 98 09/15/16 00:49 136/78 99 09/14/16 22:00 09/14/16 21:17 116/74 95 09/14/16 20:33 09/14/16 20:24 97 09/14/16 20:23 09/14/16 16:30 132/72 97 09/14/16 13:57 09/14/16 11:30 137/71 95 - Physical Examination General: No Apparent Distress HEENT: Positive: PERRL Neck: Positive: trachea midline Cardiac: Positive: irregularly irregular Lungs: Positive: Decreased Breath Sounds Neuro: Positive: Grossly Intact - Imaging and Cardiology EKG: report reviewed (Afib with rvr)
[2016-09-15 14:38] LABS: INR 1.05 (0.87-1.13)
[2016-09-15] MEDS ORDERED: PROVENTIL IH PRN (15:35)
[2016-09-15] MEDS ORDERED: COUMADIN PO SCH ×2 (17:00)
[2016-09-15] MEDS: HEPARIN/ 0.45% NACL-25,000 UNIT/500 ML 25,000 UNIT/500 ML BAG IV SCH (17:30)
--- NOTE | 2016-09-15 18:31 | Progress Note ---
Assessment and Plan Patient alert, awake, Oriented. No acute respiratory distress.O2 satuaration 95% .On 2 litres O2.No pneumothorax reported post percutaneous needle biopsy of lung.Reported lopacification left lower lung .Percutaneous needle biopsy of chest results pending. Scheduling the patient for bronchoscopy tomorrow to be done by Dr. Grover. Explained the procedure to the patient. Patient agreed for the procedure. - Patient Problems (1) Mass of left lung Current Visit: Yes Status: Acute Plan to address problem: Patient undergone percutaneous needle biopsy of left chest lesion. No malignancy reported. (2) Acute hypoxemic respiratory failure Current Visit: Yes Status: Acute Plan to address problem: O2 supplementation 2 litres. Albuterol/atrovent aerosol treatments q 6 hours. (3) Pleural effusion, left Current Visit: Yes Status: Acute Plan to address problem: S/P left thoracentesis. Pleural fluid Protien 4.6, LDH 172 Pleural fluid is exudate. Pleural fluid cytology reported negative for malignant cells. (4) Atelectasis of left lung Current Visit: Yes Status: Acute Plan to address problem: Albuterol/atrovent aerosol treatments q 6 hours. Incentive spirometry Chest PT. Sceduling the patient for bronchoscopy tomorrow to be done by Dr. Grover. Subjective Date of service: 09/15/16 Principal diagnosis: Atrial Fib with RVR; Acute Hypoxemic Resp Failure Interval history: Patient alert, awake, Oriented. No acute respiratory distress.O2 satuaration 95% .On 2 litres O2.No pneumothorax reported post percutaneous needle biopsy of lung.Reported opacification left lower lung .Percutaneous needle biopsy reported no malignancy.Pleural fluid cytology also reported no malignant cells. Scheduling the patient for bronchoscopy tomorrow to be done by Dr. Grover. Explained the procedure to the patient. Patient agreed for the procedure. Objective Vital Signs - 12hr 09/15/16 09/15/16 09/15/16 07:20 07:30 09:31 Temperature 97.1 F L Pulse Rate [ 96 H 87 Anterior Bilateral Throughout] Pulse Rate [ 84 Apical] Respiratory 18 Rate Respiratory 20 20 Rate [Anterior Bilateral Throughout] Blood Pressure Blood Pressure 126/84 [Left Arm] O2 Sat by Pulse 97 98 Oximetry 09/15/16 09/15/16 09/15/16 10:34 10:35 11:30 Temperature 97.8 F Pulse Rate [ Anterior Bilateral Throughout] Pulse Rate [ 66 Apical] Respiratory 16 Rate Respiratory Rate [Anterior Bilateral Throughout] Blood Pressure 121/84 121/84 Blood Pressure 111/55 [Left Arm] O2 Sat by Pulse Oximetry 09/15/16 09/15/16 13:44 13:55 Temperature Pulse Rate [ 75 73 Anterior Bilateral Throughout] Pulse Rate [ Apical] Respiratory Rate Respiratory 20 20 Rate [Anterior Bilateral Throughout] Blood Pressure Blood Pressure [Left Arm] O2 Sat by Pulse Oximetry Constitutional: no acute distress, alert Eyes: non-icteric ENT: oropharynx moist Neck: supple, no lymphadenopathy Effort: normal Ascultation: Left: diminished breath sounds, Bilateral: rhonchi (posterior bases ) Cardiovascular: irregular rhythm Gastrointestinal: normoactive bowel sounds, soft, non-tender, non-distended Integumentary: normal Extremities: no cyanosis, no edema, pulses normal, no ischemia or petechiae Neurologic: normal mental status, non-focal exam, pupils equal and round, motor strength normal and Psychiatric: mood appropriate, affect normal CBC and BMP: 09/14/16 06:54 09/11/16 05:47 ABG, PT/INR, D-dimer: ABG POC ABG pH 7.412 (7.35-7.45) 09/09/16 18:09 POC ABG pCO2 42.1 (35-45) 09/09/16 18:09 POC ABG pO2 73 (80-105) L 09/09/16 18:09 POC ABG HCO3 26.8 09/09/16 18:09 POC ABG Total CO2 28 09/09/16 18:09 POC ABG O2 Sat 95 09/09/16 18:09 PT/INR, D-dimer PT 13.6 Sec. (12.2-14.9) 09/15/16 14:04 INR 1.05 (0.87-1.13) 09/15/16 14:04 D-Dimer 741.42 ng/mlDDU (0-234) H 09/08/16 13:14 Abnormal lab findings: Abnormal Labs 09/07/16 09/07/16 09/08/16 22:28 23:36 04:51 Hgb 10.3 L Hct 33.2 L MCV 70 L MCH 22 L MCHC 31 L RDW 15.8 H Lymph % (Auto) [place] % (Auto) 11.2 H Lymph # [place] # 1.1 H Seg Neutrophils % Seg Neutrophils # PT INR D-Dimer Heparin Anti-Xa Level POC ABG pO2 BUN Creatinine Glucose POC Glucose 121 H 119 H Hemoglobin A1c Lactic Acid Lactate Dehydrogenase C-Reactive Protein Albumin Fluid Total Protein 09/08/16 09/08/16 09/08/16 04:51 04:51 07:42 Hgb Hct MCV MCH MCHC RDW Lymph % (Auto) [place] % (Auto) Lymph # [place] # Seg Neutrophils % Seg Neutrophils # PT INR D-Dimer Heparin Anti-Xa Level POC ABG pO2 BUN 7 L Creatinine Glucose 133 H POC Glucose 118 H Hemoglobin A1c 6.6 H Lactic Acid Lactate Dehydrogenase C-Reactive Protein Albumin 2.9 L Fluid Total Protein 09/08/16 09/08/16 09/08/16 13:14 13:14 13:14 Hgb Hct MCV MCH MCHC RDW Lymph % (Auto) [place] % (Auto) Lymph # [place] # Seg Neutrophils % Seg Neutrophils # PT INR D-Dimer 741.42 H Heparin Anti-Xa Level POC ABG pO2 BUN Creatinine Glucose POC Glucose Hemoglobin A1c Lactic Acid 2.5 H* Lactate Dehydrogenase C-Reactive Protein 5.70 H Albumin Fluid Total Protein 09/08/16 09/08/16 09/09/16 15:50 21:42 03:59 Hgb Hct MCV MCH MCHC RDW Lymph % (Auto) [place] % (Auto) Lymph # [place] # Seg Neutrophils % Seg Neutrophils # PT INR D-Dimer Heparin Anti-Xa Level POC ABG pO2 BUN 6 L Creatinine 0.7 L Glucose POC Glucose 69 L 69 L Hemoglobin A1c Lactic Acid Lactate Dehydrogenase C-Reactive Protein Albumin Fluid Total Protein 09/09/16 09/09/16 09/10/16 07:39 18:09 03:49 Hgb 10.7 L Hct 33.9 L MCV MCH MCHC RDW Lymph % (Auto) [place] % (Auto) Lymph # [place] # Seg Neutrophils % Seg Neutrophils # PT INR D-Dimer Heparin Anti-Xa Level POC ABG pO2 73 L BUN Creatinine Glucose POC Glucose 106 H Hemoglobin A1c Lactic Acid Lactate Dehydrogenase C-Reactive Protein Albumin Fluid Total Protein 09/10/16 09/10/16 09/10/16 03:49 08:06 11:02 Hgb Hct MCV MCH MCHC RDW Lymph % (Auto) [place] % (Auto) Lymph # [place] # Seg Neutrophils % Seg Neutrophils # PT INR D-Dimer Heparin Anti-Xa Level POC ABG pO2 BUN Creatinine Glucose POC Glucose 123 H 121 H Hemoglobin A1c Lactic Acid Lactate Dehydrogenase 208 H C-Reactive Protein Albumin Fluid Total Protein 09/10/16 09/10/16 09/10/16 12:14 15:52 21:11 Hgb Hct MCV MCH MCHC RDW Lymph % (Auto) [place] % (Auto) Lymph # [place] # Seg Neutrophils % Seg Neutrophils # PT 15.6 H INR 1.25 H D-Dimer Heparin Anti-Xa Level POC ABG pO2 BUN Creatinine Glucose POC Glucose 162 H 156 H Hemoglobin A1c Lactic Acid Lactate Dehydrogenase C-Reactive Protein Albumin Fluid Total Protein 09/10/16 09/10/16 09/11/16 22:58 23:47 05:47 Hgb 10.7 L Hct 34.7 L MCV 69 L MCH 21 L MCHC 31 L RDW 15.8 H Lymph % (Auto) 10.9 L [place] % (Auto) 9.4 H Lymph # 1.1 L [place] # 1.0 H Seg Neutrophils % 78.1 H Seg Neutrophils # 8.1 H PT INR D-Dimer Heparin Anti-Xa Level 0.25 L POC ABG pO2 BUN Creatinine Glucose POC Glucose 141 H Hemoglobin A1c Lactic Acid Lactate Dehydrogenase C-Reactive Protein Albumin Fluid Total Protein 09/11/16 09/11/16 09/11/16 05:47 05:47 08:31 Hgb Hct MCV MCH MCHC RDW Lymph % (Auto) [place] % (Auto) Lymph # [place] # Seg Neutrophils % Seg Neutrophils # PT INR D-Dimer Heparin Anti-Xa Level 0.16 L POC ABG pO2 BUN 5 L Creatinine 0.7 L Glucose 121 H POC Glucose 111 H Hemoglobin A1c Lactic Acid Lactate Dehydrogenase C-Reactive Protein Albumin Fluid Total Protein 09/11/16 09/11/16 09/11/16 12:33 13:46 16:58 Hgb Hct MCV MCH MCHC RDW Lymph % (Auto) [place] % (Auto) Lymph # [place] # Seg Neutrophils % Seg Neutrophils # PT INR D-Dimer Heparin Anti-Xa Level < 0.10 L POC ABG pO2 BUN Creatinine Glucose POC Glucose 135 H 69 L Hemoglobin A1c Lactic Acid Lactate Dehydrogenase C-Reactive Protein Albumin Fluid Total Protein 09/12/16 09/12/16 09/12/16 07:52 10:12 11:39 Hgb Hct MCV MCH MCHC RDW Lymph % (Auto) [place] % (Auto) Lymph # [place] # Seg Neutrophils % Seg Neutrophils # PT INR 1.17 H D-Dimer Heparin Anti-Xa Level POC ABG pO2 BUN Creatinine Glucose POC Glucose 112 H 110 H Hemoglobin A1c Lactic Acid Lactate Dehydrogenase C-Reactive Protein Albumin Fluid Total Protein 09/12/16 09/12/16 09/12/16 12:46 17:07 22:36 Hgb Hct MCV MCH MCHC RDW Lymph % (Auto) [place] % (Auto) Lymph # [place] # Seg Neutrophils % Seg Neutrophils # PT INR D-Dimer Heparin Anti-Xa Level POC ABG pO2 BUN Creatinine Glucose POC Glucose 115 H 171 H Hemoglobin A1c Lactic Acid Lactate Dehydrogenase C-Reactive Protein Albumin Fluid Total Protein 4.6 L 09/12/16 09/13/16 09/13/16 23:10 12:40 18:35 Hgb Hct MCV MCH MCHC RDW Lymph % (Auto) [place] % (Auto) Lymph # [place] # Seg Neutrophils % Seg Neutrophils # PT INR D-Dimer Heparin Anti-Xa Level < 0.10 L POC ABG pO2 BUN Creatinine Glucose POC Glucose 142 H 123 H Hemoglobin A1c Lactic Acid Lactate Dehydrogenase C-Reactive Protein Albumin Fluid Total Protein 09/13/16 09/14/16 09/14/16 22:32 06:54 07:29 Hgb 10.3 L Hct 32.4 L D MCV MCH MCHC RDW Lymph % (Auto) [place] % (Auto) Lymph # [place] # Seg Neutrophils % Seg Neutrophils # PT INR D-Dimer Heparin Anti-Xa Level POC ABG pO2 BUN Creatinine Glucose POC Glucose 121 H 133 H Hemoglobin A1c Lactic Acid Lactate Dehydrogenase C-Reactive Protein Albumin Fluid Total Protein 09/14/16 09/15/16 11:28 07:36 Hgb Hct MCV MCH MCHC RDW Lymph % (Auto) [place] % (Auto) Lymph # [place] # Seg Neutrophils % Seg Neutrophils # PT INR D-Dimer Heparin Anti-Xa Level POC ABG pO2 BUN Creatinine Glucose POC Glucose 112 H 111 H Hemoglobin A1c Lactic Acid Lactate Dehydrogenase C-Reactive Protein Albumin Fluid Total Protein Chest x-ray: report reviewed (Opacification of left hemithorax.), image reviewed
[2016-09-15] MEDS: ZOCOR PO SCH (21:39)
[2016-09-15] MEDS: DUONEB 0.5 MG-3 MG/3 ML SOLN IH SCH (22:00)
[2016-09-16] MEDS: DUONEB 0.5 MG-3 MG/3 ML SOLN IH SCH ×4 (02:51→20:54)
[2016-09-16 07:14] LABS: Hematocrit 33.7 % (35.5-45.6); Hemoglobin 10.5 gm/dl (11.8-15.2)
[2016-09-16 07:23] LABS: INR 1.16 (0.87-1.13)
[2016-09-16 07:24] LABS: Partial Thromboplastin Time 46.1 Sec. (24.2-36.6)
--- NOTE | 2016-09-16 10:02 | Progress Note ---
Assessment and Plan - Patient Problems (1) Acute hypoxemic respiratory failure Current Visit: Yes Status: Acute (2) Abnormal CXR (chest x-ray) Current Visit: Yes Status: Acute (3) Obesity Current Visit: Yes Status: Acute Qualifiers: Obesity type: O Obesity severity: O (4) Atrial flutter with rapid ventricular response Current Visit: Yes Status: Acute (5) HTN (hypertension) Current Visit: Yes Status: Chronic Qualifiers: Hypertension type: essential hypertension Qualified Code(s): I10 - Essential (primary) hypertension (6) Discharge planning issues Current Visit: Yes Status: Acute Subjective Date of service: 09/16/16 Principal diagnosis: Atrial Fib with RVR; Acute Hypoxemic Resp Failure Interval history: Seen and examined at bedside; 24 hour events reviewed; nursing and respiratory care staff consulted; no adverse overnight events reported to me; Objective Vital Signs - 12hr 09/15/16 09/15/16 09/16/16 22:03 22:11 00:38 Temperature 98.2 F Pulse Rate [ 74 80 Anterior Bilateral Throughout] Pulse Rate [ 64 Apical] Respiratory 18 Rate Respiratory 18 18 Rate [Anterior Bilateral Throughout] Blood Pressure 111/70 [Left Arm] O2 Sat by Pulse 95 Oximetry 09/16/16 09/16/16 09/16/16 05:40 07:30 08:00 Temperature 97.6 F 96.8 F L Pulse Rate [ 84 Anterior Bilateral Throughout] Pulse Rate [ 82 102 H Apical] Respiratory 20 18 Rate Respiratory 16 Rate [Anterior Bilateral Throughout] Blood Pressure 123/86 129/73 [Left Arm] O2 Sat by Pulse 100 100 Oximetry 09/16/16 09/16/16 08:15 08:32 Temperature Pulse Rate [ 88 Anterior Bilateral Throughout] Pulse Rate [ Apical] Respiratory Rate Respiratory 16 Rate [Anterior Bilateral Throughout] Blood Pressure [Left Arm] O2 Sat by Pulse 96 Oximetry Constitutional: no acute distress, alert Eyes: non-icteric ENT: oropharynx moist Neck: supple, no lymphadenopathy Effort: normal Ascultation: Left: diminished breath sounds, Bilateral: rhonchi (posterior bases ) Cardiovascular: irregular rhythm Gastrointestinal: normoactive bowel sounds, soft, non-tender, non-distended Integumentary: normal Extremities: no cyanosis, no edema, pulses normal, no ischemia or petechiae Neurologic: normal mental status, non-focal exam, pupils equal and round, motor strength normal and Psychiatric: mood appropriate, affect normal CBC and BMP: 09/16/16 06:22 09/11/16 05:47 ABG, PT/INR, D-dimer: ABG POC ABG pH 7.412 (7.35-7.45) 09/09/16 18:09 POC ABG pCO2 42.1 (35-45) 09/09/16 18:09 POC ABG pO2 73 (80-105) L 09/09/16 18:09 POC ABG HCO3 26.8 09/09/16 18:09 POC ABG Total CO2 28 09/09/16 18:09 POC ABG O2 Sat 95 09/09/16 18:09 PT/INR, D-dimer PT 14.7 Sec. (12.2-14.9) 09/16/16 06:22 INR 1.16 (0.87-1.13) H 09/16/16 06:22 D-Dimer 741.42 ng/mlDDU (0-234) H 09/08/16 13:14 Abnormal lab findings: Abnormal Labs 09/07/16 09/07/16 09/08/16 22:28 23:36 04:51 Hgb 10.3 L Hct 33.2 L MCV 70 L MCH 22 L MCHC 31 L RDW 15.8 H Lymph % (Auto) [place] % (Auto) 11.2 H Lymph # [place] # 1.1 H Seg Neutrophils % Seg Neutrophils # PT INR APTT D-Dimer Heparin Anti-Xa Level POC ABG pO2 BUN Creatinine Glucose POC Glucose 121 H 119 H Hemoglobin A1c Lactic Acid Lactate Dehydrogenase C-Reactive Protein Albumin Fluid Total Protein 09/08/16 09/08/16 09/08/16 04:51 04:51 07:42 Hgb Hct MCV MCH MCHC RDW Lymph % (Auto) [place] % (Auto) Lymph # [place] # Seg Neutrophils % Seg Neutrophils # PT INR APTT D-Dimer Heparin Anti-Xa Level POC ABG pO2 BUN 7 L Creatinine Glucose 133 H POC Glucose 118 H Hemoglobin A1c 6.6 H Lactic Acid Lactate Dehydrogenase C-Reactive Protein Albumin 2.9 L Fluid Total Protein 09/08/16 09/08/16 09/08/16 13:14 13:14 13:14 Hgb Hct MCV MCH MCHC RDW Lymph % (Auto) [place] % (Auto) Lymph # [place] # Seg Neutrophils % Seg Neutrophils # PT INR APTT D-Dimer 741.42 H Heparin Anti-Xa Level POC ABG pO2 BUN Creatinine Glucose POC Glucose Hemoglobin A1c Lactic Acid 2.5 H* Lactate Dehydrogenase C-Reactive Protein 5.70 H Albumin Fluid Total Protein 09/08/16 09/08/16 09/09/16 15:50 21:42 03:59 Hgb Hct MCV MCH MCHC RDW Lymph % (Auto) [place] % (Auto) Lymph # [place] # Seg Neutrophils % Seg Neutrophils # PT INR APTT D-Dimer Heparin Anti-Xa Level POC ABG pO2 BUN 6 L Creatinine 0.7 L Glucose POC Glucose 69 L 69 L Hemoglobin A1c Lactic Acid Lactate Dehydrogenase C-Reactive Protein Albumin Fluid Total Protein 09/09/16 09/09/16 09/10/16 07:39 18:09 03:49 Hgb 10.7 L Hct 33.9 L MCV MCH MCHC RDW Lymph % (Auto) [place] % (Auto) Lymph # [place] # Seg Neutrophils % Seg Neutrophils # PT INR APTT D-Dimer Heparin Anti-Xa Level POC ABG pO2 73 L BUN Creatinine Glucose POC Glucose 106 H Hemoglobin A1c Lactic Acid Lactate Dehydrogenase C-Reactive Protein Albumin Fluid Total Protein 09/10/16 09/10/16 09/10/16 03:49 08:06 11:02 Hgb Hct MCV MCH MCHC RDW Lymph % (Auto) [place] % (Auto) Lymph # [place] # Seg Neutrophils % Seg Neutrophils # PT INR APTT D-Dimer Heparin Anti-Xa Level POC ABG pO2 BUN Creatinine Glucose POC Glucose 123 H 121 H Hemoglobin A1c Lactic Acid Lactate Dehydrogenase 208 H C-Reactive Protein Albumin Fluid Total Protein 09/10/16 09/10/16 09/10/16 12:14 15:52 21:11 Hgb Hct MCV MCH MCHC RDW Lymph % (Auto) [place] % (Auto) Lymph # [place] # Seg Neutrophils % Seg Neutrophils # PT 15.6 H INR 1.25 H APTT D-Dimer Heparin Anti-Xa Level POC ABG pO2 BUN Creatinine Glucose POC Glucose 162 H 156 H Hemoglobin A1c Lactic Acid Lactate Dehydrogenase C-Reactive Protein Albumin Fluid Total Protein 09/10/16 09/10/16 09/11/16 22:58 23:47 05:47 Hgb 10.7 L Hct 34.7 L MCV 69 L MCH 21 L MCHC 31 L RDW 15.8 H Lymph % (Auto) 10.9 L [place] % (Auto) 9.4 H Lymph # 1.1 L [place] # 1.0 H Seg Neutrophils % 78.1 H Seg Neutrophils # 8.1 H PT INR APTT D-Dimer Heparin Anti-Xa Level 0.25 L POC ABG pO2 BUN Creatinine Glucose POC Glucose 141 H Hemoglobin A1c Lactic Acid Lactate Dehydrogenase C-Reactive Protein Albumin Fluid Total Protein 09/11/16 09/11/16 09/11/16 05:47 05:47 08:31 Hgb Hct MCV MCH MCHC RDW Lymph % (Auto) [place] % (Auto) Lymph # [place] # Seg Neutrophils % Seg Neutrophils # PT INR APTT D-Dimer Heparin Anti-Xa Level 0.16 L POC ABG pO2 BUN 5 L Creatinine 0.7 L Glucose 121 H POC Glucose 111 H Hemoglobin A1c Lactic Acid Lactate Dehydrogenase C-Reactive Protein Albumin Fluid Total Protein 09/11/16 09/11/16 09/11/16 12:33 13:46 16:58 Hgb Hct MCV MCH MCHC RDW Lymph % (Auto) [place] % (Auto) Lymph # [place] # Seg Neutrophils % Seg Neutrophils # PT INR APTT D-Dimer Heparin Anti-Xa Level < 0.10 L POC ABG pO2 BUN Creatinine Glucose POC Glucose 135 H 69 L Hemoglobin A1c Lactic Acid Lactate Dehydrogenase C-Reactive Protein Albumin Fluid Total Protein 09/12/16 09/12/16 09/12/16 07:52 10:12 11:39 Hgb Hct MCV MCH MCHC RDW Lymph % (Auto) [place] % (Auto) Lymph # [place] # Seg Neutrophils % Seg Neutrophils # PT INR 1.17 H APTT D-Dimer Heparin Anti-Xa Level POC ABG pO2 BUN Creatinine Glucose POC Glucose 112 H 110 H Hemoglobin A1c Lactic Acid Lactate Dehydrogenase C-Reactive Protein Albumin Fluid Total Protein 09/12/16 09/12/16 09/12/16 12:46 17:07 22:36 Hgb Hct MCV MCH MCHC RDW Lymph % (Auto) [place] % (Auto) Lymph # [place] # Seg Neutrophils % Seg Neutrophils # PT INR APTT D-Dimer Heparin Anti-Xa Level POC ABG pO2 BUN Creatinine Glucose POC Glucose 115 H 171 H Hemoglobin A1c Lactic Acid Lactate Dehydrogenase C-Reactive Protein Albumin Fluid Total Protein 4.6 L 09/12/16 09/13/16 09/13/16 23:10 12:40 18:35 Hgb Hct MCV MCH MCHC RDW Lymph % (Auto) [place] % (Auto) Lymph # [place] # Seg Neutrophils % Seg Neutrophils # PT INR APTT D-Dimer Heparin Anti-Xa Level < 0.10 L POC ABG pO2 BUN Creatinine Glucose POC Glucose 142 H 123 H Hemoglobin A1c Lactic Acid Lactate Dehydrogenase C-Reactive Protein Albumin Fluid Total Protein 09/13/16 09/14/16 09/14/16 22:32 06:54 07:29 Hgb 10.3 L Hct 32.4 L D MCV MCH MCHC RDW Lymph % (Auto) [place] % (Auto) Lymph # [place] # Seg Neutrophils % Seg Neutrophils # PT INR APTT D-Dimer Heparin Anti-Xa Level POC ABG pO2 BUN Creatinine Glucose POC Glucose 121 H 133 H Hemoglobin A1c Lactic Acid Lactate Dehydrogenase C-Reactive Protein Albumin Fluid Total Protein 09/14/16 09/15/16 09/15/16 11:28 07:36 21:37 Hgb Hct MCV MCH MCHC RDW Lymph % (Auto) [place] % (Auto) Lymph # [place] # Seg Neutrophils % Seg Neutrophils # PT INR APTT D-Dimer Heparin Anti-Xa Level POC ABG pO2 BUN Creatinine Glucose POC Glucose 112 H 111 H 115 H Hemoglobin A1c Lactic Acid Lactate Dehydrogenase C-Reactive Protein Albumin Fluid Total Protein 09/16/16 09/16/16 06:22 06:22 Hgb 10.5 L Hct 33.7 L MCV MCH MCHC RDW Lymph % (Auto) [place] % (Auto) Lymph # [place] # Seg Neutrophils % Seg Neutrophils # PT INR 1.16 H APTT 46.1 H D-Dimer Heparin Anti-Xa Level POC ABG pO2 BUN Creatinine Glucose POC Glucose Hemoglobin A1c Lactic Acid Lactate Dehydrogenase C-Reactive Protein Albumin Fluid Total Protein
--- NOTE | 2016-09-16 11:32 | Progress Note ---
Assessment and Plan Persistent Atrial fib/flutter, uncertain duration rate controlled on oral cardizem Left Pleural effusion Left lung Atelectasis Diabetes mellitus Hypertension Echo revealing LVEF 45-50% Recommendations: Patient's atrial flutter is likely a chronic finding in the setting of his pulmonary disease. We will continue rate control with AV travis blocking agents. Long-term oral anticoagulation will be deferred until his left lung pathology is optimally worked up and treated. Subjective Date of service: 09/16/16 Principal diagnosis: Atrial Fib with RVR; Acute Hypoxemic Resp Failure Interval history: Patient has no complaints. Awaits pulmonary workup. Objective Vital Signs Temp Pulse Pulse Pulse Resp Resp BP 09/16/16 08:32 09/16/16 08:15 88 16 09/16/16 08:00 84 16 09/16/16 07:30 96.8 F L 102 H 18 129/73 09/16/16 05:40 97.6 F 82 20 123/86 09/16/16 00:38 98.2 F 64 18 111/70 09/15/16 22:11 80 18 09/15/16 22:03 74 18 09/15/16 22:00 86 112 H 09/15/16 21:10 98.0 F 78 20 141/77 09/15/16 17:00 97.8 F 88 18 146/88 09/15/16 13:55 73 20 09/15/16 13:44 75 20 09/15/16 11:30 97.8 F 66 16 111/55 Pulse Ox 09/16/16 08:32 96 09/16/16 08:15 09/16/16 08:00 09/16/16 07:30 100 09/16/16 05:40 100 09/16/16 00:38 95 09/15/16 22:11 09/15/16 22:03 09/15/16 22:00 98 09/15/16 21:10 93 09/15/16 17:00 96 09/15/16 13:55 09/15/16 13:44 09/15/16 11:30 - Physical Examination General: No Apparent Distress HEENT: Positive: PERRL Neck: Positive: trachea midline Cardiac: Positive: irregularly irregular Lungs: Positive: Decreased Breath Sounds Neuro: Positive: Grossly Intact - Labs and Meds Coagulation 09/15/16 09/16/16 Range/Units 14:04 06:22 PT 13.6 14.7 (12.2-14.9) Sec. INR 1.05 1.16 H (0.87-1.13) APTT 46.1 H (24.2-36.6) Sec. CBC 09/16/16 Range/Units 06:22 Hgb 10.5 L (11.8-15.2) gm/dl Hct 33.7 L (35.5-45.6) % Plt Count 330 (140-440) K/mm3 - Imaging and Cardiology EKG: report reviewed (Afib with rvr)
[2016-09-16] MEDS: APRESOLINE PO PRN (16:04)
[2016-09-16] MEDS: COZAAR PO SCH (16:05)
[2016-09-16] MEDS: FLOMAX PO SCH (16:05)
[2016-09-16] MEDS: GLUCOTROL PO SCH (16:05)
[2016-09-16] MEDS: PEPCID PO SCH (16:05)
[2016-09-16] MEDS: CARDIZEM CD PO SCH (16:06)
--- NOTE | 2016-09-16 17:34 | Progress Note ---
Assessment and Plan Assessment and plan: -Acute hypoxemic Respiratory failure Due to malignant pleural effusion as well as left-sided lung mass --Lung mass, s/p CT-guided biopsy, no malignancy reported Probably atelectasis Pulmonary following, --Malignant pleural effusion, status post paracentesis Fluid analysis no malignancy reported --Left lung atelectasis, questionable pneumonia Continue IV antibiotics, chest PT Possible bronchoscopy if no response --Atrial flutter , Rate Controlled on oral Cardizem, --Anticoagulation ; continue heparin drip Coumadin will be started once patient's pulmonary issues are resolved --Type 2 diabetes mellitus, on oral hypoglycemics Moderate control, Accu-Chek sliding scale coverage and ADA diet, and oral meds Hemoglobin A1c 6.6 --Right wrist pain and swelling Improved continue current management --Dyslipidemia; Continue current lipid-lowering medications --History of BPH, stable on Flomax --DVT prophylaxis, patient is already on heparin drip --CODE STATUS; full code Chest PT, if no improvement possible bronchoscopy per pulmonary Out of bed to chair and ambulate as tolerated, physical therapy Patient's condition treatment plan discussed in detail with the patient as well as the nurse History Interval history: Patient seen and evaluated medical records reviewed Patient feels better no new complaints, alert awake oriented 3 not in acute distress Vital signs are stable Hospitalist Physical - Constitutional Vitals: Temp Pulse Resp BP Pulse Ox 98.4 F 110 H 16 128/72 100 09/16/16 11:30 09/16/16 16:06 09/16/16 14:20 09/16/16 11:30 09/16/16 11:30 General appearance: Present: no acute distress, well-nourished, other (anxious ) - EENT Eyes: Present: PERRL, EOM intact - Neck Neck: Present: supple, normal ROM - Respiratory Respiratory effort: normal Respiratory: bilateral: diminished, rhonchi (occasional) - Cardiovascular Rhythm: regular Heart Sounds: Present: S1 & S2 - Extremities Extremities: no ischemia, pulses intact, pulses symmetrical Peripheral Pulses: within normal limits - Abdominal General gastrointestinal: soft, non-tender, non-distended, normal bowel sounds - Integumentary Integumentary: Present: clear, warm - Psychiatric Psychiatric: appropriate mood/affect, cooperative - Neurologic Neurologic: CNII-XII intact, moves all extremities Results - Labs CBC & Chem 7: 09/16/16 06:22 09/11/16 05:47 Labs: Laboratory Last Values WBC 10.3 K/mm3 (4.5-11.0) 09/11/16 05:47 RBC 5.02 M/mm3 (3.65-5.03) 09/11/16 05:47 Hgb 10.5 gm/dl (11.8-15.2) L 09/16/16 06:22 Hct 33.7 % (35.5-45.6) L 09/16/16 06:22 MCV 69 fl (84-94) L 09/11/16 05:47 MCH 21 pg (28-32) L 09/11/16 05:47 MCHC 31 % (32-34) L 09/11/16 05:47 RDW 15.8 % (13.2-15.2) H 09/11/16 05:47 Plt Count 330 K/mm3 (140-440) 09/16/16 06:22 Lymph % (Auto) 10.9 % (13.4-35.0) L 09/11/16 05:47 [place] % (Auto) 9.4 % (0.0-7.3) H 09/11/16 05:47 Eos % (Auto) 0.8 % (0.0-4.3) 09/11/16 05:47 Baso % (Auto) 0.8 % (0.0-1.8) 09/11/16 05:47 Lymph # 1.1 K/mm3 (1.2-5.4) L 09/11/16 05:47 [place] # 1.0 K/mm3 (0.0-0.8) H 09/11/16 05:47 Eos # 0.1 K/mm3 (0.0-0.4) 09/11/16 05:47 Baso # 0.1 K/mm3 (0.0-0.1) 09/11/16 05:47 Seg Neutrophils % 78.1 % (40.0-70.0) H 09/11/16 05:47 Seg Neutrophils # 8.1 K/mm3 (1.8-7.7) H 09/11/16 05:47 PT 14.7 Sec. (12.2-14.9) 09/16/16 06:22 INR 1.16 (0.87-1.13) H 09/16/16 06:22 APTT 46.1 Sec. (24.2-36.6) H 09/16/16 06:22 D-Dimer 741.42 ng/mlDDU (0-234) H 09/08/16 13:14 Heparin Anti-Xa Level 0.49 U.I./ml (0.3-0.7) 09/15/16 06:28 POC ABG pH 7.412 (7.35-7.45) 09/09/16 18:09 POC ABG pCO2 42.1 (35-45) 09/09/16 18:09 POC ABG pO2 73 (80-105) L 09/09/16 18:09 POC ABG HCO3 26.8 09/09/16 18:09 POC ABG Total CO2 28 09/09/16 18:09 POC ABG O2 Sat 95 09/09/16 18:09 POC ABG Base Excess 2 09/09/16 18:09 VBG pH 7.369 (7.320-7.420) 09/07/16 17:50 FiO2 28 % 09/09/16 18:09 Sodium 141 mmol/L (137-145) 09/11/16 05:47 Potassium 3.7 mmol/L (3.6-5.0) 09/11/16 05:47 Chloride 99.9 mmol/L (98-107) 09/11/16 05:47 Carbon Dioxide 28 mmol/L (22-30) 09/11/16 05:47 Anion Gap 17 mmol/L 09/11/16 05:47 BUN 5 mg/dL (9-20) L 09/11/16 05:47 Creatinine 0.7 mg/dL (0.8-1.5) L 09/11/16 05:47 Estimated GFR > 60 ml/min 09/11/16 05:47 BUN/Creatinine Ratio 7.14 % 09/11/16 05:47 Glucose 121 mg/dL (75-100) H 09/11/16 05:47 POC Glucose 142 (70-105) H 09/16/16 15:30 Hemoglobin A1c 6.6 % (4-6) H 09/08/16 04:51 Lactic Acid 1.2 mmol/L (0.7-2.0) 09/09/16 03:59 Calcium 9.3 mg/dL (8.4-10.2) 09/11/16 05:47 Magnesium 1.8 mg/dL (1.7-2.3) 09/09/16 03:59 Total Bilirubin 0.4 mg/dL (0.1-1.2) 09/08/16 04:51 AST 16 units/L (5-40) 09/08/16 04:51 ALT 20 units/L (7-56) 09/08/16 04:51 Alkaline Phosphatase 82 units/L (35-129) 09/08/16 04:51 Lactate Dehydrogenase 208 units/L (91-180) H 09/10/16 03:49 Total Creatine Kinase 34 units/L (55-170) L 09/07/16 18:06 Troponin T < 0.010 ng/mL (0.00-0.029) 09/07/16 17:50 C-Reactive Protein 5.70 mg/dL (0.00-1.30) H 09/08/16 13:14 NT-Pro-B Natriuret Pep 547.2 pg/mL (0-900) 09/07/16 17:50 Total Protein 6.8 g/dL (6.3-8.2) 09/09/16 21:30 Albumin 2.9 g/dL (3.9-5) L 09/08/16 04:51 Albumin/Globulin Ratio 0.7 % 09/08/16 04:51 TSH 0.982 mlU/mL (0.270-4.200) 09/07/16 18:06 Free T4 1.12 ng/dL (0.76-1.46) 09/07/16 17:50 Fluid Total Protein 4.6 (15.0-45.0) L 09/12/16 12:46 Fluid LDH 172 09/12/16 12:46 Ketones 0.1 mmol/L (-0.28) 09/07/16 18:06
[2016-09-16] MEDS: INDOCIN PO SCH (19:39)
[2016-09-16] MEDS: HEPARIN/ 0.45% NACL-25,000 UNIT/500 ML 25,000 UNIT/500 ML BAG IV SCH (20:07)
[2016-09-16] MEDS: ZOCOR PO SCH (22:27)
[2016-09-17] MEDS: DUONEB 0.5 MG-3 MG/3 ML SOLN IH SCH ×4 (02:18→20:55)
[2016-09-17 07:05] LABS: Basophils % (Auto) 0.9 % (0.0-1.8); Eosinophils % (Auto) 1.1 % (0.0-4.3); Hematocrit 32.8 % (35.5-45.6); Hemoglobin 10.3 gm/dl (11.8-15.2); Mean Corpuscular HGB Conc 32 % (32-34); Platelet Count 335 K/mm3 (140-440); Red Blood Count 4.78 M/mm3 (3.65-5.03); Red Cell Distribution Width 16.3 % (13.2-15.2); White Blood Count 10.3 K/mm3 (4.5-11.0)
[2016-09-17 07:12] LABS: INR 1.16 (0.87-1.13); Mean Corpuscular Hemoglobin 22 pg (28-32); Mean Corpuscular Volume 69 fl (84-94)
[2016-09-17 07:13] LABS: Anion Gap 14 mmol/L; BUN/Creatinine Ratio 11.42; Blood Urea Nitrogen 8 mg/dL (9-20); Calcium 9.2 mg/dL (8.4-10.2); Carbon Dioxide 29 mmol/L (22-30); Chloride 103.1 mmol/L (98-107); Glucose 106 mg/dL (75-100); Potassium 3.7 mmol/L (3.6-5.0); Sodium 142 mmol/L (137-145)
[2016-09-17] MEDS: GLUCOTROL PO SCH (08:00)
--- NOTE | 2016-09-17 09:59 | Progress Note ---
Assessment and Plan Persistent Atrial fib/flutter, uncertain duration rate controlled on oral cardizem Left Pleural effusion Left lung Atelectasis s/p CT guided biopsy Diabetes mellitus Hypertension Echo revealing LVEF 45-50% Recommendations: Patient's atrial flutter is likely a chronic finding in the setting of his pulmonary disease. We will continue rate control with AV travis blocking agents. Long-term oral anticoagulation will be deferred until his left lung pathology is optimally worked up and treated. Restart coumadin after bronchoscopy. Subjective Date of service: 09/17/16 Principal diagnosis: Atrial Fib with RVR; Acute Hypoxemic Resp Failure Interval history: No cardiac events, patient is complaining of knee pain Objective Vital Signs Temp Pulse Pulse Pulse Resp Resp Resp 09/17/16 07:30 979 F H 62 20 09/17/16 05:26 98.6 F 64 18 09/16/16 21:00 09/16/16 20:59 79 20 09/16/16 20:48 77 18 09/16/16 20:39 108 H 20 09/16/16 20:38 20 09/16/16 20:02 98.2 F 89 18 09/16/16 19:41 99 H 09/16/16 16:06 110 H 09/16/16 16:05 110 H 09/16/16 16:04 110 H 09/16/16 16:00 97.7 F 85 18 09/16/16 14:20 92 H 16 09/16/16 14:00 90 16 09/16/16 11:30 98.4 F 84 18 09/16/16 10:00 102 H 20 BP Pulse Ox 09/17/16 07:30 123/78 91 09/17/16 05:26 130/86 99 09/16/16 21:00 99 09/16/16 20:59 09/16/16 20:48 09/16/16 20:39 96 09/16/16 20:38 09/16/16 20:02 137/86 99 09/16/16 19:41 09/16/16 16:06 09/16/16 16:05 09/16/16 16:04 09/16/16 16:00 111/72 98 09/16/16 14:20 09/16/16 14:00 09/16/16 11:30 128/72 100 09/16/16 10:00 - Physical Examination General: No Apparent Distress HEENT: Positive: PERRL Neck: Positive: trachea midline Cardiac: Positive: irregularly irregular Lungs: Positive: Decreased Breath Sounds Neuro: Positive: Grossly Intact - Labs and Meds Coagulation 09/17/16 Range/Units 06:11 PT 14.7 (12.2-14.9) Sec. INR 1.16 H (0.87-1.13) CBC 09/17/16 Range/Units 06:11 WBC 10.3 (4.5-11.0) K/mm3 RBC 4.78 (3.65-5.03) M/mm3 Hgb 10.3 L (11.8-15.2) gm/dl Hct 32.8 L (35.5-45.6) % Plt Count 335 (140-440) K/mm3 Lymph # 1.3 (1.2-5.4) K/mm3 [place] # 1.1 H (0.0-0.8) K/mm3 Eos # 0.1 (0.0-0.4) K/mm3 Baso # 0.1 (0.0-0.1) K/mm3 Comprehensive Metabolic Panel 09/17/16 Range/Units 06:11 Sodium 142 (137-145) mmol/L Potassium 3.7 (3.6-5.0) mmol/L Chloride 103.1 (98-107) mmol/L Carbon Dioxide 29 (22-30) mmol/L BUN 8 L (9-20) mg/dL Creatinine 0.7 L (0.8-1.5) mg/dL Glucose 106 H (75-100) mg/dL Calcium 9.2 (8.4-10.2) mg/dL - Imaging and Cardiology EKG: report reviewed (Afib with rvr)
[2016-09-17] MEDS: FLOMAX PO SCH (10:42)
[2016-09-17] MEDS: CARDIZEM CD PO SCH (10:52)
[2016-09-17] MEDS: COZAAR PO SCH (10:52)
[2016-09-17] MEDS: PERCOCET 5/325 PO PRN ×2 (10:53→18:00)
[2016-09-17] MEDS: PEPCID PO SCH (10:53)
--- NOTE | 2016-09-17 11:09 | Event Note ---
Date: 09/17/16
--- NOTE | 2016-09-17 11:09 | Procedure Note ---
Date of procedure: 09/17/16 Pre-op diagnosis: Left Lung Mass Post-op diagnosis: same Procedure: Fiberoptic bronchoscopy with washings, brushings and endobronchial biopsies ( Full dictation # [id number]) Please see dictated notes for full details Anesthesia: other (conscious sedation per anesthesia) Surgeon: LETTY OLSEN Estimated blood loss: minimal Pathology: list (Left Mainstem/CESAR opening endobronchial biopsies) Condition: stable Disposition: floor
[2016-09-17] MEDS ORDERED: XYLOCAINE 2% INFILTRATI ONE (12:37)
[2016-09-17] MEDS ORDERED: HURRICAINE ONE 20% TOPICAL SPRAY MM ×2 (12:38→15:18)
[2016-09-17] MEDS ORDERED: LIDOCAINE VISCOUS 2% ONE (12:38)
[2016-09-17] MEDS ORDERED: NACL 0.9% 1000 ML 1,000 ML ONE ×2 (12:41→14:16)
[2016-09-17] MEDS ORDERED: NEO SYNEPHRINE ONE (12:41)
[2016-09-17] MEDS ORDERED: WATER FOR IRRIG STERILE IR ONE (12:42)
[2016-09-17] MEDS ORDERED: XYLOCAINE 1% 20 mL ONE (12:42)
--- NOTE | 2016-09-17 14:10 | Anesthesia Consultation ---
Anesthesia Consult and Med Hx Date of service: 09/17/16 - Airway Anesthetic Teeth Evaluation: Poor (multiple missing and broken teeth) ROM Head & Neck: Adequate Mental/Hyoid Distance: Adequate Mallampati Class: Class III Intubation Access Assessment: Possibly Difficult - Pre-Operative Health Status ASA Pre-Surgery Classification: ASA3 Proposed Anesthetic Plan: MAC - Pulmonary Hx Smoking: Yes (former smoked) Hx Respiratory Symptoms: Yes (shortness of breath) Hx Pneumonia: Yes (Left pleural effusion, left lung mass?) - Cardiovascular System Hx Hypertension: Yes Hx Cardia Arrhythmia: Yes (atrial flutter) Hx Peripheral Vascular Disease: Yes (DVT) - Endocrine Hx Renal Disease: No (BPH) Hx Non-Insulin Dependent Diabetes: Yes (on insulin sliding scale) - Other Systems Hx Cancer: Yes (left lung mass?) Hx Obesity: Yes (BMI 36.6)
--- NOTE | 2016-09-17 14:13 | Anesthesia Day of Surgery ---
Anesthesia Day of Surgery - Day of Surgery Patient Examined: Yes Patient H&P Reviewed: Yes Patient is NPO: Yes
[2016-09-17] MEDS: NACL 0.9% 1000 ML 1,000 ML IV SCH ×2 (14:15→16:25)
[2016-09-17] MEDS ORDERED: DIPRIVAN 10 MG/ML IV ONE ×2 (14:15)
[2016-09-17] MEDS ORDERED: XYLOCAINE MPF 2% ONE (14:43)
[2016-09-17] MEDS ORDERED: ADRENALIN IR ONE (15:01)
[2016-09-17] MEDS ORDERED: LIDOCAINE VISCOUS 2% MM ONE ×9 (15:19→15:34)
--- NOTE | 2016-09-17 15:44 | Post Anesthesia Evaluation ---
- Post Anesthesia Evaluation Patient Participated: Yes Airway Patent: Yes Stable Respiratory Function: Yes Nausea/Vomiting: No Temp > 96.8F: Yes Pain Manageable: Yes Adequeate Hydration: Yes Anesthesia Complications: No
[2016-09-17] MEDS ORDERED: XYLOCAINE 1% 20 mL INFILTRATI ONE (15:51)
--- NOTE | 2016-09-17 18:45 | Progress Note ---
Assessment and Plan Assessment and plan: --Lung mass, s/p CT-guided biopsy, no malignancy reported Probably atelectasis Pulmonary following, Bronchoscopy today -Acute hypoxemic Respiratory failure Due to malignant pleural effusion as well as left-sided lung mass --Malignant pleural effusion, status post paracentesis Fluid analysis no malignancy reported --Left lung atelectasis, questionable pneumonia Continue IV antibiotics, chest PT bronchoscopy today --Atrial flutter , Rate Controlled on oral Cardizem, --Anticoagulation ; continue heparin drip Coumadin will be started once patient's pulmonary issues are resolved --Type 2 diabetes mellitus, on oral hypoglycemics Moderate control, Accu-Chek sliding scale coverage and ADA diet, and oral meds Hemoglobin A1c 6.6 --Right wrist pain and swelling Improved continue current management --Dyslipidemia; Continue current lipid-lowering medications --History of BPH, stable on Flomax --DVT prophylaxis, patient is already on heparin drip --CODE STATUS; full code Chest PT, if no improvement possible bronchoscopy per pulmonary Out of bed to chair and ambulate as tolerated, physical therapy Patient's condition treatment plan discussed in detail with the patient as well as the nurse History Interval history: Patient seen and evaluated medical records reviewed Patient scheduled for bronchoscopy today Denies chest pain or shortness of breath Alert awake oriented 3 not in acute distress Hospitalist Physical - Constitutional Vitals: Temp Pulse Resp BP Pulse Ox 97.6 F 87 20 129/74 87 09/17/16 16:41 09/17/16 16:41 09/17/16 16:41 09/17/16 16:41 09/17/16 16:41 General appearance: Present: no acute distress, well-nourished, other (anxious ) - EENT Eyes: Present: PERRL, EOM intact - Neck Neck: Present: supple, normal ROM - Respiratory Respiratory effort: normal Respiratory: bilateral: diminished, rhonchi - Cardiovascular Rhythm: regular Heart Sounds: Present: S1 & S2 - Extremities Extremities: no ischemia, pulses intact, pulses symmetrical Peripheral Pulses: within normal limits - Abdominal General gastrointestinal: soft, non-tender, non-distended, normal bowel sounds - Integumentary Integumentary: Present: clear, warm - Psychiatric Psychiatric: appropriate mood/affect, cooperative - Neurologic Neurologic: CNII-XII intact, moves all extremities Results - Labs CBC & Chem 7: 09/17/16 06:11 09/17/16 06:11 Labs: Laboratory Last Values WBC 10.3 K/mm3 (4.5-11.0) 09/17/16 06:11 RBC 4.78 M/mm3 (3.65-5.03) 09/17/16 06:11 Hgb 10.3 gm/dl (11.8-15.2) L 09/17/16 06:11 Hct 32.8 % (35.5-45.6) L 09/17/16 06:11 MCV 69 fl (84-94) L 09/17/16 06:11 MCH 22 pg (28-32) L 09/17/16 06:11 MCHC 32 % (32-34) 09/17/16 06:11 RDW 16.3 % (13.2-15.2) H 09/17/16 06:11 Plt Count 335 K/mm3 (140-440) 09/17/16 06:11 Lymph % (Auto) 12.4 % (13.4-35.0) L 09/17/16 06:11 [place] % (Auto) 10.8 % (0.0-7.3) H 09/17/16 06:11 Eos % (Auto) 1.1 % (0.0-4.3) 09/17/16 06:11 Baso % (Auto) 0.9 % (0.0-1.8) 09/17/16 06:11 Lymph # 1.3 K/mm3 (1.2-5.4) 09/17/16 06:11 [place] # 1.1 K/mm3 (0.0-0.8) H 09/17/16 06:11 Eos # 0.1 K/mm3 (0.0-0.4) 09/17/16 06:11 Baso # 0.1 K/mm3 (0.0-0.1) 09/17/16 06:11 Seg Neutrophils % 74.8 % (40.0-70.0) H 09/17/16 06:11 Seg Neutrophils # 7.7 K/mm3 (1.8-7.7) 09/17/16 06:11 PT 14.7 Sec. (12.2-14.9) 09/17/16 06:11 INR 1.16 (0.87-1.13) H 09/17/16 06:11 APTT 46.1 Sec. (24.2-36.6) H 09/16/16 06:22 D-Dimer 741.42 ng/mlDDU (0-234) H 09/08/16 13:14 Heparin Anti-Xa Level 0.49 U.I./ml (0.3-0.7) 09/16/16 19:06 POC ABG pH 7.412 (7.35-7.45) 09/09/16 18:09 POC ABG pCO2 42.1 (35-45) 09/09/16 18:09 POC ABG pO2 73 (80-105) L 09/09/16 18:09 POC ABG HCO3 26.8 09/09/16 18:09 POC ABG Total CO2 28 09/09/16 18:09 POC ABG O2 Sat 95 09/09/16 18:09 POC ABG Base Excess 2 09/09/16 18:09 VBG pH 7.369 (7.320-7.420) 09/07/16 17:50 FiO2 28 % 09/09/16 18:09 Sodium 142 mmol/L (137-145) 09/17/16 06:11 Potassium 3.7 mmol/L (3.6-5.0) 09/17/16 06:11 Chloride 103.1 mmol/L (98-107) 09/17/16 06:11 Carbon Dioxide 29 mmol/L (22-30) 09/17/16 06:11 Anion Gap 14 mmol/L 09/17/16 06:11 BUN 8 mg/dL (9-20) L 09/17/16 06:11 Creatinine 0.7 mg/dL (0.8-1.5) L 09/17/16 06:11 Estimated GFR > 60 ml/min 09/17/16 06:11 BUN/Creatinine Ratio 11.42 % 09/17/16 06:11 Glucose 106 mg/dL (75-100) H 09/17/16 06:11 POC Glucose 161 (70-105) H 09/17/16 17:20 Hemoglobin A1c 6.6 % (4-6) H 09/08/16 04:51 Lactic Acid 1.2 mmol/L (0.7-2.0) 09/09/16 03:59 Calcium 9.2 mg/dL (8.4-10.2) 09/17/16 06:11 Magnesium 1.8 mg/dL (1.7-2.3) 09/09/16 03:59 Total Bilirubin 0.4 mg/dL (0.1-1.2) 09/08/16 04:51 AST 16 units/L (5-40) 09/08/16 04:51 ALT 20 units/L (7-56) 09/08/16 04:51 Alkaline Phosphatase 82 units/L (35-129) 09/08/16 04:51 Lactate Dehydrogenase 208 units/L (91-180) H 09/10/16 03:49 Total Creatine Kinase 34 units/L (55-170) L 09/07/16 18:06 Troponin T < 0.010 ng/mL (0.00-0.029) 09/07/16 17:50 C-Reactive Protein 5.70 mg/dL (0.00-1.30) H 09/08/16 13:14 NT-Pro-B Natriuret Pep 547.2 pg/mL (0-900) 09/07/16 17:50 Total Protein 6.8 g/dL (6.3-8.2) 09/09/16 21:30 Albumin 2.9 g/dL (3.9-5) L 09/08/16 04:51 Albumin/Globulin Ratio 0.7 % 09/08/16 04:51 TSH 0.982 mlU/mL (0.270-4.200) 09/07/16 18:06 Free T4 1.12 ng/dL (0.76-1.46) 09/07/16 17:50 Fluid Total Protein 4.6 (15.0-45.0) L 09/12/16 12:46 Fluid LDH 172 09/12/16 12:46 Ketones 0.1 mmol/L (-0.28) 09/07/16 18:06
--- NOTE | 2016-09-17 19:09 | Operative Report ---
PROCEDURE: Fiberoptic bronchoscopy with endobronchial biopsies, brushings and washings. CONSENT: Informed and witnessed. INDICATION: Left lung atelectasis, suspicious for endobronchial tumor. COMPLICATIONS: No immediate procedural complications were noted. ESTIMATED BLOOD LOSS: About 10 mL. ANESTHESIA: Anesthesia was on board to provide conscious sedation throughout the whole procedure. DESCRIPTION OF PROCEDURE: After informed and witnessed consent as well as premedication, fiberoptic bronchoscope was passed through the right nostril into the nasopharynx and advanced distally into the hypopharyngeal regions. Vocal cords were located. They were both bilaterally mobile. Topical lidocaine total of about 4 mL were applied at the vocal cords. The airway was then entered. There were no gross endotracheal lesions, very floppy airways with significant bowing of the posterior tracheal wall. Amie was located. Topical lidocaine was applied at the amie. The right bronchial tree was briefly surveyed. Right upper lobe, right middle lobe and basilar segments of the lower lobe were all free of endobronchial tumor. Fiberoptic bronchoscope was withdrawn to the amie. From the level of the amie a little distally, about 2-3 cm into the left mainstem I could see a lesion, which seemed to completely occlude the opening into the left upper lobe and infiltrate the bronchial wall. Attempts to try and navigate the fiberoptic bronchoscope to get into the basilar segments was met with bleeding from the tumor. Topical epinephrine was applied over the tumor, 1:10,000, 3 mL. Endobronchial biopsies were taken from there. It was a little difficult to differentiate tumor from endobronchial wall, so I tried to take endobronchial biopsies from at least a couple of sites in the area of infiltration. Brushings were then taken and endobronchial washings were taken. The fiberoptic bronchoscope was withdrawn again after application of another 3 mL of 1:10,000 epinephrine to maintain hemostasis. Fiberoptic bronchoscope was then withdrawn again through bilaterally mobile vocal cords. The patient tolerated the procedure well. RECOMMENDATIONS: 1. Follow up on the cytology of the brushings and endobronchial washings. 2. Follow up on pathology of the biopsies. JOB# [id number] MESSI/SHAD
[2016-09-17] MEDS: ZOCOR PO SCH (22:55)
[2016-09-18 05:10] LABS: Basophils % (Auto) 1.1 % (0.0-1.8); Eosinophils % (Auto) 1.1 % (0.0-4.3); Hematocrit 32.6 % (35.5-45.6); Hemoglobin 10.3 gm/dl (11.8-15.2); Mean Corpuscular HGB Conc 32 % (32-34); Red Blood Count 4.79 M/mm3 (3.65-5.03); Red Cell Distribution Width 16.2 % (13.2-15.2); White Blood Count 11.3 K/mm3 (4.5-11.0)
[2016-09-18 05:18] LABS: INR 1.18 (0.87-1.13)
[2016-09-18 05:32] LABS: Anion Gap 19 mmol/L; Blood Urea Nitrogen 7 mg/dL (9-20); Calcium 9.2 mg/dL (8.4-10.2); Carbon Dioxide 25 mmol/L (22-30); Chloride 102.4 mmol/L (98-107); Glucose 112 mg/dL (75-100); Potassium 4.2 mmol/L (3.6-5.0); Sodium 142 mmol/L (137-145)
[2016-09-18 05:37] LABS: Mean Corpuscular Hemoglobin 22 pg (28-32); Mean Corpuscular Volume 68 fl (84-94); Platelet Count 332 K/mm3 (140-440)
[2016-09-18] MEDS: DUONEB 0.5 MG-3 MG/3 ML SOLN IH SCH ×4 (06:37→20:52)
[2016-09-18] MEDS: NACL 0.9% 1000 ML 1,000 ML IV SCH (07:19)
[2016-09-18] MEDS: PEPCID PO SCH (10:09)
[2016-09-18] MEDS: FLOMAX PO SCH (10:09)
[2016-09-18] MEDS: COZAAR PO SCH (10:09)
[2016-09-18] MEDS: CARDIZEM CD PO SCH (10:09)
[2016-09-18] MEDS: PERCOCET 5/325 PO PRN ×2 (10:09→16:11)
[2016-09-18] MEDS: GLUCOTROL PO SCH (10:17)
--- NOTE | 2016-09-18 11:32 | Progress Note ---
Subjective Date of service: 09/18/16 Principal diagnosis: Atrial Fib with RVR; Acute Hypoxemic Resp Failure Interval history: Persistent Atrial fib/flutter, uncertain duration rate controlled on oral cardizem Left Pleural effusion Left lung Atelectasis s/p CT guided biopsy Diabetes mellitus Hypertension Echo revealing LVEF 45-50% Recommendations: Patient's atrial flutter is likely a chronic finding in the setting of his pulmonary disease. We will continue rate control with AV travis blocking agents. Long-term oral anticoagulation will be deferred until his left lung pathology is optimally worked up and treated. Objective Vital Signs Temp Pulse Pulse Pulse Pulse Pulse Pulse 09/18/16 08:40 98.0 F 94 H 09/18/16 04:00 98.1 F 77 09/18/16 00:00 98.3 F 127 H 09/17/16 21:10 100 H 09/17/16 20:56 83 09/17/16 20:30 94 H 09/17/16 20:00 97.9 F 105 H 105 H 09/17/16 19:13 96 H 09/17/16 19:00 09/17/16 16:41 97.6 F 87 09/17/16 15:59 97.6 F 78 09/17/16 15:45 97 H 09/17/16 15:31 112 H 09/17/16 15:16 97.2 F L 101 H 09/17/16 14:04 98.0 F 97 H 09/17/16 13:55 98.0 F 97 H Resp Resp Resp BP BP Pulse Ox 09/18/16 08:40 20 135/86 97 09/18/16 04:00 18 105/66 98 09/18/16 00:00 18 178/91 98 09/17/16 21:10 20 09/17/16 20:56 20 98 09/17/16 20:30 20 20 99 09/17/16 20:00 18 115/76 96 09/17/16 19:13 09/17/16 19:00 22 09/17/16 16:41 20 129/74 87 09/17/16 15:59 24 117/75 98 09/17/16 15:45 32 H 87/66 96 09/17/16 15:31 18 87/60 98 09/17/16 15:16 20 97/61 98 09/17/16 14:04 23 139/89 100 09/17/16 13:55 23 139/ 100 - Physical Examination General: No Apparent Distress HEENT: Positive: PERRL Neck: Positive: trachea midline Cardiac: Positive: Irregularly Regular, S1/S2 Lungs: Positive: Normal Exam Neuro: Positive: Grossly Intact - Labs and Meds Coagulation 09/18/16 Range/Units 04:21 PT 14.9 (12.2-14.9) Sec. INR 1.18 H (0.87-1.13) CBC 09/18/16 Range/Units 04:21 WBC 11.3 H (4.5-11.0) K/mm3 RBC 4.79 (3.65-5.03) M/mm3 Hgb 10.3 L (11.8-15.2) gm/dl Hct 32.6 L (35.5-45.6) % Plt Count 332 (140-440) K/mm3 Lymph # 1.5 (1.2-5.4) K/mm3 [place] # 1.0 H (0.0-0.8) K/mm3 Eos # 0.1 (0.0-0.4) K/mm3 Baso # 0.1 (0.0-0.1) K/mm3 Comprehensive Metabolic Panel 09/18/16 Range/Units 04:21 Sodium 142 (137-145) mmol/L Potassium 4.2 (3.6-5.0) mmol/L Chloride 102.4 (98-107) mmol/L Carbon Dioxide 25 (22-30) mmol/L BUN 7 L (9-20) mg/dL Creatinine 0.7 L (0.8-1.5) mg/dL Glucose 112 H (75-100) mg/dL Calcium 9.2 (8.4-10.2) mg/dL - Imaging and Cardiology EKG: report reviewed (Afib with rvr)
--- NOTE | 2016-09-18 11:50 | Progress Note ---
Assessment and Plan Assessment and plan: -Status post bronchoscopy, needle biopsy pending report --Lung mass, s/p CT-guided biopsy, no malignancy reported -Acute hypoxemic Respiratory failure Due to malignant pleural effusion as well as left-sided lung mass --Malignant pleural effusion, status post paracentesis Fluid analysis no malignancy reported --Atrial flutter , Rate Controlled on oral Cardizem, --Anticoagulation ; continue heparin drip Coumadin will be started once patient's pulmonary issues are resolved --Type 2 diabetes mellitus, on oral hypoglycemics Moderate control, Accu-Chek sliding scale coverage and ADA diet, and oral meds Hemoglobin A1c 6.6 --Dyslipidemia; Continue current lipid-lowering medications --History of BPH, stable on Flomax --DVT prophylaxis, patient is already on heparin drip Ambulate as tolerated Disposition plan discharge per pulmonology Patient's condition treatment plan discussed in detail with the patient as well as his nurse Consults recommendations noted History Interval history: patient seen and evaluated medical records reviewed No new events reported by the nursing staff patient denies chest pain or shortness of breath, alert awake oriented 3 not in acute distress Hospitalist Physical - Constitutional Vitals: Temp Pulse Resp BP Pulse Ox 98.0 F 94 H 20 135/86 97 09/18/16 08:40 09/18/16 08:40 09/18/16 08:40 09/18/16 08:40 09/18/16 08:40 General appearance: Present: no acute distress, well-nourished - EENT Eyes: Present: PERRL, EOM intact - Neck Neck: Present: supple, normal ROM - Respiratory Respiratory effort: normal Respiratory: bilateral: diminished, rhonchi - Cardiovascular Rhythm: regular Heart Sounds: Present: S1 & S2 - Extremities Extremities: no ischemia, pulses intact, pulses symmetrical Peripheral Pulses: within normal limits - Abdominal General gastrointestinal: soft, non-tender, non-distended, normal bowel sounds - Integumentary Integumentary: Present: clear, warm - Psychiatric Psychiatric: appropriate mood/affect, cooperative - Neurologic Neurologic: CNII-XII intact, moves all extremities Results - Labs CBC & Chem 7: 09/18/16 04:21 09/18/16 04:21 Labs: Laboratory Last Values WBC 11.3 K/mm3 (4.5-11.0) H 09/18/16 04:21 RBC 4.79 M/mm3 (3.65-5.03) 09/18/16 04:21 Hgb 10.3 gm/dl (11.8-15.2) L 09/18/16 04:21 Hct 32.6 % (35.5-45.6) L 09/18/16 04:21 MCV 68 fl (84-94) L 09/18/16 04:21 MCH 22 pg (28-32) L 09/18/16 04:21 MCHC 32 % (32-34) 09/18/16 04:21 RDW 16.2 % (13.2-15.2) H 09/18/16 04:21 Plt Count 332 K/mm3 (140-440) 09/18/16 04:21 Lymph % (Auto) 13.6 % (13.4-35.0) 09/18/16 04:21 [place] % (Auto) 9.2 % (0.0-7.3) H 09/18/16 04:21 Eos % (Auto) 1.1 % (0.0-4.3) 09/18/16 04:21 Baso % (Auto) 1.1 % (0.0-1.8) 09/18/16 04:21 Lymph # 1.5 K/mm3 (1.2-5.4) 09/18/16 04:21 [place] # 1.0 K/mm3 (0.0-0.8) H 09/18/16 04:21 Eos # 0.1 K/mm3 (0.0-0.4) 09/18/16 04:21 Baso # 0.1 K/mm3 (0.0-0.1) 09/18/16 04:21 Seg Neutrophils % 75.0 % (40.0-70.0) H 09/18/16 04:21 Seg Neutrophils # 8.5 K/mm3 (1.8-7.7) H 09/18/16 04:21 PT 14.9 Sec. (12.2-14.9) 09/18/16 04:21 INR 1.18 (0.87-1.13) H 09/18/16 04:21 APTT 46.1 Sec. (24.2-36.6) H 09/16/16 06:22 D-Dimer 741.42 ng/mlDDU (0-234) H 09/08/16 13:14 Heparin Anti-Xa Level < 0.10 U.I./ml (0.3-0.7) L 09/17/16 17:40 POC ABG pH 7.412 (7.35-7.45) 09/09/16 18:09 POC ABG pCO2 42.1 (35-45) 09/09/16 18:09 POC ABG pO2 73 (80-105) L 09/09/16 18:09 POC ABG HCO3 26.8 09/09/16 18:09 POC ABG Total CO2 28 09/09/16 18:09 POC ABG O2 Sat 95 09/09/16 18:09 POC ABG Base Excess 2 09/09/16 18:09 VBG pH 7.369 (7.320-7.420) 09/07/16 17:50 FiO2 28 % 09/09/16 18:09 Sodium 142 mmol/L (137-145) 09/18/16 04:21 Potassium 4.2 mmol/L (3.6-5.0) 09/18/16 04:21 Chloride 102.4 mmol/L (98-107) 09/18/16 04:21 Carbon Dioxide 25 mmol/L (22-30) 09/18/16 04:21 Anion Gap 19 mmol/L 09/18/16 04:21 BUN 7 mg/dL (9-20) L 09/18/16 04:21 Creatinine 0.7 mg/dL (0.8-1.5) L 09/18/16 04:21 Estimated GFR > 60 ml/min 09/18/16 04:21 BUN/Creatinine Ratio 10.00 % 09/18/16 04:21 Glucose 112 mg/dL (75-100) H 09/18/16 04:21 POC Glucose 130 (70-105) H 09/18/16 08:40 Hemoglobin A1c 6.6 % (4-6) H 09/08/16 04:51 Lactic Acid 1.2 mmol/L (0.7-2.0) 09/09/16 03:59 Calcium 9.2 mg/dL (8.4-10.2) 09/18/16 04:21 Magnesium 1.8 mg/dL (1.7-2.3) 09/09/16 03:59 Total Bilirubin 0.4 mg/dL (0.1-1.2) 09/08/16 04:51 AST 16 units/L (5-40) 09/08/16 04:51 ALT 20 units/L (7-56) 09/08/16 04:51 Alkaline Phosphatase 82 units/L (35-129) 09/08/16 04:51 Lactate Dehydrogenase 208 units/L (91-180) H 09/10/16 03:49 Total Creatine Kinase 34 units/L (55-170) L 09/07/16 18:06 Troponin T < 0.010 ng/mL (0.00-0.029) 09/07/16 17:50 C-Reactive Protein 5.70 mg/dL (0.00-1.30) H 09/08/16 13:14 NT-Pro-B Natriuret Pep 547.2 pg/mL (0-900) 09/07/16 17:50 Total Protein 6.8 g/dL (6.3-8.2) 09/09/16 21:30 Albumin 2.9 g/dL (3.9-5) L 09/08/16 04:51 Albumin/Globulin Ratio 0.7 % 09/08/16 04:51 TSH 0.982 mlU/mL (0.270-4.200) 09/07/16 18:06 Free T4 1.12 ng/dL (0.76-1.46) 09/07/16 17:50 Fluid Total Protein 4.6 (15.0-45.0) L 09/12/16 12:46 Fluid LDH 172 09/12/16 12:46 Ketones 0.1 mmol/L (-0.28) 09/07/16 18:06
--- NOTE | 2016-09-18 14:11 | Progress Note ---
Assessment and Plan Patient alert, awake, Oriented. No acute respiratory distress.O2 satuaration 95% .On 2 litres O2.No pneumothorax reported post percutaneous needle biopsy of lung.Reported lopacification left lower lung .Percutaneous needle biopsy of chest results pending. Patient undergone bronchoscopy yesterday.Patient stable post bronchoscopy.Bronchoscopy specimen results pending. Resting on 2 litres O2. O2 satuaration 98%. - Patient Problems (1) Mass of left lung Current Visit: Yes Status: Acute Plan to address problem: Patient undergone percutaneous needle biopsy of left chest lesion. No malignancy reported. (2) Acute hypoxemic respiratory failure Current Visit: Yes Status: Acute Plan to address problem: O2 supplementation 2 litres. Albuterol/atrovent aerosol treatments q 6 hours. (3) Pleural effusion, left Current Visit: Yes Status: Acute Plan to address problem: S/P left thoracentesis. Pleural fluid Protien 4.6, LDH 172 Pleural fluid is exudate. Pleural fluid cytology reported negative for malignant cells. (4) Atelectasis of left lung Current Visit: Yes Status: Acute Plan to address problem: Albuterol/atrovent aerosol treatments q 6 hours. Incentive spirometry Chest PT. Patient undergone bronchoscopy today Bronchoscopy specimen results pending. Subjective Principal diagnosis: Atrial Fib with RVR; Acute Hypoxemic Resp Failure Interval history: Patient alert, awake, Oriented. No acute respiratory distress.O2 satuaration 95% .On 2 litres O2.No pneumothorax reported post percutaneous needle biopsy of lung.Reported opacification left lower lung .Percutaneous needle biopsy reported no malignancy.Pleural fluid cytology also reported no malignant cells. Patient undergone bronchoscopy yesterday.Patient stable post bronchoscopy.Bronchoscopy specimen results pending. Resting on 2 litres O2. O2 satuaration 98%. Objective Vital Signs - 12hr 09/18/16 09/18/16 09/18/16 04:00 08:40 08:43 Temperature 98.1 F 98.0 F Pulse Rate Pulse Rate [ 85 Anterior Bilateral Throughout] Pulse Rate [ 77 From Monitor] Pulse Rate [ 94 H Left Radial] Respiratory 18 20 Rate Respiratory 20 Rate [Anterior Bilateral Throughout] Blood Pressure 105/66 135/86 [Left Arm] O2 Sat by Pulse 98 97 98 Oximetry 09/18/16 09/18/16 08:53 10:00 Temperature Pulse Rate 85 Pulse Rate [ 88 Anterior Bilateral Throughout] Pulse Rate [ From Monitor] Pulse Rate [ Left Radial] Respiratory 20 Rate Respiratory 20 Rate [Anterior Bilateral Throughout] Blood Pressure [Left Arm] O2 Sat by Pulse 98 Oximetry Constitutional: no acute distress, alert Eyes: non-icteric ENT: oropharynx moist Neck: supple, no lymphadenopathy Effort: normal Ascultation: Left: diminished breath sounds, Bilateral: rhonchi (posterior bases ) Cardiovascular: irregular rhythm Gastrointestinal: normoactive bowel sounds, soft, non-tender, non-distended Integumentary: normal Extremities: no cyanosis, no edema, pulses normal, no ischemia or petechiae Neurologic: normal mental status, non-focal exam, pupils equal and round, motor strength normal and Psychiatric: mood appropriate, affect normal CBC and BMP: 09/18/16 04:21 09/18/16 04:21 ABG, PT/INR, D-dimer: ABG POC ABG pH 7.412 (7.35-7.45) 09/09/16 18:09 POC ABG pCO2 42.1 (35-45) 09/09/16 18:09 POC ABG pO2 73 (80-105) L 09/09/16 18:09 POC ABG HCO3 26.8 09/09/16 18:09 POC ABG Total CO2 28 09/09/16 18:09 POC ABG O2 Sat 95 09/09/16 18:09 PT/INR, D-dimer PT 14.9 Sec. (12.2-14.9) 09/18/16 04:21 INR 1.18 (0.87-1.13) H 09/18/16 04:21 D-Dimer 741.42 ng/mlDDU (0-234) H 09/08/16 13:14 Abnormal lab findings: Abnormal Labs 09/07/16 09/07/16 09/08/16 22:28 23:36 04:51 WBC Hgb 10.3 L Hct 33.2 L MCV 70 L MCH 22 L MCHC 31 L RDW 15.8 H Lymph % (Auto) [place] % (Auto) 11.2 H Lymph # [place] # 1.1 H Seg Neutrophils % Seg Neutrophils # PT INR APTT D-Dimer Heparin Anti-Xa Level POC ABG pO2 BUN Creatinine Glucose POC Glucose 121 H 119 H Hemoglobin A1c Lactic Acid Lactate Dehydrogenase C-Reactive Protein Albumin Fluid Total Protein 09/08/16 09/08/16 09/08/16 04:51 04:51 07:42 WBC Hgb Hct MCV MCH MCHC RDW Lymph % (Auto) [place] % (Auto) Lymph # [place] # Seg Neutrophils % Seg Neutrophils # PT INR APTT D-Dimer Heparin Anti-Xa Level POC ABG pO2 BUN 7 L Creatinine Glucose 133 H POC Glucose 118 H Hemoglobin A1c 6.6 H Lactic Acid Lactate Dehydrogenase C-Reactive Protein Albumin 2.9 L Fluid Total Protein 09/08/16 09/08/16 09/08/16 13:14 13:14 13:14 WBC Hgb Hct MCV MCH MCHC RDW Lymph % (Auto) [place] % (Auto) Lymph # [place] # Seg Neutrophils % Seg Neutrophils # PT INR APTT D-Dimer 741.42 H Heparin Anti-Xa Level POC ABG pO2 BUN Creatinine Glucose POC Glucose Hemoglobin A1c Lactic Acid 2.5 H* Lactate Dehydrogenase C-Reactive Protein 5.70 H Albumin Fluid Total Protein 09/08/16 09/08/16 09/09/16 15:50 21:42 03:59 WBC Hgb Hct MCV MCH MCHC RDW Lymph % (Auto) [place] % (Auto) Lymph # [place] # Seg Neutrophils % Seg Neutrophils # PT INR APTT D-Dimer Heparin Anti-Xa Level POC ABG pO2 BUN 6 L Creatinine 0.7 L Glucose POC Glucose 69 L 69 L Hemoglobin A1c Lactic Acid Lactate Dehydrogenase C-Reactive Protein Albumin Fluid Total Protein 09/09/16 09/09/16 09/10/16 07:39 18:09 03:49 WBC Hgb 10.7 L Hct 33.9 L MCV MCH MCHC RDW Lymph % (Auto) [place] % (Auto) Lymph # [place] # Seg Neutrophils % Seg Neutrophils # PT INR APTT D-Dimer Heparin Anti-Xa Level POC ABG pO2 73 L BUN Creatinine Glucose POC Glucose 106 H Hemoglobin A1c Lactic Acid Lactate Dehydrogenase C-Reactive Protein Albumin Fluid Total Protein 09/10/16 09/10/16 09/10/16 03:49 08:06 11:02 WBC Hgb Hct MCV MCH MCHC RDW Lymph % (Auto) [place] % (Auto) Lymph # [place] # Seg Neutrophils % Seg Neutrophils # PT INR APTT D-Dimer Heparin Anti-Xa Level POC ABG pO2 BUN Creatinine Glucose POC Glucose 123 H 121 H Hemoglobin A1c Lactic Acid Lactate Dehydrogenase 208 H C-Reactive Protein Albumin Fluid Total Protein 09/10/16 09/10/16 09/10/16 12:14 15:52 21:11 WBC Hgb Hct MCV MCH MCHC RDW Lymph % (Auto) [place] % (Auto) Lymph # [place] # Seg Neutrophils % Seg Neutrophils # PT 15.6 H INR 1.25 H APTT D-Dimer Heparin Anti-Xa Level POC ABG pO2 BUN Creatinine Glucose POC Glucose 162 H 156 H Hemoglobin A1c Lactic Acid Lactate Dehydrogenase C-Reactive Protein Albumin Fluid Total Protein 09/10/16 09/10/16 09/11/16 22:58 23:47 05:47 WBC Hgb 10.7 L Hct 34.7 L MCV 69 L MCH 21 L MCHC 31 L RDW 15.8 H Lymph % (Auto) 10.9 L [place] % (Auto) 9.4 H Lymph # 1.1 L [place] # 1.0 H Seg Neutrophils % 78.1 H Seg Neutrophils # 8.1 H PT INR APTT D-Dimer Heparin Anti-Xa Level 0.25 L POC ABG pO2 BUN Creatinine Glucose POC Glucose 141 H Hemoglobin A1c Lactic Acid Lactate Dehydrogenase C-Reactive Protein Albumin Fluid Total Protein 09/11/16 09/11/16 09/11/16 05:47 05:47 08:31 WBC Hgb Hct MCV MCH MCHC RDW Lymph % (Auto) [place] % (Auto) Lymph # [place] # Seg Neutrophils % Seg Neutrophils # PT INR APTT D-Dimer Heparin Anti-Xa Level 0.16 L POC ABG pO2 BUN 5 L Creatinine 0.7 L Glucose 121 H POC Glucose 111 H Hemoglobin A1c Lactic Acid Lactate Dehydrogenase C-Reactive Protein Albumin Fluid Total Protein 09/11/16 09/11/16 09/11/16 12:33 13:46 16:58 WBC Hgb Hct MCV MCH MCHC RDW Lymph % (Auto) [place] % (Auto) Lymph # [place] # Seg Neutrophils % Seg Neutrophils # PT INR APTT D-Dimer Heparin Anti-Xa Level < 0.10 L POC ABG pO2 BUN Creatinine Glucose POC Glucose 135 H 69 L Hemoglobin A1c Lactic Acid Lactate Dehydrogenase C-Reactive Protein Albumin Fluid Total Protein 09/12/16 09/12/16 09/12/16 07:52 10:12 11:39 WBC Hgb Hct MCV MCH MCHC RDW Lymph % (Auto) [place] % (Auto) Lymph # [place] # Seg Neutrophils % Seg Neutrophils # PT INR 1.17 H APTT D-Dimer Heparin Anti-Xa Level POC ABG pO2 BUN Creatinine Glucose POC Glucose 112 H 110 H Hemoglobin A1c Lactic Acid Lactate Dehydrogenase C-Reactive Protein Albumin Fluid Total Protein 09/12/16 09/12/16 09/12/16 12:46 17:07 22:36 WBC Hgb Hct MCV MCH MCHC RDW Lymph % (Auto) [place] % (Auto) Lymph # [place] # Seg Neutrophils % Seg Neutrophils # PT INR APTT D-Dimer Heparin Anti-Xa Level POC ABG pO2 BUN Creatinine Glucose POC Glucose 115 H 171 H Hemoglobin A1c Lactic Acid Lactate Dehydrogenase C-Reactive Protein Albumin Fluid Total Protein 4.6 L 09/12/16 09/13/16 09/13/16 23:10 12:40 18:35 WBC Hgb Hct MCV MCH MCHC RDW Lymph % (Auto) [place] % (Auto) Lymph # [place] # Seg Neutrophils % Seg Neutrophils # PT INR APTT D-Dimer Heparin Anti-Xa Level < 0.10 L POC ABG pO2 BUN Creatinine Glucose POC Glucose 142 H 123 H Hemoglobin A1c Lactic Acid Lactate Dehydrogenase C-Reactive Protein Albumin Fluid Total Protein 09/13/16 09/14/16 09/14/16 22:32 06:54 07:29 WBC Hgb 10.3 L Hct 32.4 L D MCV MCH MCHC RDW Lymph % (Auto) [place] % (Auto) Lymph # [place] # Seg Neutrophils % Seg Neutrophils # PT INR APTT D-Dimer Heparin Anti-Xa Level POC ABG pO2 BUN Creatinine Glucose POC Glucose 121 H 133 H Hemoglobin A1c Lactic Acid Lactate Dehydrogenase C-Reactive Protein Albumin Fluid Total Protein 09/14/16 09/15/16 09/15/16 11:28 07:36 21:37 WBC Hgb Hct MCV MCH MCHC RDW Lymph % (Auto) [place] % (Auto) Lymph # [place] # Seg Neutrophils % Seg Neutrophils # PT INR APTT D-Dimer Heparin Anti-Xa Level POC ABG pO2 BUN Creatinine Glucose POC Glucose 112 H 111 H 115 H Hemoglobin A1c Lactic Acid Lactate Dehydrogenase C-Reactive Protein Albumin Fluid Total Protein 09/16/16 09/16/16 09/16/16 06:22 06:22 07:32 WBC Hgb 10.5 L Hct 33.7 L MCV MCH MCHC RDW Lymph % (Auto) [place] % (Auto) Lymph # [place] # Seg Neutrophils % Seg Neutrophils # PT INR 1.16 H APTT 46.1 H D-Dimer Heparin Anti-Xa Level POC ABG pO2 BUN Creatinine Glucose POC Glucose 113 H Hemoglobin A1c Lactic Acid Lactate Dehydrogenase C-Reactive Protein Albumin Fluid Total Protein 09/16/16 09/16/16 09/17/16 11:30 15:30 06:11 WBC Hgb Hct MCV MCH MCHC RDW Lymph % (Auto) [place] % (Auto) Lymph # [place] # Seg Neutrophils % Seg Neutrophils # PT INR 1.16 H APTT D-Dimer Heparin Anti-Xa Level POC ABG pO2 BUN Creatinine Glucose POC Glucose 120 H 142 H Hemoglobin A1c Lactic Acid Lactate Dehydrogenase C-Reactive Protein Albumin Fluid Total Protein 09/17/16 09/17/16 09/17/16 06:11 06:11 17:20 WBC Hgb 10.3 L Hct 32.8 L MCV 69 L MCH 22 L MCHC RDW 16.3 H Lymph % (Auto) 12.4 L [place] % (Auto) 10.8 H Lymph # [place] # 1.1 H Seg Neutrophils % 74.8 H Seg Neutrophils # PT INR APTT D-Dimer Heparin Anti-Xa Level POC ABG pO2 BUN 8 L Creatinine 0.7 L Glucose 106 H POC Glucose 161 H Hemoglobin A1c Lactic Acid Lactate Dehydrogenase C-Reactive Protein Albumin Fluid Total Protein 09/17/16 09/18/16 09/18/16 17:40 04:21 04:21 WBC 11.3 H Hgb 10.3 L Hct 32.6 L MCV 68 L MCH 22 L MCHC RDW 16.2 H Lymph % (Auto) [place] % (Auto) 9.2 H Lymph # [place] # 1.0 H Seg Neutrophils % 75.0 H Seg Neutrophils # 8.5 H PT INR 1.18 H APTT D-Dimer Heparin Anti-Xa Level < 0.10 L POC ABG pO2 BUN Creatinine Glucose POC Glucose Hemoglobin A1c Lactic Acid Lactate Dehydrogenase C-Reactive Protein Albumin Fluid Total Protein 09/18/16 09/18/16 09/18/16 04:21 08:40 12:19 WBC Hgb Hct MCV MCH MCHC RDW Lymph % (Auto) [place] % (Auto) Lymph # [place] # Seg Neutrophils % Seg Neutrophils # PT INR APTT D-Dimer Heparin Anti-Xa Level POC ABG pO2 BUN 7 L Creatinine 0.7 L Glucose 112 H POC Glucose 130 H 286 H Hemoglobin A1c Lactic Acid Lactate Dehydrogenase C-Reactive Protein Albumin Fluid Total Protein
[2016-09-18] MEDS: ZOCOR PO SCH (22:15)
[2016-09-19] MEDS: DUONEB 0.5 MG-3 MG/3 ML SOLN IH SCH ×4 (01:10→19:36)
[2016-09-19] MEDS: NACL 0.9% 1000 ML 1,000 ML IV SCH ×2 (02:54→21:40)
[2016-09-19 09:28] LABS: INR 1.17 (0.87-1.13)
[2016-09-19] MEDS: COZAAR PO SCH (10:10)
[2016-09-19] MEDS: FLOMAX PO SCH (10:11)
[2016-09-19] MEDS: CARDIZEM CD PO SCH (10:12)
[2016-09-19] MEDS: APRESOLINE PO PRN (10:13)
[2016-09-19] MEDS: GLUCOTROL PO SCH (10:14)
[2016-09-19] MEDS: PEPCID PO SCH (10:14)
--- NOTE | 2016-09-19 11:12 | Progress Note ---
Subjective Date of service: 09/19/16 Principal diagnosis: Atrial Fib with RVR; Acute Hypoxemic Resp Failure Interval history: Persistent Atrial fib/flutter, uncertain duration rate controlled on oral cardizem Left Pleural effusion Left lung Atelectasis s/p CT guided biopsy Diabetes mellitus Hypertension Echo revealing LVEF 45-50% Recommendations: Patient's atrial flutter is likely a chronic finding in the setting of his pulmonary disease. We will continue rate control with AV travis blocking agents. Long-term oral anticoagulation will be deferred until his left lung pathology is optimally worked up and treated. Objective Vital Signs Temp Pulse Pulse Pulse Pulse Pulse Resp 09/19/16 10:13 09/19/16 10:12 09/19/16 10:10 09/19/16 09:20 97.8 F 62 22 09/19/16 08:07 84 09/19/16 05:40 98.0 F 107 H 18 09/19/16 00:34 98.2 F 85 18 09/18/16 21:05 92 H 09/18/16 20:53 84 09/18/16 20:38 88 22 09/18/16 20:35 09/18/16 20:34 92 H 09/18/16 20:00 97.9 F 105 H 18 09/18/16 15:50 98.2 F 90 20 09/18/16 13:47 87 09/18/16 13:37 95 H Resp Resp BP BP BP Pulse Ox 09/19/16 10:13 139/90 09/19/16 10:12 139/80 09/19/16 10:10 139/80 09/19/16 09:20 138/75 97 09/19/16 08:07 09/19/16 05:40 139/87 98 09/19/16 00:34 161/111 97 09/18/16 21:05 20 09/18/16 20:53 20 100 09/18/16 20:38 09/18/16 20:35 22 09/18/16 20:34 09/18/16 20:00 129/78 97 09/18/16 15:50 107/70 100 09/18/16 13:47 20 09/18/16 13:37 20 - Physical Examination General: No Apparent Distress HEENT: Positive: PERRL Neck: Positive: trachea midline Cardiac: Positive: S1/S2 Lungs: Positive: Normal Exam Neuro: Positive: Grossly Intact - Labs and Meds Coagulation 09/19/16 Range/Units 08:50 PT 14.8 (12.2-14.9) Sec. INR 1.17 H (0.87-1.13) - Imaging and Cardiology EKG: report reviewed (Afib with rvr)
--- NOTE | 2016-09-19 14:53 | Progress Note ---
Assessment and Plan Patient alert, awake, Oriented. No acute respiratory distress.O2 satuaration 98% .On 2 litres O2. Patient undergone bronchoscopy. Bronchoscopy specimen results pending. Resting on 2 litres O2. O2 satuaration 98%. - Patient Problems (1) Mass of left lung Current Visit: Yes Status: Acute Plan to address problem: Patient undergone percutaneous needle biopsy of left chest lesion. No malignancy reported. (2) Acute hypoxemic respiratory failure Current Visit: Yes Status: Acute Plan to address problem: O2 supplementation 2 litres. Albuterol/atrovent aerosol treatments q 6 hours. (3) Pleural effusion, left Current Visit: Yes Status: Acute Plan to address problem: S/P left thoracentesis. Pleural fluid Protien 4.6, LDH 172 Pleural fluid is exudate. Pleural fluid cytology reported negative for malignant cells. (4) Atelectasis of left lung Current Visit: Yes Status: Acute Plan to address problem: Albuterol/atrovent aerosol treatments q 6 hours. Incentive spirometry Chest PT. Patient undergone bronchoscopy today Bronchoscopy specimen results pending. Subjective Date of service: 09/19/16 Principal diagnosis: Atrial Fib with RVR; Acute Hypoxemic Resp Failure Interval history: Patient alert, awake, Oriented. No acute respiratory distress.O2 satuaration 98% .On 2 litres O2. Patient undergone bronchoscopy..Bronchoscopy specimen results pending. Resting on 2 litres O2. O2 satuaration 98%. Objective Vital Signs - 12hr 09/19/16 09/19/16 09/19/16 05:40 07:50 08:00 Temperature 98.0 F Pulse Rate Pulse Rate [ 96 H 97 H Bilateral Throughout] Pulse Rate [ 107 H From Monitor] Pulse Rate [ Right Radial] Respiratory 18 Rate Respiratory 18 18 Rate [Bilateral Throughout] Blood Pressure Blood Pressure 139/87 [Left Arm] Blood Pressure [Right Arm] O2 Sat by Pulse 98 Oximetry 09/19/16 09/19/16 09/19/16 08:07 09:20 10:00 Temperature 97.8 F Pulse Rate 84 Pulse Rate [ Bilateral Throughout] Pulse Rate [ From Monitor] Pulse Rate [ 62 Right Radial] Respiratory 22 Rate Respiratory Rate [Bilateral Throughout] Blood Pressure Blood Pressure [Left Arm] Blood Pressure 138/75 [Right Arm] O2 Sat by Pulse 97 97 Oximetry 09/19/16 09/19/16 09/19/16 10:10 10:12 10:13 Temperature Pulse Rate Pulse Rate [ Bilateral Throughout] Pulse Rate [ From Monitor] Pulse Rate [ Right Radial] Respiratory Rate Respiratory Rate [Bilateral Throughout] Blood Pressure 139/80 139/80 139/90 Blood Pressure [Left Arm] Blood Pressure [Right Arm] O2 Sat by Pulse Oximetry 09/19/16 12:05 Temperature 97.6 F Pulse Rate Pulse Rate [ Bilateral Throughout] Pulse Rate [ 142 H From Monitor] Pulse Rate [ Right Radial] Respiratory 24 Rate Respiratory Rate [Bilateral Throughout] Blood Pressure Blood Pressure [Left Arm] Blood Pressure 113/83 [Right Arm] O2 Sat by Pulse 98 Oximetry Constitutional: no acute distress, alert Eyes: non-icteric ENT: oropharynx moist Neck: supple, no lymphadenopathy Effort: normal Ascultation: Left: diminished breath sounds, Bilateral: rhonchi (posterior bases ) Cardiovascular: irregular rhythm Gastrointestinal: normoactive bowel sounds, soft, non-tender, non-distended Integumentary: normal Extremities: no cyanosis, no edema, pulses normal, no ischemia or petechiae Neurologic: normal mental status, non-focal exam, pupils equal and round, motor strength normal and Psychiatric: mood appropriate, affect normal CBC and BMP: 09/18/16 04:21 09/18/16 04:21 ABG, PT/INR, D-dimer: ABG POC ABG pH 7.412 (7.35-7.45) 09/09/16 18:09 POC ABG pCO2 42.1 (35-45) 09/09/16 18:09 POC ABG pO2 73 (80-105) L 09/09/16 18:09 POC ABG HCO3 26.8 09/09/16 18:09 POC ABG Total CO2 28 09/09/16 18:09 POC ABG O2 Sat 95 09/09/16 18:09 PT/INR, D-dimer PT 14.8 Sec. (12.2-14.9) 09/19/16 08:50 INR 1.17 (0.87-1.13) H 09/19/16 08:50 D-Dimer 741.42 ng/mlDDU (0-234) H 09/08/16 13:14 Abnormal lab findings: Abnormal Labs 09/07/16 09/07/16 09/08/16 22:28 23:36 04:51 WBC Hgb 10.3 L Hct 33.2 L MCV 70 L MCH 22 L MCHC 31 L RDW 15.8 H Lymph % (Auto) [place] % (Auto) 11.2 H Lymph # [place] # 1.1 H Seg Neutrophils % Seg Neutrophils # PT INR APTT D-Dimer Heparin Anti-Xa Level POC ABG pO2 BUN Creatinine Glucose POC Glucose 121 H 119 H Hemoglobin A1c Lactic Acid Lactate Dehydrogenase C-Reactive Protein Albumin Fluid Total Protein 09/08/16 09/08/16 09/08/16 04:51 04:51 07:42 WBC Hgb Hct MCV MCH MCHC RDW Lymph % (Auto) [place] % (Auto) Lymph # [place] # Seg Neutrophils % Seg Neutrophils # PT INR APTT D-Dimer Heparin Anti-Xa Level POC ABG pO2 BUN 7 L Creatinine Glucose 133 H POC Glucose 118 H Hemoglobin A1c 6.6 H Lactic Acid Lactate Dehydrogenase C-Reactive Protein Albumin 2.9 L Fluid Total Protein 09/08/16 09/08/16 09/08/16 13:14 13:14 13:14 WBC Hgb Hct MCV MCH MCHC RDW Lymph % (Auto) [place] % (Auto) Lymph # [place] # Seg Neutrophils % Seg Neutrophils # PT INR APTT D-Dimer 741.42 H Heparin Anti-Xa Level POC ABG pO2 BUN Creatinine Glucose POC Glucose Hemoglobin A1c Lactic Acid 2.5 H* Lactate Dehydrogenase C-Reactive Protein 5.70 H Albumin Fluid Total Protein 09/08/16 09/08/16 09/09/16 15:50 21:42 03:59 WBC Hgb Hct MCV MCH MCHC RDW Lymph % (Auto) [place] % (Auto) Lymph # [place] # Seg Neutrophils % Seg Neutrophils # PT INR APTT D-Dimer Heparin Anti-Xa Level POC ABG pO2 BUN 6 L Creatinine 0.7 L Glucose POC Glucose 69 L 69 L Hemoglobin A1c Lactic Acid Lactate Dehydrogenase C-Reactive Protein Albumin Fluid Total Protein 09/09/16 09/09/16 09/10/16 07:39 18:09 03:49 WBC Hgb 10.7 L Hct 33.9 L MCV MCH MCHC RDW Lymph % (Auto) [place] % (Auto) Lymph # [place] # Seg Neutrophils % Seg Neutrophils # PT INR APTT D-Dimer Heparin Anti-Xa Level POC ABG pO2 73 L BUN Creatinine Glucose POC Glucose 106 H Hemoglobin A1c Lactic Acid Lactate Dehydrogenase C-Reactive Protein Albumin Fluid Total Protein 03/24/17 03/24/17 03/24/17 03:49 08:06 11:02 WBC Hgb Hct MCV MCH MCHC RDW Lymph % (Auto) [place] % (Auto) Lymph # [place] # Seg Neutrophils % Seg Neutrophils # PT INR APTT D-Dimer Heparin Anti-Xa Level POC ABG pO2 BUN Creatinine Glucose POC Glucose 123 H 121 H Hemoglobin A1c Lactic Acid Lactate Dehydrogenase 208 H C-Reactive Protein Albumin Fluid Total Protein 09/10/16 09/10/16 09/10/16 12:14 15:52 21:11 WBC Hgb Hct MCV MCH MCHC RDW Lymph % (Auto) [place] % (Auto) Lymph # [place] # Seg Neutrophils % Seg Neutrophils # PT 15.6 H INR 1.25 H APTT D-Dimer Heparin Anti-Xa Level POC ABG pO2 BUN Creatinine Glucose POC Glucose 162 H 156 H Hemoglobin A1c Lactic Acid Lactate Dehydrogenase C-Reactive Protein Albumin Fluid Total Protein 09/10/16 09/10/16 09/11/16 22:58 23:47 05:47 WBC Hgb 10.7 L Hct 34.7 L MCV 69 L MCH 21 L MCHC 31 L RDW 15.8 H Lymph % (Auto) 10.9 L [place] % (Auto) 9.4 H Lymph # 1.1 L [place] # 1.0 H Seg Neutrophils % 78.1 H Seg Neutrophils # 8.1 H PT INR APTT D-Dimer Heparin Anti-Xa Level 0.25 L POC ABG pO2 BUN Creatinine Glucose POC Glucose 141 H Hemoglobin A1c Lactic Acid Lactate Dehydrogenase C-Reactive Protein Albumin Fluid Total Protein 09/11/16 09/11/16 09/11/16 05:47 05:47 08:31 WBC Hgb Hct MCV MCH MCHC RDW Lymph % (Auto) [place] % (Auto) Lymph # [place] # Seg Neutrophils % Seg Neutrophils # PT INR APTT D-Dimer Heparin Anti-Xa Level 0.16 L POC ABG pO2 BUN 5 L Creatinine 0.7 L Glucose 121 H POC Glucose 111 H Hemoglobin A1c Lactic Acid Lactate Dehydrogenase C-Reactive Protein Albumin Fluid Total Protein 09/11/16 09/11/16 09/11/16 12:33 13:46 16:58 WBC Hgb Hct MCV MCH MCHC RDW Lymph % (Auto) [place] % (Auto) Lymph # [place] # Seg Neutrophils % Seg Neutrophils # PT INR APTT D-Dimer Heparin Anti-Xa Level < 0.10 L POC ABG pO2 BUN Creatinine Glucose POC Glucose 135 H 69 L Hemoglobin A1c Lactic Acid Lactate Dehydrogenase C-Reactive Protein Albumin Fluid Total Protein 09/12/16 09/12/16 09/12/16 07:52 10:12 11:39 WBC Hgb Hct MCV MCH MCHC RDW Lymph % (Auto) [place] % (Auto) Lymph # [place] # Seg Neutrophils % Seg Neutrophils # PT INR 1.17 H APTT D-Dimer Heparin Anti-Xa Level POC ABG pO2 BUN Creatinine Glucose POC Glucose 112 H 110 H Hemoglobin A1c Lactic Acid Lactate Dehydrogenase C-Reactive Protein Albumin Fluid Total Protein 09/12/16 09/12/16 09/12/16 12:46 17:07 22:36 WBC Hgb Hct MCV MCH MCHC RDW Lymph % (Auto) [place] % (Auto) Lymph # [place] # Seg Neutrophils % Seg Neutrophils # PT INR APTT D-Dimer Heparin Anti-Xa Level POC ABG pO2 BUN Creatinine Glucose POC Glucose 115 H 171 H Hemoglobin A1c Lactic Acid Lactate Dehydrogenase C-Reactive Protein Albumin Fluid Total Protein 4.6 L 09/12/16 09/13/16 09/13/16 23:10 12:40 18:35 WBC Hgb Hct MCV MCH MCHC RDW Lymph % (Auto) [place] % (Auto) Lymph # [place] # Seg Neutrophils % Seg Neutrophils # PT INR APTT D-Dimer Heparin Anti-Xa Level < 0.10 L POC ABG pO2 BUN Creatinine Glucose POC Glucose 142 H 123 H Hemoglobin A1c Lactic Acid Lactate Dehydrogenase C-Reactive Protein Albumin Fluid Total Protein 09/13/16 09/14/16 09/14/16 22:32 06:54 07:29 WBC Hgb 10.3 L Hct 32.4 L D MCV MCH MCHC RDW Lymph % (Auto) [place] % (Auto) Lymph # [place] # Seg Neutrophils % Seg Neutrophils # PT INR APTT D-Dimer Heparin Anti-Xa Level POC ABG pO2 BUN Creatinine Glucose POC Glucose 121 H 133 H Hemoglobin A1c Lactic Acid Lactate Dehydrogenase C-Reactive Protein Albumin Fluid Total Protein 09/14/16 09/15/16 09/15/16 11:28 07:36 21:37 WBC Hgb Hct MCV MCH MCHC RDW Lymph % (Auto) [place] % (Auto) Lymph # [place] # Seg Neutrophils % Seg Neutrophils # PT INR APTT D-Dimer Heparin Anti-Xa Level POC ABG pO2 BUN Creatinine Glucose POC Glucose 112 H 111 H 115 H Hemoglobin A1c Lactic Acid Lactate Dehydrogenase C-Reactive Protein Albumin Fluid Total Protein 09/16/16 09/16/16 09/16/16 06:22 06:22 07:32 WBC Hgb 10.5 L Hct 33.7 L MCV MCH MCHC RDW Lymph % (Auto) [place] % (Auto) Lymph # [place] # Seg Neutrophils % Seg Neutrophils # PT INR 1.16 H APTT 46.1 H D-Dimer Heparin Anti-Xa Level POC ABG pO2 BUN Creatinine Glucose POC Glucose 113 H Hemoglobin A1c Lactic Acid Lactate Dehydrogenase C-Reactive Protein Albumin Fluid Total Protein 09/16/16 09/16/16 09/17/16 11:30 15:30 06:11 WBC Hgb Hct MCV MCH MCHC RDW Lymph % (Auto) [place] % (Auto) Lymph # [place] # Seg Neutrophils % Seg Neutrophils # PT INR 1.16 H APTT D-Dimer Heparin Anti-Xa Level POC ABG pO2 BUN Creatinine Glucose POC Glucose 120 H 142 H Hemoglobin A1c Lactic Acid Lactate Dehydrogenase C-Reactive Protein Albumin Fluid Total Protein 09/17/16 09/17/16 09/17/16 06:11 06:11 17:20 WBC Hgb 10.3 L Hct 32.8 L MCV 69 L MCH 22 L MCHC RDW 16.3 H Lymph % (Auto) 12.4 L [place] % (Auto) 10.8 H Lymph # [place] # 1.1 H Seg Neutrophils % 74.8 H Seg Neutrophils # PT INR APTT D-Dimer Heparin Anti-Xa Level POC ABG pO2 BUN 8 L Creatinine 0.7 L Glucose 106 H POC Glucose 161 H Hemoglobin A1c Lactic Acid Lactate Dehydrogenase C-Reactive Protein Albumin Fluid Total Protein 09/17/16 09/17/16 09/18/16 17:40 20:19 04:21 WBC Hgb Hct MCV MCH MCHC RDW Lymph % (Auto) [place] % (Auto) Lymph # [place] # Seg Neutrophils % Seg Neutrophils # PT INR 1.18 H APTT D-Dimer Heparin Anti-Xa Level < 0.10 L POC ABG pO2 BUN Creatinine Glucose POC Glucose 107 H Hemoglobin A1c Lactic Acid Lactate Dehydrogenase C-Reactive Protein Albumin Fluid Total Protein 09/18/16 09/18/16 09/18/16 04:21 04:21 08:40 WBC 11.3 H Hgb 10.3 L Hct 32.6 L MCV 68 L MCH 22 L MCHC RDW 16.2 H Lymph % (Auto) [place] % (Auto) 9.2 H Lymph # [place] # 1.0 H Seg Neutrophils % 75.0 H Seg Neutrophils # 8.5 H PT INR APTT D-Dimer Heparin Anti-Xa Level POC ABG pO2 BUN 7 L Creatinine 0.7 L Glucose 112 H POC Glucose 130 H Hemoglobin A1c Lactic Acid Lactate Dehydrogenase C-Reactive Protein Albumin Fluid Total Protein 09/18/16 09/19/16 09/19/16 12:19 08:50 09:22 WBC Hgb Hct MCV MCH MCHC RDW Lymph % (Auto) [place] % (Auto) Lymph # [place] # Seg Neutrophils % Seg Neutrophils # PT INR 1.17 H APTT D-Dimer Heparin Anti-Xa Level POC ABG pO2 BUN Creatinine Glucose POC Glucose 286 H 173 H Hemoglobin A1c Lactic Acid Lactate Dehydrogenase C-Reactive Protein Albumin Fluid Total Protein
--- NOTE | 2016-09-19 17:51 | Progress Note ---
Assessment and Plan Assessment and plan: --Lung mass with effusion Status post thoracentesis. No malignant cells Status post CT-guided biopsy. No malignancy noted Status post bronchoscopy and needle biopsy, pending histopathology Pulmonary following --A flutter with rapid ventricular rate status post Cardizem drip No one oral Cardizem, full dose anticoagulation with Lovenox Cardiology following Will start oral anticoagulants once lung mass workup is completed --Type 2 diabetes mellitus Accu-Chek sliding scale coverage and ADA diet and insulin as needed --BPH continue Flomax --Dyslipidemia stable on lipid-lowering medications --DVT prophylaxis on full dose Lovenox --Full CODE STATUS Closely monitor the patient adjust management as needed Consults noted Disposition discharge home with home health once cleared by pulmonary and cardiology Plan of care discussed with the patient as well as his nurse History Interval history: Patient seen and evaluated medical records reviewed No new complaints, patient is comfortable Alert awake oriented 3 not in acute distress vital signs are stable Hospitalist Physical - Constitutional Vitals: Temp Pulse Resp BP Pulse Ox 97.6 F 108 H 18 113/83 98 09/19/16 12:05 09/19/16 14:10 09/19/16 14:10 09/19/16 12:05 09/19/16 12:05 General appearance: Present: no acute distress, well-nourished - EENT Eyes: Present: PERRL, EOM intact - Neck Neck: Present: supple, normal ROM - Respiratory Respiratory effort: normal Respiratory: bilateral: diminished, rhonchi - Cardiovascular Rhythm: irregularly irregular Heart Sounds: Present: S1 & S2 - Extremities Extremities: no ischemia, pulses intact, pulses symmetrical Peripheral Pulses: within normal limits - Abdominal General gastrointestinal: soft, non-tender, non-distended, normal bowel sounds - Integumentary Integumentary: Present: clear, warm - Psychiatric Psychiatric: appropriate mood/affect, cooperative - Neurologic Neurologic: CNII-XII intact, moves all extremities Results - Labs CBC & Chem 7: 09/18/16 04:21 09/18/16 04:21 Labs: Laboratory Last Values WBC 11.3 K/mm3 (4.5-11.0) H 09/18/16 04:21 RBC 4.79 M/mm3 (3.65-5.03) 09/18/16 04:21 Hgb 10.3 gm/dl (11.8-15.2) L 09/18/16 04:21 Hct 32.6 % (35.5-45.6) L 09/18/16 04:21 MCV 68 fl (84-94) L 09/18/16 04:21 MCH 22 pg (28-32) L 09/18/16 04:21 MCHC 32 % (32-34) 09/18/16 04:21 RDW 16.2 % (13.2-15.2) H 09/18/16 04:21 Plt Count 332 K/mm3 (140-440) 09/18/16 04:21 Lymph % (Auto) 13.6 % (13.4-35.0) 09/18/16 04:21 [place] % (Auto) 9.2 % (0.0-7.3) H 09/18/16 04:21 Eos % (Auto) 1.1 % (0.0-4.3) 09/18/16 04:21 Baso % (Auto) 1.1 % (0.0-1.8) 09/18/16 04:21 Lymph # 1.5 K/mm3 (1.2-5.4) 09/18/16 04:21 [place] # 1.0 K/mm3 (0.0-0.8) H 09/18/16 04:21 Eos # 0.1 K/mm3 (0.0-0.4) 09/18/16 04:21 Baso # 0.1 K/mm3 (0.0-0.1) 09/18/16 04:21 Seg Neutrophils % 75.0 % (40.0-70.0) H 09/18/16 04:21 Seg Neutrophils # 8.5 K/mm3 (1.8-7.7) H 09/18/16 04:21 PT 14.8 Sec. (12.2-14.9) 09/19/16 08:50 INR 1.17 (0.87-1.13) H 09/19/16 08:50 APTT 46.1 Sec. (24.2-36.6) H 09/16/16 06:22 D-Dimer 741.42 ng/mlDDU (0-234) H 09/08/16 13:14 Heparin Anti-Xa Level < 0.10 U.I./ml (0.3-0.7) L 09/17/16 17:40 POC ABG pH 7.412 (7.35-7.45) 09/09/16 18:09 POC ABG pCO2 42.1 (35-45) 09/09/16 18:09 POC ABG pO2 73 (80-105) L 09/09/16 18:09 POC ABG HCO3 26.8 09/09/16 18:09 POC ABG Total CO2 28 09/09/16 18:09 POC ABG O2 Sat 95 09/09/16 18:09 POC ABG Base Excess 2 09/09/16 18:09 VBG pH 7.369 (7.320-7.420) 09/07/16 17:50 FiO2 28 % 09/09/16 18:09 Sodium 142 mmol/L (137-145) 09/18/16 04:21 Potassium 4.2 mmol/L (3.6-5.0) 09/18/16 04:21 Chloride 102.4 mmol/L (98-107) 09/18/16 04:21 Carbon Dioxide 25 mmol/L (22-30) 09/18/16 04:21 Anion Gap 19 mmol/L 09/18/16 04:21 BUN 7 mg/dL (9-20) L 09/18/16 04:21 Creatinine 0.7 mg/dL (0.8-1.5) L 09/18/16 04:21 Estimated GFR > 60 ml/min 09/18/16 04:21 BUN/Creatinine Ratio 10.00 % 09/18/16 04:21 Glucose 112 mg/dL (75-100) H 09/18/16 04:21 POC Glucose 76 (70-105) 09/19/16 12:27 Hemoglobin A1c 6.6 % (4-6) H 09/08/16 04:51 Lactic Acid 1.2 mmol/L (0.7-2.0) 09/09/16 03:59 Calcium 9.2 mg/dL (8.4-10.2) 09/18/16 04:21 Magnesium 1.8 mg/dL (1.7-2.3) 09/09/16 03:59 Total Bilirubin 0.4 mg/dL (0.1-1.2) 09/08/16 04:51 AST 16 units/L (5-40) 09/08/16 04:51 ALT 20 units/L (7-56) 09/08/16 04:51 Alkaline Phosphatase 82 units/L (35-129) 09/08/16 04:51 Lactate Dehydrogenase 208 units/L (91-180) H 09/10/16 03:49 Total Creatine Kinase 34 units/L (55-170) L 09/07/16 18:06 Troponin T < 0.010 ng/mL (0.00-0.029) 09/07/16 17:50 C-Reactive Protein 5.70 mg/dL (0.00-1.30) H 09/08/16 13:14 NT-Pro-B Natriuret Pep 547.2 pg/mL (0-900) 09/07/16 17:50 Total Protein 6.8 g/dL (6.3-8.2) 09/09/16 21:30 Albumin 2.9 g/dL (3.9-5) L 09/08/16 04:51 Albumin/Globulin Ratio 0.7 % 09/08/16 04:51 TSH 0.982 mlU/mL (0.270-4.200) 09/07/16 18:06 Free T4 1.12 ng/dL (0.76-1.46) 09/07/16 17:50 Fluid Total Protein 4.6 (15.0-45.0) L 09/12/16 12:46 Fluid LDH 172 09/12/16 12:46 Ketones 0.1 mmol/L (-0.28) 09/07/16 18:06
[2016-09-19] MEDS: LOVENOX SUB-Q SCH ×2 (18:59→21:40)
[2016-09-19] MEDS: ZOCOR PO SCH (21:40)
[2016-09-20] MEDS: DUONEB 0.5 MG-3 MG/3 ML SOLN IH SCH ×4 (02:35→19:27)
[2016-09-20 07:50] LABS: Eosinophils % (Auto) 1.5 % (0.0-4.3); Hematocrit 32.5 % (35.5-45.6); Hemoglobin 10.2 gm/dl (11.8-15.2); Mean Corpuscular HGB Conc 31 % (32-34); Platelet Count 353 K/mm3 (140-440); Red Blood Count 4.75 M/mm3 (3.65-5.03); Red Cell Distribution Width 16.2 % (13.2-15.2); White Blood Count 8.9 K/mm3 (4.5-11.0)
[2016-09-20 07:53] LABS: Mean Corpuscular Volume 68 fl (84-94)
[2016-09-20 07:54] LABS: Mean Corpuscular Hemoglobin 21 pg (28-32)
[2016-09-20 07:59] LABS: INR 1.18 (0.87-1.13)
[2016-09-20 08:08] LABS: Anion Gap 17 mmol/L; Calcium 9.4 mg/dL (8.4-10.2); Carbon Dioxide 27 mmol/L (22-30); Chloride 102.3 mmol/L (98-107); Glucose 116 mg/dL (75-100); Potassium 3.8 mmol/L (3.6-5.0); Sodium 142 mmol/L (137-145)
[2016-09-20] MEDS: GLUCOTROL PO SCH (08:44)
[2016-09-20 10:12] LABS: Blood Urea Nitrogen 6 mg/dL (9-20)
[2016-09-20] MEDS: LOVENOX SUB-Q SCH ×2 (12:03→22:22)
[2016-09-20] MEDS: COZAAR PO SCH (12:04)
[2016-09-20] MEDS: CARDIZEM CD PO SCH (12:06)
[2016-09-20] MEDS: FLOMAX PO SCH (12:07)
[2016-09-20] MEDS: PEPCID PO SCH (12:08)
--- NOTE | 2016-09-20 12:25 | Progress Note ---
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 as well as oncologist, --Flutter with rapid ventricular rate Rate controlled, continue Cardizem, continue heparin drip per protocol Cardiology following --Type 2 diabetes mellitus, moderate control Accu-Chek sliding scale coverage and ADA diet and insulin --BPH continue Flomax --Dyslipidemia, stable on lipid-lowering medications Low-cholesterol diet --Obesity counseling done dietary modification and exercise as tolerated and weight reduction when medically stable --Full CODE STATUS --DVT prophylaxis patient is already on heparin Follow Oncology evaluation and recommendations Rest of the workup can be done as outpatient if stable Patient's condition treatment plan discussed in detail with the patient family members at the bedside as well as the case management , History Interval history: Patient seen and evaluated medical records reviewed Pathology lab reported needle biopsy post bronchoscopy 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 Montejo, recommend oncology consultation Patient feels better, no new complaints Alert awake oriented 3 not in acute distress, vital signs reviewed stable Hospitalist Physical - Constitutional Vitals: Temp Pulse Resp BP Pulse Ox 97.5 F L 78 18 132/80 98 09/20/16 08:00 09/20/16 12:06 09/20/16 08:00 09/20/16 08:00 09/20/16 08:52 General appearance: Present: no acute distress, well-nourished - EENT Eyes: Present: PERRL, EOM intact - Neck Neck: Present: supple, normal ROM - Respiratory Respiratory effort: normal Respiratory: bilateral: diminished, rhonchi - Cardiovascular Rhythm: regular Heart Sounds: Present: S1 & S2 - Extremities Extremities: no ischemia, pulses intact Peripheral Pulses: within normal limits - Abdominal General gastrointestinal: soft, non-tender, non-distended, normal bowel sounds - Integumentary Integumentary: Present: clear, warm - Psychiatric Psychiatric: appropriate mood/affect, cooperative - Neurologic Neurologic: CNII-XII intact, moves all extremities Results - Labs CBC & Chem 7: 09/20/16 06:41 09/20/16 06:41 Labs: Laboratory Last Values WBC 8.9 K/mm3 (4.5-11.0) 09/20/16 06:41 RBC 4.75 M/mm3 (3.65-5.03) 09/20/16 06:41 Hgb 10.2 gm/dl (11.8-15.2) L 09/20/16 06:41 Hct 32.5 % (35.5-45.6) L 09/20/16 06:41 MCV 68 fl (84-94) L 09/20/16 06:41 MCH 21 pg (28-32) L 09/20/16 06:41 MCHC 31 % (32-34) L 09/20/16 06:41 RDW 16.2 % (13.2-15.2) H 09/20/16 06:41 Plt Count 353 K/mm3 (140-440) 09/20/16 06:41 Lymph % (Auto) 14.2 % (13.4-35.0) 09/20/16 06:41 [place] % (Auto) 8.8 % (0.0-7.3) H 09/20/16 06:41 Eos % (Auto) 1.5 % (0.0-4.3) 09/20/16 06:41 Baso % (Auto) 1.0 % (0.0-1.8) 09/20/16 06:41 Lymph # 1.3 K/mm3 (1.2-5.4) 09/20/16 06:41 [place] # 0.8 K/mm3 (0.0-0.8) 09/20/16 06:41 Eos # 0.1 K/mm3 (0.0-0.4) 09/20/16 06:41 Baso # 0.1 K/mm3 (0.0-0.1) 09/20/16 06:41 Seg Neutrophils % 74.5 % (40.0-70.0) H 09/20/16 06:41 Seg Neutrophils # 6.6 K/mm3 (1.8-7.7) 09/20/16 06:41 PT 14.9 Sec. (12.2-14.9) 09/20/16 06:41 INR 1.18 (0.87-1.13) H 09/20/16 06:41 APTT 46.1 Sec. (24.2-36.6) H 09/16/16 06:22 D-Dimer 741.42 ng/mlDDU (0-234) H 09/08/16 13:14 Heparin Anti-Xa Level < 0.10 U.I./ml (0.3-0.7) L 09/17/16 17:40 POC ABG pH 7.412 (7.35-7.45) 09/09/16 18:09 POC ABG pCO2 42.1 (35-45) 09/09/16 18:09 POC ABG pO2 73 (80-105) L 09/09/16 18:09 POC ABG HCO3 26.8 09/09/16 18:09 POC ABG Total CO2 28 09/09/16 18:09 POC ABG O2 Sat 95 09/09/16 18:09 POC ABG Base Excess 2 09/09/16 18:09 VBG pH 7.369 (7.320-7.420) 09/07/16 17:50 FiO2 28 % 09/09/16 18:09 Sodium 142 mmol/L (137-145) 09/20/16 06:41 Potassium 3.8 mmol/L (3.6-5.0) 09/20/16 06:41 Chloride 102.3 mmol/L (98-107) 09/20/16 06:41 Carbon Dioxide 27 mmol/L (22-30) 09/20/16 06:41 Anion Gap 17 mmol/L 09/20/16 06:41 BUN 6 mg/dL (9-20) L 09/20/16 06:41 Creatinine 0.6 mg/dL (0.8-1.5) L 09/20/16 06:41 Estimated GFR > 60 ml/min 09/20/16 06:41 BUN/Creatinine Ratio 10.00 % 09/20/16 06:41 Glucose 116 mg/dL (75-100) H 09/20/16 06:41 POC Glucose 129 (70-105) H 09/19/16 21:15 Hemoglobin A1c 6.6 % (4-6) H 09/08/16 04:51 Lactic Acid 1.2 mmol/L (0.7-2.0) 09/09/16 03:59 Calcium 9.4 mg/dL (8.4-10.2) 09/20/16 06:41 Magnesium 1.8 mg/dL (1.7-2.3) 09/09/16 03:59 Total Bilirubin 0.4 mg/dL (0.1-1.2) 09/08/16 04:51 AST 16 units/L (5-40) 09/08/16 04:51 ALT 20 units/L (7-56) 09/08/16 04:51 Alkaline Phosphatase 82 units/L (35-129) 09/08/16 04:51 Lactate Dehydrogenase 208 units/L (91-180) H 09/10/16 03:49 Total Creatine Kinase 34 units/L (55-170) L 09/07/16 18:06 Troponin T < 0.010 ng/mL (0.00-0.029) 09/07/16 17:50 C-Reactive Protein 5.70 mg/dL (0.00-1.30) H 09/08/16 13:14 NT-Pro-B Natriuret Pep 547.2 pg/mL (0-900) 09/07/16 17:50 Total Protein 6.8 g/dL (6.3-8.2) 09/09/16 21:30 Albumin 2.9 g/dL (3.9-5) L 09/08/16 04:51 Albumin/Globulin Ratio 0.7 % 09/08/16 04:51 TSH 0.982 mlU/mL (0.270-4.200) 09/07/16 18:06 Free T4 1.12 ng/dL (0.76-1.46) 09/07/16 17:50 Fluid Total Protein 4.6 (15.0-45.0) L 09/12/16 12:46 Fluid LDH 172 09/12/16 12:46 Ketones 0.1 mmol/L (-0.28) 09/07/16 18:06
--- NOTE | 2016-09-20 18:30 | Progress Note ---
Assessment and Plan Patient alert, awake, Oriented. No acute respiratory distress.O2 satuaration 98% .On 2 litres O2. Bronchial brushings reported positive for malignant cells. 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 Recommend to consult Oncology. - Patient Problems (1) Mass of left lung Current Visit: Yes Status: Acute Plan to address problem: Bronchial brushings reported positive for malignant cells. 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 Recommend to consult Oncology. (2) Acute hypoxemic respiratory failure Current Visit: Yes Status: Acute Plan to address problem: O2 supplementation 2 litres. Albuterol/atrovent aerosol treatments q 6 hours. (3) Pleural effusion, left Current Visit: Yes Status: Acute Plan to address problem: S/P left thoracentesis. Pleural fluid Protien 4.6, LDH 172 Pleural fluid is exudate. (4) Atelectasis of left lung Current Visit: Yes Status: Acute Plan to address problem: Albuterol/atrovent aerosol treatments q 6 hours. Incentive spirometry Chest PT. Subjective Date of service: 09/20/16 Principal diagnosis: Atrial Fib with RVR; Acute Hypoxemic Resp Failure Interval history: Patient alert, awake, Oriented. No acute respiratory distress.O2 satuaration 98% .On 2 litres O2. Bronchial brushings reported positive for malignant cells. 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 Recommend to consult oncology. Objective Vital Signs - 12hr 09/20/16 09/20/16 09/20/16 07:50 08:00 08:52 Temperature 97.5 F L Pulse Rate Pulse Rate [ 92 H 93 H Bilateral Throughout] Pulse Rate [ 80 From Monitor] Respiratory 20 Rate Respiratory 18 18 Rate [Bilateral Throughout] Blood Pressure 132/80 [Left Arm] O2 Sat by Pulse 98 98 Oximetry 09/20/16 09/20/16 09/20/16 12:04 12:06 13:40 Temperature Pulse Rate 78 78 Pulse Rate [ 94 H Bilateral Throughout] Pulse Rate [ From Monitor] Respiratory Rate Respiratory 18 Rate [Bilateral Throughout] Blood Pressure [Left Arm] O2 Sat by Pulse Oximetry 09/20/16 13:50 Temperature Pulse Rate Pulse Rate [ 95 H Bilateral Throughout] Pulse Rate [ From Monitor] Respiratory Rate Respiratory 18 Rate [Bilateral Throughout] Blood Pressure [Left Arm] O2 Sat by Pulse Oximetry Constitutional: no acute distress, alert Eyes: non-icteric ENT: oropharynx moist Neck: supple, no lymphadenopathy Effort: normal Ascultation: Left: diminished breath sounds, Bilateral: rhonchi (posterior bases ) Cardiovascular: irregular rhythm Gastrointestinal: normoactive bowel sounds, soft, non-tender, non-distended Integumentary: normal Extremities: no cyanosis, no edema, pulses normal, no ischemia or petechiae Neurologic: normal mental status, non-focal exam, pupils equal and round, motor strength normal and Psychiatric: mood appropriate, affect normal CBC and BMP: 09/20/16 06:41 09/20/16 06:41 ABG, PT/INR, D-dimer: ABG POC ABG pH 7.412 (7.35-7.45) 09/09/16 18:09 POC ABG pCO2 42.1 (35-45) 09/09/16 18:09 POC ABG pO2 73 (80-105) L 09/09/16 18:09 POC ABG HCO3 26.8 09/09/16 18:09 POC ABG Total CO2 28 09/09/16 18:09 POC ABG O2 Sat 95 09/09/16 18:09 PT/INR, D-dimer PT 14.9 Sec. (12.2-14.9) 09/20/16 06:41 INR 1.18 (0.87-1.13) H 09/20/16 06:41 D-Dimer 741.42 ng/mlDDU (0-234) H 09/08/16 13:14 Abnormal lab findings: Abnormal Labs 09/07/16 09/07/16 09/08/16 22:28 23:36 04:51 WBC Hgb 10.3 L Hct 33.2 L MCV 70 L MCH 22 L MCHC 31 L RDW 15.8 H Lymph % (Auto) [place] % (Auto) 11.2 H Lymph # [place] # 1.1 H Seg Neutrophils % Seg Neutrophils # PT INR APTT D-Dimer Heparin Anti-Xa Level POC ABG pO2 BUN Creatinine Glucose POC Glucose 121 H 119 H Hemoglobin A1c Lactic Acid Lactate Dehydrogenase C-Reactive Protein Albumin Fluid Total Protein 09/08/16 09/08/16 09/08/16 04:51 04:51 07:42 WBC Hgb Hct MCV MCH MCHC RDW Lymph % (Auto) [place] % (Auto) Lymph # [place] # Seg Neutrophils % Seg Neutrophils # PT INR APTT D-Dimer Heparin Anti-Xa Level POC ABG pO2 BUN 7 L Creatinine Glucose 133 H POC Glucose 118 H Hemoglobin A1c 6.6 H Lactic Acid Lactate Dehydrogenase C-Reactive Protein Albumin 2.9 L Fluid Total Protein 09/08/16 09/08/16 09/08/16 13:14 13:14 13:14 WBC Hgb Hct MCV MCH MCHC RDW Lymph % (Auto) [place] % (Auto) Lymph # [place] # Seg Neutrophils % Seg Neutrophils # PT INR APTT D-Dimer 741.42 H Heparin Anti-Xa Level POC ABG pO2 BUN Creatinine Glucose POC Glucose Hemoglobin A1c Lactic Acid 2.5 H* Lactate Dehydrogenase C-Reactive Protein 5.70 H Albumin Fluid Total Protein 09/08/16 09/08/16 09/09/16 15:50 21:42 03:59 WBC Hgb Hct MCV MCH MCHC RDW Lymph % (Auto) [place] % (Auto) Lymph # [place] # Seg Neutrophils % Seg Neutrophils # PT INR APTT D-Dimer Heparin Anti-Xa Level POC ABG pO2 BUN 6 L Creatinine 0.7 L Glucose POC Glucose 69 L 69 L Hemoglobin A1c Lactic Acid Lactate Dehydrogenase C-Reactive Protein Albumin Fluid Total Protein 09/09/16 09/09/16 09/10/16 07:39 18:09 03:49 WBC Hgb 10.7 L Hct 33.9 L MCV MCH MCHC RDW Lymph % (Auto) [place] % (Auto) Lymph # [place] # Seg Neutrophils % Seg Neutrophils # PT INR APTT D-Dimer Heparin Anti-Xa Level POC ABG pO2 73 L BUN Creatinine Glucose POC Glucose 106 H Hemoglobin A1c Lactic Acid Lactate Dehydrogenase C-Reactive Protein Albumin Fluid Total Protein 09/10/16 09/10/16 09/10/16 03:49 08:06 11:02 WBC Hgb Hct MCV MCH MCHC RDW Lymph % (Auto) [place] % (Auto) Lymph # [place] # Seg Neutrophils % Seg Neutrophils # PT INR APTT D-Dimer Heparin Anti-Xa Level POC ABG pO2 BUN Creatinine Glucose POC Glucose 123 H 121 H Hemoglobin A1c Lactic Acid Lactate Dehydrogenase 208 H C-Reactive Protein Albumin Fluid Total Protein 09/10/16 09/10/16 09/10/16 12:14 15:52 21:11 WBC Hgb Hct MCV MCH MCHC RDW Lymph % (Auto) [place] % (Auto) Lymph # [place] # Seg Neutrophils % Seg Neutrophils # PT 15.6 H INR 1.25 H APTT D-Dimer Heparin Anti-Xa Level POC ABG pO2 BUN Creatinine Glucose POC Glucose 162 H 156 H Hemoglobin A1c Lactic Acid Lactate Dehydrogenase C-Reactive Protein Albumin Fluid Total Protein 09/10/16 09/10/16 09/11/16 22:58 23:47 05:47 WBC Hgb 10.7 L Hct 34.7 L MCV 69 L MCH 21 L MCHC 31 L RDW 15.8 H Lymph % (Auto) 10.9 L [place] % (Auto) 9.4 H Lymph # 1.1 L [place] # 1.0 H Seg Neutrophils % 78.1 H Seg Neutrophils # 8.1 H PT INR APTT D-Dimer Heparin Anti-Xa Level 0.25 L POC ABG pO2 BUN Creatinine Glucose POC Glucose 141 H Hemoglobin A1c Lactic Acid Lactate Dehydrogenase C-Reactive Protein Albumin Fluid Total Protein 09/11/16 09/11/16 09/11/16 05:47 05:47 08:31 WBC Hgb Hct MCV MCH MCHC RDW Lymph % (Auto) [place] % (Auto) Lymph # [place] # Seg Neutrophils % Seg Neutrophils # PT INR APTT D-Dimer Heparin Anti-Xa Level 0.16 L POC ABG pO2 BUN 5 L Creatinine 0.7 L Glucose 121 H POC Glucose 111 H Hemoglobin A1c Lactic Acid Lactate Dehydrogenase C-Reactive Protein Albumin Fluid Total Protein 09/11/16 09/11/16 09/11/16 12:33 13:46 16:58 WBC Hgb Hct MCV MCH MCHC RDW Lymph % (Auto) [place] % (Auto) Lymph # [place] # Seg Neutrophils % Seg Neutrophils # PT INR APTT D-Dimer Heparin Anti-Xa Level < 0.10 L POC ABG pO2 BUN Creatinine Glucose POC Glucose 135 H 69 L Hemoglobin A1c Lactic Acid Lactate Dehydrogenase C-Reactive Protein Albumin Fluid Total Protein 09/12/16 09/12/16 09/12/16 07:52 10:12 11:39 WBC Hgb Hct MCV MCH MCHC RDW Lymph % (Auto) [place] % (Auto) Lymph # [place] # Seg Neutrophils % Seg Neutrophils # PT INR 1.17 H APTT D-Dimer Heparin Anti-Xa Level POC ABG pO2 BUN Creatinine Glucose POC Glucose 112 H 110 H Hemoglobin A1c Lactic Acid Lactate Dehydrogenase C-Reactive Protein Albumin Fluid Total Protein 09/12/16 09/12/16 09/12/16 12:46 17:07 22:36 WBC Hgb Hct MCV MCH MCHC RDW Lymph % (Auto) [place] % (Auto) Lymph # [place] # Seg Neutrophils % Seg Neutrophils # PT INR APTT D-Dimer Heparin Anti-Xa Level POC ABG pO2 BUN Creatinine Glucose POC Glucose 115 H 171 H Hemoglobin A1c Lactic Acid Lactate Dehydrogenase C-Reactive Protein Albumin Fluid Total Protein 4.6 L 09/12/16 09/13/16 09/13/16 23:10 12:40 18:35 WBC Hgb Hct MCV MCH MCHC RDW Lymph % (Auto) [place] % (Auto) Lymph # [place] # Seg Neutrophils % Seg Neutrophils # PT INR APTT D-Dimer Heparin Anti-Xa Level < 0.10 L POC ABG pO2 BUN Creatinine Glucose POC Glucose 142 H 123 H Hemoglobin A1c Lactic Acid Lactate Dehydrogenase C-Reactive Protein Albumin Fluid Total Protein 09/13/16 09/14/16 09/14/16 22:32 06:54 07:29 WBC Hgb 10.3 L Hct 32.4 L D MCV MCH MCHC RDW Lymph % (Auto) [place] % (Auto) Lymph # [place] # Seg Neutrophils % Seg Neutrophils # PT INR APTT D-Dimer Heparin Anti-Xa Level POC ABG pO2 BUN Creatinine Glucose POC Glucose 121 H 133 H Hemoglobin A1c Lactic Acid Lactate Dehydrogenase C-Reactive Protein Albumin Fluid Total Protein 09/14/16 09/15/16 09/15/16 11:28 07:36 21:37 WBC Hgb Hct MCV MCH MCHC RDW Lymph % (Auto) [place] % (Auto) Lymph # [place] # Seg Neutrophils % Seg Neutrophils # PT INR APTT D-Dimer Heparin Anti-Xa Level POC ABG pO2 BUN Creatinine Glucose POC Glucose 112 H 111 H 115 H Hemoglobin A1c Lactic Acid Lactate Dehydrogenase C-Reactive Protein Albumin Fluid Total Protein 09/16/16 09/16/16 09/16/16 06:22 06:22 07:32 WBC Hgb 10.5 L Hct 33.7 L MCV MCH MCHC RDW Lymph % (Auto) [place] % (Auto) Lymph # [place] # Seg Neutrophils % Seg Neutrophils # PT INR 1.16 H APTT 46.1 H D-Dimer Heparin Anti-Xa Level POC ABG pO2 BUN Creatinine Glucose POC Glucose 113 H Hemoglobin A1c Lactic Acid Lactate Dehydrogenase C-Reactive Protein Albumin Fluid Total Protein 09/16/16 09/16/16 09/17/16 11:30 15:30 06:11 WBC Hgb Hct MCV MCH MCHC RDW Lymph % (Auto) [place] % (Auto) Lymph # [place] # Seg Neutrophils % Seg Neutrophils # PT INR 1.16 H APTT D-Dimer Heparin Anti-Xa Level POC ABG pO2 BUN Creatinine Glucose POC Glucose 120 H 142 H Hemoglobin A1c Lactic Acid Lactate Dehydrogenase C-Reactive Protein Albumin Fluid Total Protein 09/17/16 09/17/16 09/17/16 06:11 06:11 17:20 WBC Hgb 10.3 L Hct 32.8 L MCV 69 L MCH 22 L MCHC RDW 16.3 H Lymph % (Auto) 12.4 L [place] % (Auto) 10.8 H Lymph # [place] # 1.1 H Seg Neutrophils % 74.8 H Seg Neutrophils # PT INR APTT D-Dimer Heparin Anti-Xa Level POC ABG pO2 BUN 8 L Creatinine 0.7 L Glucose 106 H POC Glucose 161 H Hemoglobin A1c Lactic Acid Lactate Dehydrogenase C-Reactive Protein Albumin Fluid Total Protein 09/17/16 09/17/16 09/18/16 17:40 20:19 04:21 WBC Hgb Hct MCV MCH MCHC RDW Lymph % (Auto) [place] % (Auto) Lymph # [place] # Seg Neutrophils % Seg Neutrophils # PT INR 1.18 H APTT D-Dimer Heparin Anti-Xa Level < 0.10 L POC ABG pO2 BUN Creatinine Glucose POC Glucose 107 H Hemoglobin A1c Lactic Acid Lactate Dehydrogenase C-Reactive Protein Albumin Fluid Total Protein 09/18/16 09/18/16 09/18/16 04:21 04:21 08:40 WBC 11.3 H Hgb 10.3 L Hct 32.6 L MCV 68 L MCH 22 L MCHC RDW 16.2 H Lymph % (Auto) [place] % (Auto) 9.2 H Lymph # [place] # 1.0 H Seg Neutrophils % 75.0 H Seg Neutrophils # 8.5 H PT INR APTT D-Dimer Heparin Anti-Xa Level POC ABG pO2 BUN 7 L Creatinine 0.7 L Glucose 112 H POC Glucose 130 H Hemoglobin A1c Lactic Acid Lactate Dehydrogenase C-Reactive Protein Albumin Fluid Total Protein 09/18/16 09/19/16 09/19/16 12:19 08:50 09:22 WBC Hgb Hct MCV MCH MCHC RDW Lymph % (Auto) [place] % (Auto) Lymph # [place] # Seg Neutrophils % Seg Neutrophils # PT INR 1.17 H APTT D-Dimer Heparin Anti-Xa Level POC ABG pO2 BUN Creatinine Glucose POC Glucose 286 H 173 H Hemoglobin A1c Lactic Acid Lactate Dehydrogenase C-Reactive Protein Albumin Fluid Total Protein 09/19/16 09/20/16 09/20/16 21:15 06:41 06:41 WBC Hgb 10.2 L Hct 32.5 L MCV 68 L MCH 21 L MCHC 31 L RDW 16.2 H Lymph % (Auto) [place] % (Auto) 8.8 H Lymph # [place] # Seg Neutrophils % 74.5 H Seg Neutrophils # PT INR 1.18 H APTT D-Dimer Heparin Anti-Xa Level POC ABG pO2 BUN Creatinine Glucose POC Glucose 129 H Hemoglobin A1c Lactic Acid Lactate Dehydrogenase C-Reactive Protein Albumin Fluid Total Protein 09/20/16 06:41 WBC Hgb Hct MCV MCH MCHC RDW Lymph % (Auto) [place] % (Auto) Lymph # [place] # Seg Neutrophils % Seg Neutrophils # PT INR APTT D-Dimer Heparin Anti-Xa Level POC ABG pO2 BUN 6 L Creatinine 0.6 L Glucose 116 H POC Glucose Hemoglobin A1c Lactic Acid Lactate Dehydrogenase C-Reactive Protein Albumin Fluid Total Protein
--- NOTE | 2016-09-20 19:27 | Progress Note ---
Assessment and Plan - Patient Problems (1) Acute hypoxemic respiratory failure Current Visit: Yes Status: Acute Plan to address problem: Pulmonary workup is in progress for left lung atelectasis and collapse. (2) Atrial flutter Current Visit: Yes Status: Acute Qualifiers: Atrial flutter type: A Plan to address problem: We'll continue rate control of atrial fibrillation. Subjective Date of service: 09/20/16 Principal diagnosis: Atrial Fib with RVR; Acute Hypoxemic Resp Failure Interval history: The patient is comfortable, no acute distress. There are no new cardiac complaints. Objective Vital Signs Temp Pulse Pulse Pulse Pulse Pulse Resp 09/20/16 16:30 97.7 F 100 H 18 09/20/16 13:50 95 H 09/20/16 13:40 94 H 09/20/16 12:06 78 09/20/16 12:04 78 09/20/16 11:30 97.7 F 77 18 09/20/16 08:52 09/20/16 08:00 97.5 F L 93 H 80 20 09/20/16 07:50 92 H 09/20/16 05:14 98.6 F 72 20 09/20/16 02:47 85 09/20/16 02:36 83 09/20/16 00:05 97.6 F 94 H 18 09/19/16 20:40 09/19/16 20:34 90 22 09/19/16 20:09 98.9 F 80 18 09/19/16 19:40 104 H 09/19/16 19:30 89 Resp Resp Resp BP Pulse Ox 09/20/16 16:30 136/72 99 09/20/16 13:50 18 09/20/16 13:40 18 09/20/16 12:06 09/20/16 12:04 09/20/16 11:30 146/85 100 09/20/16 08:52 98 09/20/16 08:00 18 132/80 98 09/20/16 07:50 18 09/20/16 05:14 120/68 98 09/20/16 02:47 20 09/20/16 02:36 20 09/20/16 00:05 121/68 94 09/19/16 20:40 22 09/19/16 20:34 94 09/19/16 20:09 126/71 98 09/19/16 19:40 20 09/19/16 19:30 20 100 - Physical Examination General: No Apparent Distress HEENT: Positive: PERRL Neck: Positive: trachea midline Cardiac: Positive: irregularly irregular Lungs: Positive: Decreased Breath Sounds Neuro: Positive: Grossly Intact Abdomen: Positive: Soft Skin: Positive: Clear Extremities: Absent: edema - Labs and Meds Coagulation 09/20/16 Range/Units 06:41 PT 14.9 (12.2-14.9) Sec. INR 1.18 H (0.87-1.13) CBC 09/20/16 Range/Units 06:41 WBC 8.9 (4.5-11.0) K/mm3 RBC 4.75 (3.65-5.03) M/mm3 Hgb 10.2 L (11.8-15.2) gm/dl Hct 32.5 L (35.5-45.6) % Plt Count 353 (140-440) K/mm3 Lymph # 1.3 (1.2-5.4) K/mm3 [place] # 0.8 (0.0-0.8) K/mm3 Eos # 0.1 (0.0-0.4) K/mm3 Baso # 0.1 (0.0-0.1) K/mm3 Comprehensive Metabolic Panel 09/20/16 Range/Units 06:41 Sodium 142 (137-145) mmol/L Potassium 3.8 (3.6-5.0) mmol/L Chloride 102.3 (98-107) mmol/L Carbon Dioxide 27 (22-30) mmol/L BUN 6 L (9-20) mg/dL Creatinine 0.6 L (0.8-1.5) mg/dL Glucose 116 H (75-100) mg/dL Calcium 9.4 (8.4-10.2) mg/dL - Imaging and Cardiology EKG: report reviewed (Afib with rvr)
[2016-09-20] MEDS: ZOCOR PO SCH (22:22)
--- NOTE | 2016-09-20 23:43 | Consultation ---
History of Present Illness - Reason for Consult Consult date: 09/20/16 New lung cancer Requesting physician: DEANGELO STOKES - History of Present Illness Thank you for this consult, patient seen/examined, record reviewed, and case d/ w patient, his questions answered.Kindly asked to see this gentle man for reasons of newly dx invasive squamous cell lung cancer dx via Bronch washing/ bx. As per his account, he presented for problem breathing /sob/left shoulder pain. ER w/u revealed pleural effusion/ left supra hilar mass. He also claimed he had lost 70# in a period of 3months. He also complains of on/ off headache. since resolvement of the pleural effusion, his pain has gotten better.He smoked heavily until 20yrs ago. He has developed hoarse voice. He will need full staging w/u. If he is a stage 3b, as he may be now, he may not be a candidate for surgery. Past History Past Medical History: diabetes, hypertension, hyperlipidemia, other (BPH) Past Surgical History: No surgical history Social history: lives with family. denies: smoking, alcohol abuse Family history: hypertension Medications and Allergies Allergies Allergy/AdvReac Type Severity Reaction Status Date / Time iodine Allergy Swelling Verified 09/09/16 12:04 Home Medications Medication Instructions Recorded Confirmed Last Taken Type Metformin HCl [Glucophage] 1,000 mg PO BID 09/07/16 09/07/16 Unknown History Simvastatin [Zocor TAB] 40 mg PO QHS 09/07/16 09/07/16 Unknown History Tamsulosin [Flomax] 0.4 mg PO QDAY 09/07/16 09/07/16 Unknown History glipiZIDE [Glucotrol] 5 mg PO ADAM 09/07/16 09/07/16 Unknown History Active Meds: Active Medications Acetaminophen (Tylenol) 650 mg PO Q4H PRN PRN Reason: Pain MILD(1-3)/Fever >100.5/CHO Albuterol (Proventil) 2.5 mg IH Q3HRT PRN PRN Reason: Shortness Of Breath Albuterol/Ipratropium (Duoneb 0.5 Mg-3 Mg/3 Ml Soln) 1 ampul IH Q6HRT BETY Last Admin: 09/20/16 19:27 Dose: 1 ampul Bisacodyl (Dulcolax) 10 mg FL QDAY PRN PRN Reason: Constipation unrelieved by MOM Diltiazem HCl (Cardizem Cd) 240 mg PO QDAY [facility] Last Admin: 09/20/16 12:06 Dose: 240 mg Enoxaparin Sodium (Lovenox) 100 mg SUB-Q Q12HR [facility] Last Admin: 09/20/16 22:22 Dose: 100 mg Famotidine (Pepcid) 20 mg PO QDAY [facility] Last Admin: 09/20/16 12:08 Dose: 20 mg Glipizide (Glucotrol) 5 mg PO QDDIAB [facility] Last Admin: 09/20/16 08:44 Dose: 5 mg Hydralazine HCl (Apresoline) 50 mg PO Q8HR PRN PRN Reason: Hypertension Last Admin: 09/19/16 10:13 Dose: 50 mg Hydromorphone HCl (Dilaudid) 0.5 mg IV Q3H PRN PRN Reason: Pain , Severe (7-10) Insulin Human Regular (Novolin R) 0 units SUB-Q ACHS [facility] PRN Reason: Protocol Last Admin: 09/20/16 19:42 Dose: Not Given Losartan Potassium (Cozaar) 100 mg PO QDAY [facility] Last Admin: 09/20/16 12:04 Dose: 100 mg Magnesium Hydroxide (Milk Of Magnesia) 30 ml PO Q4H PRN PRN Reason: Constipation Last Admin: 09/19/16 10:09 Dose: 30 ml Oxycodone/Acetaminophen (Percocet 5/325) 1 tab PO Q6H PRN PRN Reason: Pain, Moderate (4-6) Last Admin: 09/18/16 16:11 Dose: 1 tab Simvastatin (Zocor) 40 mg PO QHS [facility] Last Admin: 09/20/16 22:22 Dose: 40 mg Tamsulosin HCl (Flomax) 0.4 mg PO QDAY [facility] Last Admin: 09/20/16 12:07 Dose: 0.4 mg Review of Systems Constitutional: weight loss, weakness, poor appetite Cardiovascular: shortness of breath, dyspnea on exertion Respiratory: shortness of breath Gastrointestinal: loss of appetite Exam - Constitutional Vitals: Temp Pulse Resp BP Pulse Ox 97.8 F 82 18 157/98 94 09/20/16 20:01 09/20/16 20:01 09/20/16 20:01 09/20/16 20:01 09/20/16 20:01 General appearance: Present: mild distress, well-nourished - EENT Eyes: Present: PERRL ENT: hearing intact, clear oral mucosa - Neck Neck: Present: supple, normal ROM - Respiratory Respiratory: bilateral: diminished, rhonchi - Cardiovascular Heart Sounds: Present: S1 & S2. Absent: rub, click - Extremities Extremities: pulses symmetrical, No edema Peripheral Pulses: within normal limits - Abdominal General gastrointestinal: Present: soft, non-tender, non-distended, normal bowel sounds Male genitourinary: Present: deferred - Rectal Rectal Exam: deferred - Integumentary Integumentary: Present: clear, warm, dry - Musculoskeletal Musculoskeletal: gait normal, strength equal bilaterally - Psychiatric Psychiatric: appropriate mood/affect, intact judgment & insight - Neurologic Neurologic: CNII-XII intact, moves all extremities Results - Labs CBC & Chem 7: 09/20/16 06:41 09/20/16 06:41 Labs: Abnormal lab results 09/20/16 09/20/16 09/20/16 Range/Units 06:41 06:41 06:41 Hgb 10.2 L (11.8-15.2) gm/dl Hct 32.5 L (35.5-45.6) % MCV 68 L (84-94) fl MCH 21 L (28-32) pg MCHC 31 L (32-34) % RDW 16.2 H (13.2-15.2) % [place] % (Auto) 8.8 H (0.0-7.3) % Seg Neutrophils % 74.5 H (40.0-70.0) % INR 1.18 H (0.87-1.13) BUN 6 L (9-20) mg/dL Creatinine 0.6 L (0.8-1.5) mg/dL Glucose 116 H (75-100) mg/dL POC Glucose (70-105) 09/20/16 09/20/16 09/20/16 Range/Units 08:06 16:48 21:04 Hgb (11.8-15.2) gm/dl Hct (35.5-45.6) % MCV (84-94) fl MCH (28-32) pg MCHC (32-34) % RDW (13.2-15.2) % [place] % (Auto) (0.0-7.3) % Seg Neutrophils % (40.0-70.0) % INR (0.87-1.13) BUN (9-20) mg/dL Creatinine (0.8-1.5) mg/dL Glucose (75-100) mg/dL POC Glucose 113 H 107 H 121 H (70-105) Assessment and Plan - Patient Problems (1) Acute hypoxemic respiratory failure Current Visit: Yes Status: Acute Plan to address problem: oxygen support. (2) Lung cancer Current Visit: Yes Status: Acute Qualifiers: Laterality: L Lung location: L Plan to address problem: will do staging w/up (3) SOB (shortness of breath) on exertion Current Visit: Yes Status: Acute Plan to address problem: continue with oxygen (4) Headache Current Visit: Yes Status: Acute Qualifiers: Headache type: H Headache chronicity pattern: H Intractability: I Plan to address problem: Will do ct of the brain
[2016-09-21] MEDS: DUONEB 0.5 MG-3 MG/3 ML SOLN IH SCH ×4 (02:00→21:52)
[2016-09-21 08:21] LABS: INR 1.21 (0.87-1.13)
--- NOTE | 2016-09-21 10:32 | Cat Scan Report ---
CT scan of head without contrast: History: Staging of cancer. Findings: Ventricles are normal in size and midline in location. Periventricular low-attenuation. No evidence of acute ischemia or hemorrhage. No extra-axial fluid collection. Normal brainstem and cerebellum. Normal sinuses and master air cells. Impression: Small vessel ischemic changes. No acute intracranial abnormality.
--- NOTE | 2016-09-21 10:39 | Cat Scan Report ---
CT scan of abdomen and pelvis without IV contrast: History: Staging of cancer. Findings: Moderate left pleural effusion. No pericardial effusion. Normal lung bases. 2.2 cm circumscribed hypodensity right lobe of the liver with adjacent 1.9 cm circumscribed hypodensity. Normal gallbladder pancreas and spleen. Normal adrenals. Nonobstructing 3 mm calculus left kidney and 1 mm right kidney. Normal bladder. No free intraperitoneal fluid or air. No evidence of adenopathy. Atherosclerotic calcified abdominal aorta without aneurysm. Gaseous colon with moderate volume stool in colon. Impression: Hypodensities liver probably cyst. Sonographic correlation advised. Diverticulosis sigmoid colon. Nonobstructing 3 mm calculus left kidney and 1 mm calculus right kidney.
[2016-09-21] MEDS: GLUCOTROL PO SCH (10:56)
[2016-09-21] MEDS: LOVENOX SUB-Q SCH ×2 (10:56→22:15)
[2016-09-21] MEDS: CARDIZEM CD PO SCH (10:56)
[2016-09-21] MEDS: PEPCID PO SCH (10:56)
[2016-09-21] MEDS: FLOMAX PO SCH (10:57)
[2016-09-21] MEDS: COZAAR PO SCH (10:57)
--- NOTE | 2016-09-21 13:28 | Progress Note ---
Assessment and Plan Assessment and plan: -- Invasive squamous cell carcinoma of lung moderate differentiation Oncology pulmonary following Workup is in progress --Atrial Flutter with rapid ventricular rate Rate controlled, continue Cardizem, continue Lovenox therapeutic dose Cardiology following --Type 2 diabetes mellitus, moderate control Accu-Chek sliding scale coverage and ADA diet and insulin --BPH continue Flomax --Dyslipidemia, stable on lipid-lowering medications Low-cholesterol diet --Obesity counseling done dietary modification and exercise as tolerated and weight reduction when medically stable --Full CODE STATUS --DVT prophylaxis patient is already on heparin Follow Oncology evaluation and recommendations Rest of the workup can be done as outpatient if stable Patient's condition treatment plan discussed in detail with the patient family members at the bedside as well as the case management History Interval history: Patient seen and evaluated medical records reviewed No new events reported by the nursing staff Malignancy staging is in progress oncology following Alert awake oriented 3 not in acute distress Hospitalist Physical - Constitutional Vitals: Temp Pulse Resp BP Pulse Ox 97.9 F 100 H 20 149/104 97 09/21/16 08:00 09/21/16 12:07 09/21/16 12:07 09/21/16 12:07 09/21/16 08:00 General appearance: Present: no acute distress, well-nourished - EENT Eyes: Present: PERRL, EOM intact - Neck Neck: Present: supple, normal ROM - Respiratory Respiratory effort: normal Respiratory: right: rhonchi, bilateral: diminished - Cardiovascular Rhythm: regular Heart Sounds: Present: S1 & S2 - Extremities Extremities: no ischemia, pulses intact, pulses symmetrical Peripheral Pulses: within normal limits - Abdominal General gastrointestinal: soft, non-tender, non-distended, normal bowel sounds - Integumentary Integumentary: Present: clear, warm - Psychiatric Psychiatric: appropriate mood/affect, cooperative - Neurologic Neurologic: CNII-XII intact, moves all extremities Results - Labs CBC & Chem 7: 09/20/16 06:41 09/20/16 06:41 Labs: Laboratory Last Values WBC 8.9 K/mm3 (4.5-11.0) 09/20/16 06:41 RBC 4.75 M/mm3 (3.65-5.03) 09/20/16 06:41 Hgb 10.2 gm/dl (11.8-15.2) L 09/20/16 06:41 Hct 32.5 % (35.5-45.6) L 09/20/16 06:41 MCV 68 fl (84-94) L 09/20/16 06:41 MCH 21 pg (28-32) L 09/20/16 06:41 MCHC 31 % (32-34) L 09/20/16 06:41 RDW 16.2 % (13.2-15.2) H 09/20/16 06:41 Plt Count 353 K/mm3 (140-440) 09/20/16 06:41 Lymph % (Auto) 14.2 % (13.4-35.0) 09/20/16 06:41 [place] % (Auto) 8.8 % (0.0-7.3) H 09/20/16 06:41 Eos % (Auto) 1.5 % (0.0-4.3) 09/20/16 06:41 Baso % (Auto) 1.0 % (0.0-1.8) 09/20/16 06:41 Lymph # 1.3 K/mm3 (1.2-5.4) 09/20/16 06:41 [place] # 0.8 K/mm3 (0.0-0.8) 09/20/16 06:41 Eos # 0.1 K/mm3 (0.0-0.4) 09/20/16 06:41 Baso # 0.1 K/mm3 (0.0-0.1) 09/20/16 06:41 Seg Neutrophils % 74.5 % (40.0-70.0) H 09/20/16 06:41 Seg Neutrophils # 6.6 K/mm3 (1.8-7.7) 09/20/16 06:41 PT 15.2 Sec. (12.2-14.9) H 09/21/16 06:44 INR 1.21 (0.87-1.13) H 09/21/16 06:44 APTT 46.1 Sec. (24.2-36.6) H 09/16/16 06:22 D-Dimer 741.42 ng/mlDDU (0-234) H 09/08/16 13:14 Heparin Anti-Xa Level < 0.10 U.I./ml (0.3-0.7) L 09/17/16 17:40 POC ABG pH 7.412 (7.35-7.45) 09/09/16 18:09 POC ABG pCO2 42.1 (35-45) 09/09/16 18:09 POC ABG pO2 73 (80-105) L 09/09/16 18:09 POC ABG HCO3 26.8 09/09/16 18:09 POC ABG Total CO2 28 09/09/16 18:09 POC ABG O2 Sat 95 09/09/16 18:09 POC ABG Base Excess 2 09/09/16 18:09 VBG pH 7.369 (7.320-7.420) 09/07/16 17:50 FiO2 28 % 09/09/16 18:09 Sodium 142 mmol/L (137-145) 09/20/16 06:41 Potassium 3.8 mmol/L (3.6-5.0) 09/20/16 06:41 Chloride 102.3 mmol/L (98-107) 09/20/16 06:41 Carbon Dioxide 27 mmol/L (22-30) 09/20/16 06:41 Anion Gap 17 mmol/L 09/20/16 06:41 BUN 6 mg/dL (9-20) L 09/20/16 06:41 Creatinine 0.6 mg/dL (0.8-1.5) L 09/20/16 06:41 Estimated GFR > 60 ml/min 09/20/16 06:41 BUN/Creatinine Ratio 10.00 % 09/20/16 06:41 Glucose 116 mg/dL (75-100) H 09/20/16 06:41 POC Glucose 126 (70-105) H 09/21/16 11:13 Hemoglobin A1c 6.6 % (4-6) H 09/08/16 04:51 Lactic Acid 1.2 mmol/L (0.7-2.0) 09/09/16 03:59 Calcium 9.4 mg/dL (8.4-10.2) 09/20/16 06:41 Magnesium 1.8 mg/dL (1.7-2.3) 09/09/16 03:59 Total Bilirubin 0.4 mg/dL (0.1-1.2) 09/08/16 04:51 AST 16 units/L (5-40) 09/08/16 04:51 ALT 20 units/L (7-56) 09/08/16 04:51 Alkaline Phosphatase 82 units/L (35-129) 09/08/16 04:51 Lactate Dehydrogenase 208 units/L (91-180) H 09/10/16 03:49 Total Creatine Kinase 34 units/L (55-170) L 09/07/16 18:06 Troponin T < 0.010 ng/mL (0.00-0.029) 09/07/16 17:50 C-Reactive Protein 5.70 mg/dL (0.00-1.30) H 09/08/16 13:14 NT-Pro-B Natriuret Pep 547.2 pg/mL (0-900) 09/07/16 17:50 Total Protein 6.8 g/dL (6.3-8.2) 09/09/16 21:30 Albumin 2.9 g/dL (3.9-5) L 09/08/16 04:51 Albumin/Globulin Ratio 0.7 % 09/08/16 04:51 TSH 0.982 mlU/mL (0.270-4.200) 09/07/16 18:06 Free T4 1.12 ng/dL (0.76-1.46) 09/07/16 17:50 Fluid Total Protein 4.6 (15.0-45.0) L 09/12/16 12:46 Fluid LDH 172 09/12/16 12:46 Ketones 0.1 mmol/L (-0.28) 09/07/16 18:06
--- NOTE | 2016-09-21 15:57 | Progress Note ---
Assessment and Plan Persistent Atrial fib/flutter, likely chronic in the setting of his pulmonary disease. rate controlled on oral cardizem long-term oral anticoagulation will be deferred until his left lung pathology is optimally worked up and treated. Left Pleural effusion Left lung Atelectasis Diabetes mellitus Hypertension Echo revealing LVEF 45-50% Recommendations: Continue rate control with AV travis blocking agents for his persistent afib/ flutter. Subjective Date of service: 09/21/16 Principal diagnosis: Atrial Fib with RVR; Acute Hypoxemic Resp Failure Interval history: Patient has no cardiac complaints. Objective Vital Signs Temp Pulse Pulse Pulse Pulse Pulse Resp 09/21/16 14:33 96 H 09/21/16 14:18 94 H 09/21/16 12:07 100 H 20 09/21/16 09:12 98 H 09/21/16 08:57 96 H 09/21/16 08:26 87 09/21/16 08:00 97.9 F 68 18 09/21/16 05:23 97.6 F 84 18 09/21/16 00:16 98.2 F 62 18 09/20/16 22:00 09/20/16 20:01 97.8 F 82 18 09/20/16 19:37 106 H 09/20/16 19:27 104 H 09/20/16 16:30 97.7 F 100 H 18 Resp Resp BP Pulse Ox 09/21/16 14:33 16 09/21/16 14:18 16 09/21/16 12:07 149/104 09/21/16 09:12 16 09/21/16 08:57 16 09/21/16 08:26 09/21/16 08:00 150/91 97 09/21/16 05:23 148/64 99 09/21/16 00:16 158/85 98 09/20/16 22:00 97 09/20/16 20:01 157/98 94 09/20/16 19:37 20 09/20/16 19:27 20 09/20/16 16:30 136/72 99 - Physical Examination General: No Apparent Distress HEENT: Positive: PERRL Neck: Positive: trachea midline Cardiac: Positive: irregularly irregular Lungs: Positive: Decreased Breath Sounds Neuro: Positive: Grossly Intact Extremities: Absent: edema - Labs and Meds Coagulation 09/21/16 Range/Units 06:44 PT 15.2 H (12.2-14.9) Sec. INR 1.21 H (0.87-1.13) - Imaging and Cardiology EKG: report reviewed (Afib with rvr)
--- NOTE | 2016-09-21 20:39 | Progress Note ---
Assessment and Plan Patient alert, awake, Oriented. No acute respiratory distress.Resting on 2 litres O2.O2 satuaration 97%.On 2 litres O2. Bronchial brushings reported positive for malignant cells. 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 Oncology consulted. - Patient Problems (1) Mass of left lung Current Visit: Yes Status: Acute Plan to address problem: Bronchial brushings reported positive for malignant cells. 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 Oncology consulted. (2) Acute hypoxemic respiratory failure Current Visit: Yes Status: Acute Plan to address problem: O2 supplementation 2 litres. Albuterol/atrovent aerosol treatments q 6 hours. (3) Pleural effusion, left Current Visit: Yes Status: Acute Plan to address problem: S/P left thoracentesis. Pleural fluid Protien 4.6, LDH 172 Pleural fluid is exudate. (4) Atelectasis of left lung Current Visit: Yes Status: Acute Plan to address problem: Albuterol/atrovent aerosol treatments q 6 hours. Incentive spirometry Chest PT. Subjective Date of service: 09/21/16 Principal diagnosis: Atrial Fib with RVR; Acute Hypoxemic Resp Failure Interval history: Patient alert, awake, Oriented. No acute respiratory distress.Resting on 2 litres O2.O2 satuaration 97%.On 2 litres O2. Bronchial brushings reported positive for malignant cells. 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 Oncology consulted. Objective Vital Signs - 12hr 09/21/16 09/21/16 09/21/16 08:57 09:12 12:07 Temperature Pulse Rate [ 96 H 98 H Bilateral Throughout] Pulse Rate [ From Monitor] Pulse Rate [ 100 H Right Radial] Respiratory 20 Rate Respiratory 16 16 Rate [Bilateral Throughout] Blood Pressure 149/104 [Left Arm] Blood Pressure [Right Arm] O2 Sat by Pulse Oximetry 09/21/16 09/21/16 09/21/16 14:18 14:33 16:00 Temperature 98.1 F Pulse Rate [ 94 H 96 H Bilateral Throughout] Pulse Rate [ 102 H From Monitor] Pulse Rate [ Right Radial] Respiratory 18 Rate Respiratory 16 16 Rate [Bilateral Throughout] Blood Pressure [Left Arm] Blood Pressure 144/88 [Right Arm] O2 Sat by Pulse 100 Oximetry 09/21/16 20:00 Temperature 98.3 F Pulse Rate [ Bilateral Throughout] Pulse Rate [ 103 H From Monitor] Pulse Rate [ Right Radial] Respiratory 18 Rate Respiratory Rate [Bilateral Throughout] Blood Pressure 138/81 [Left Arm] Blood Pressure [Right Arm] O2 Sat by Pulse 97 Oximetry Constitutional: no acute distress, alert Eyes: non-icteric ENT: oropharynx moist Neck: supple, no lymphadenopathy Effort: normal Ascultation: Left: diminished breath sounds, Bilateral: rhonchi (posterior bases ) Cardiovascular: irregular rhythm Gastrointestinal: normoactive bowel sounds, soft, non-tender, non-distended Integumentary: normal Extremities: no cyanosis, no edema, pulses normal, no ischemia or petechiae Neurologic: normal mental status, non-focal exam, pupils equal and round, motor strength normal and Psychiatric: mood appropriate, affect normal CBC and BMP: 09/20/16 06:41 09/20/16 06:41 ABG, PT/INR, D-dimer: ABG POC ABG pH 7.412 (7.35-7.45) 09/09/16 18:09 POC ABG pCO2 42.1 (35-45) 09/09/16 18:09 POC ABG pO2 73 (80-105) L 09/09/16 18:09 POC ABG HCO3 26.8 09/09/16 18:09 POC ABG Total CO2 28 09/09/16 18:09 POC ABG O2 Sat 95 09/09/16 18:09 PT/INR, D-dimer PT 15.2 Sec. (12.2-14.9) H 09/21/16 06:44 INR 1.21 (0.87-1.13) H 09/21/16 06:44 D-Dimer 741.42 ng/mlDDU (0-234) H 09/08/16 13:14 Abnormal lab findings: Abnormal Labs 09/07/16 09/07/16 09/08/16 22:28 23:36 04:51 WBC Hgb 10.3 L Hct 33.2 L MCV 70 L MCH 22 L MCHC 31 L RDW 15.8 H Lymph % (Auto) [place] % (Auto) 11.2 H Lymph # [place] # 1.1 H Seg Neutrophils % Seg Neutrophils # PT INR APTT D-Dimer Heparin Anti-Xa Level POC ABG pO2 BUN Creatinine Glucose POC Glucose 121 H 119 H Hemoglobin A1c Lactic Acid Lactate Dehydrogenase C-Reactive Protein Albumin Fluid Total Protein 09/08/16 09/08/16 09/08/16 04:51 04:51 07:42 WBC Hgb Hct MCV MCH MCHC RDW Lymph % (Auto) [place] % (Auto) Lymph # [place] # Seg Neutrophils % Seg Neutrophils # PT INR APTT D-Dimer Heparin Anti-Xa Level POC ABG pO2 BUN 7 L Creatinine Glucose 133 H POC Glucose 118 H Hemoglobin A1c 6.6 H Lactic Acid Lactate Dehydrogenase C-Reactive Protein Albumin 2.9 L Fluid Total Protein 09/08/16 09/08/16 09/08/16 13:14 13:14 13:14 WBC Hgb Hct MCV MCH MCHC RDW Lymph % (Auto) [place] % (Auto) Lymph # [place] # Seg Neutrophils % Seg Neutrophils # PT INR APTT D-Dimer 741.42 H Heparin Anti-Xa Level POC ABG pO2 BUN Creatinine Glucose POC Glucose Hemoglobin A1c Lactic Acid 2.5 H* Lactate Dehydrogenase C-Reactive Protein 5.70 H Albumin Fluid Total Protein 09/08/16 09/08/16 09/09/16 15:50 21:42 03:59 WBC Hgb Hct MCV MCH MCHC RDW Lymph % (Auto) [place] % (Auto) Lymph # [place] # Seg Neutrophils % Seg Neutrophils # PT INR APTT D-Dimer Heparin Anti-Xa Level POC ABG pO2 BUN 6 L Creatinine 0.7 L Glucose POC Glucose 69 L 69 L Hemoglobin A1c Lactic Acid Lactate Dehydrogenase C-Reactive Protein Albumin Fluid Total Protein 09/09/16 09/09/16 09/10/16 07:39 18:09 03:49 WBC Hgb 10.7 L Hct 33.9 L MCV MCH MCHC RDW Lymph % (Auto) [place] % (Auto) Lymph # [place] # Seg Neutrophils % Seg Neutrophils # PT INR APTT D-Dimer Heparin Anti-Xa Level POC ABG pO2 73 L BUN Creatinine Glucose POC Glucose 106 H Hemoglobin A1c Lactic Acid Lactate Dehydrogenase C-Reactive Protein Albumin Fluid Total Protein 09/10/16 09/10/16 09/10/16 03:49 08:06 11:02 WBC Hgb Hct MCV MCH MCHC RDW Lymph % (Auto) [place] % (Auto) Lymph # [place] # Seg Neutrophils % Seg Neutrophils # PT INR APTT D-Dimer Heparin Anti-Xa Level POC ABG pO2 BUN Creatinine Glucose POC Glucose 123 H 121 H Hemoglobin A1c Lactic Acid Lactate Dehydrogenase 208 H C-Reactive Protein Albumin Fluid Total Protein 09/10/16 09/10/16 09/10/16 12:14 15:52 21:11 WBC Hgb Hct MCV MCH MCHC RDW Lymph % (Auto) [place] % (Auto) Lymph # [place] # Seg Neutrophils % Seg Neutrophils # PT 15.6 H INR 1.25 H APTT D-Dimer Heparin Anti-Xa Level POC ABG pO2 BUN Creatinine Glucose POC Glucose 162 H 156 H Hemoglobin A1c Lactic Acid Lactate Dehydrogenase C-Reactive Protein Albumin Fluid Total Protein 09/10/16 09/10/16 09/11/16 22:58 23:47 05:47 WBC Hgb 10.7 L Hct 34.7 L MCV 69 L MCH 21 L MCHC 31 L RDW 15.8 H Lymph % (Auto) 10.9 L [place] % (Auto) 9.4 H Lymph # 1.1 L [place] # 1.0 H Seg Neutrophils % 78.1 H Seg Neutrophils # 8.1 H PT INR APTT D-Dimer Heparin Anti-Xa Level 0.25 L POC ABG pO2 BUN Creatinine Glucose POC Glucose 141 H Hemoglobin A1c Lactic Acid Lactate Dehydrogenase C-Reactive Protein Albumin Fluid Total Protein 09/11/16 09/11/16 09/11/16 05:47 05:47 08:31 WBC Hgb Hct MCV MCH MCHC RDW Lymph % (Auto) [place] % (Auto) Lymph # [place] # Seg Neutrophils % Seg Neutrophils # PT INR APTT D-Dimer Heparin Anti-Xa Level 0.16 L POC ABG pO2 BUN 5 L Creatinine 0.7 L Glucose 121 H POC Glucose 111 H Hemoglobin A1c Lactic Acid Lactate Dehydrogenase C-Reactive Protein Albumin Fluid Total Protein 09/11/16 09/11/16 09/11/16 12:33 13:46 16:58 WBC Hgb Hct MCV MCH MCHC RDW Lymph % (Auto) [place] % (Auto) Lymph # [place] # Seg Neutrophils % Seg Neutrophils # PT INR APTT D-Dimer Heparin Anti-Xa Level < 0.10 L POC ABG pO2 BUN Creatinine Glucose POC Glucose 135 H 69 L Hemoglobin A1c Lactic Acid Lactate Dehydrogenase C-Reactive Protein Albumin Fluid Total Protein 09/12/16 09/12/16 09/12/16 07:52 10:12 11:39 WBC Hgb Hct MCV MCH MCHC RDW Lymph % (Auto) [place] % (Auto) Lymph # [place] # Seg Neutrophils % Seg Neutrophils # PT INR 1.17 H APTT D-Dimer Heparin Anti-Xa Level POC ABG pO2 BUN Creatinine Glucose POC Glucose 112 H 110 H Hemoglobin A1c Lactic Acid Lactate Dehydrogenase C-Reactive Protein Albumin Fluid Total Protein 09/12/16 09/12/16 09/12/16 12:46 17:07 22:36 WBC Hgb Hct MCV MCH MCHC RDW Lymph % (Auto) [place] % (Auto) Lymph # [place] # Seg Neutrophils % Seg Neutrophils # PT INR APTT D-Dimer Heparin Anti-Xa Level POC ABG pO2 BUN Creatinine Glucose POC Glucose 115 H 171 H Hemoglobin A1c Lactic Acid Lactate Dehydrogenase C-Reactive Protein Albumin Fluid Total Protein 4.6 L 09/12/16 09/13/16 09/13/16 23:10 12:40 18:35 WBC Hgb Hct MCV MCH MCHC RDW Lymph % (Auto) [place] % (Auto) Lymph # [place] # Seg Neutrophils % Seg Neutrophils # PT INR APTT D-Dimer Heparin Anti-Xa Level < 0.10 L POC ABG pO2 BUN Creatinine Glucose POC Glucose 142 H 123 H Hemoglobin A1c Lactic Acid Lactate Dehydrogenase C-Reactive Protein Albumin Fluid Total Protein 09/13/16 09/14/16 09/14/16 22:32 06:54 07:29 WBC Hgb 10.3 L Hct 32.4 L D MCV MCH MCHC RDW Lymph % (Auto) [place] % (Auto) Lymph # [place] # Seg Neutrophils % Seg Neutrophils # PT INR APTT D-Dimer Heparin Anti-Xa Level POC ABG pO2 BUN Creatinine Glucose POC Glucose 121 H 133 H Hemoglobin A1c Lactic Acid Lactate Dehydrogenase C-Reactive Protein Albumin Fluid Total Protein 09/14/16 09/15/16 09/15/16 11:28 07:36 21:37 WBC Hgb Hct MCV MCH MCHC RDW Lymph % (Auto) [place] % (Auto) Lymph # [place] # Seg Neutrophils % Seg Neutrophils # PT INR APTT D-Dimer Heparin Anti-Xa Level POC ABG pO2 BUN Creatinine Glucose POC Glucose 112 H 111 H 115 H Hemoglobin A1c Lactic Acid Lactate Dehydrogenase C-Reactive Protein Albumin Fluid Total Protein 09/16/16 09/16/16 09/16/16 06:22 06:22 07:32 WBC Hgb 10.5 L Hct 33.7 L MCV MCH MCHC RDW Lymph % (Auto) [place] % (Auto) Lymph # [place] # Seg Neutrophils % Seg Neutrophils # PT INR 1.16 H APTT 46.1 H D-Dimer Heparin Anti-Xa Level POC ABG pO2 BUN Creatinine Glucose POC Glucose 113 H Hemoglobin A1c Lactic Acid Lactate Dehydrogenase C-Reactive Protein Albumin Fluid Total Protein 09/16/16 09/16/16 09/17/16 11:30 15:30 06:11 WBC Hgb Hct MCV MCH MCHC RDW Lymph % (Auto) [place] % (Auto) Lymph # [place] # Seg Neutrophils % Seg Neutrophils # PT INR 1.16 H APTT D-Dimer Heparin Anti-Xa Level POC ABG pO2 BUN Creatinine Glucose POC Glucose 120 H 142 H Hemoglobin A1c Lactic Acid Lactate Dehydrogenase C-Reactive Protein Albumin Fluid Total Protein 09/17/16 09/17/16 09/17/16 06:11 06:11 17:20 WBC Hgb 10.3 L Hct 32.8 L MCV 69 L MCH 22 L MCHC RDW 16.3 H Lymph % (Auto) 12.4 L [place] % (Auto) 10.8 H Lymph # [place] # 1.1 H Seg Neutrophils % 74.8 H Seg Neutrophils # PT INR APTT D-Dimer Heparin Anti-Xa Level POC ABG pO2 BUN 8 L Creatinine 0.7 L Glucose 106 H POC Glucose 161 H Hemoglobin A1c Lactic Acid Lactate Dehydrogenase C-Reactive Protein Albumin Fluid Total Protein 09/17/16 09/17/16 09/18/16 17:40 20:19 04:21 WBC Hgb Hct MCV MCH MCHC RDW Lymph % (Auto) [place] % (Auto) Lymph # [place] # Seg Neutrophils % Seg Neutrophils # PT INR 1.18 H APTT D-Dimer Heparin Anti-Xa Level < 0.10 L POC ABG pO2 BUN Creatinine Glucose POC Glucose 107 H Hemoglobin A1c Lactic Acid Lactate Dehydrogenase C-Reactive Protein Albumin Fluid Total Protein 09/18/16 09/18/16 09/18/16 04:21 04:21 08:40 WBC 11.3 H Hgb 10.3 L Hct 32.6 L MCV 68 L MCH 22 L MCHC RDW 16.2 H Lymph % (Auto) [place] % (Auto) 9.2 H Lymph # [place] # 1.0 H Seg Neutrophils % 75.0 H Seg Neutrophils # 8.5 H PT INR APTT D-Dimer Heparin Anti-Xa Level POC ABG pO2 BUN 7 L Creatinine 0.7 L Glucose 112 H POC Glucose 130 H Hemoglobin A1c Lactic Acid Lactate Dehydrogenase C-Reactive Protein Albumin Fluid Total Protein 09/18/16 09/19/16 09/19/16 12:19 08:50 09:22 WBC Hgb Hct MCV MCH MCHC RDW Lymph % (Auto) [place] % (Auto) Lymph # [place] # Seg Neutrophils % Seg Neutrophils # PT INR 1.17 H APTT D-Dimer Heparin Anti-Xa Level POC ABG pO2 BUN Creatinine Glucose POC Glucose 286 H 173 H Hemoglobin A1c Lactic Acid Lactate Dehydrogenase C-Reactive Protein Albumin Fluid Total Protein 09/19/16 09/20/16 09/20/16 21:15 06:41 06:41 WBC Hgb 10.2 L Hct 32.5 L MCV 68 L MCH 21 L MCHC 31 L RDW 16.2 H Lymph % (Auto) [place] % (Auto) 8.8 H Lymph # [place] # Seg Neutrophils % 74.5 H Seg Neutrophils # PT INR 1.18 H APTT D-Dimer Heparin Anti-Xa Level POC ABG pO2 BUN Creatinine Glucose POC Glucose 129 H Hemoglobin A1c Lactic Acid Lactate Dehydrogenase C-Reactive Protein Albumin Fluid Total Protein 09/20/16 09/20/16 09/20/16 06:41 08:06 16:48 WBC Hgb Hct MCV MCH MCHC RDW Lymph % (Auto) [place] % (Auto) Lymph # [place] # Seg Neutrophils % Seg Neutrophils # PT INR APTT D-Dimer Heparin Anti-Xa Level POC ABG pO2 BUN 6 L Creatinine 0.6 L Glucose 116 H POC Glucose 113 H 107 H Hemoglobin A1c Lactic Acid Lactate Dehydrogenase C-Reactive Protein Albumin Fluid Total Protein 09/20/16 09/21/16 09/21/16 21:04 06:44 07:45 WBC Hgb Hct MCV MCH MCHC RDW Lymph % (Auto) [place] % (Auto) Lymph # [place] # Seg Neutrophils % Seg Neutrophils # PT 15.2 H INR 1.21 H APTT D-Dimer Heparin Anti-Xa Level POC ABG pO2 BUN Creatinine Glucose POC Glucose 121 H 146 H Hemoglobin A1c Lactic Acid Lactate Dehydrogenase C-Reactive Protein Albumin Fluid Total Protein 09/21/16 11:13 WBC Hgb Hct MCV MCH MCHC RDW Lymph % (Auto) [place] % (Auto) Lymph # [place] # Seg Neutrophils % Seg Neutrophils # PT INR APTT D-Dimer Heparin Anti-Xa Level POC ABG pO2 BUN Creatinine Glucose POC Glucose 126 H Hemoglobin A1c Lactic Acid Lactate Dehydrogenase C-Reactive Protein Albumin Fluid Total Protein
[2016-09-21] MEDS: ZOCOR PO SCH (22:15)
--- NOTE | 2016-09-21 23:36 | Consultation ---
History of Present Illness - Reason for Consult Consult date: 09/21/16 - History of Present Illness Patient seen/examined, labs/scans reviewed, case d/w patient. The scans did not show mets. Past History Past Medical History: diabetes, hypertension, hyperlipidemia, other (BPH) Past Surgical History: No surgical history Social history: lives with family. denies: smoking, alcohol abuse Family history: hypertension Medications and Allergies Allergies Allergy/AdvReac Type Severity Reaction Status Date / Time iodine Allergy Swelling Verified 09/09/16 12:04 Home Medications Medication Instructions Recorded Confirmed Last Taken Type Metformin HCl [Glucophage] 1,000 mg PO BID 09/07/16 09/07/16 Unknown History Simvastatin [Zocor TAB] 40 mg PO QHS 09/07/16 09/07/16 Unknown History Tamsulosin [Flomax] 0.4 mg PO QDAY 09/07/16 09/07/16 Unknown History glipiZIDE [Glucotrol] 5 mg PO ADAM 09/07/16 09/07/16 Unknown History Active Meds: Active Medications Acetaminophen (Tylenol) 650 mg PO Q4H PRN PRN Reason: Pain MILD(1-3)/Fever >100.5/CHO Last Admin: 09/21/16 20:07 Dose: 650 mg Albuterol (Proventil) 2.5 mg IH Q3HRT PRN PRN Reason: Shortness Of Breath Albuterol/Ipratropium (Duoneb 0.5 Mg-3 Mg/3 Ml Soln) 1 ampul IH Q6HRT [facility] Last Admin: 09/21/16 21:52 Dose: 1 ampul Bisacodyl (Dulcolax) 10 mg ID QDAY PRN PRN Reason: Constipation unrelieved by MOM Diltiazem HCl (Cardizem Cd) 240 mg PO QDAY [facility] Last Admin: 09/21/16 10:56 Dose: 240 mg Enoxaparin Sodium (Lovenox) 100 mg SUB-Q Q12HR [facility] Last Admin: 09/21/16 22:15 Dose: 100 mg Famotidine (Pepcid) 20 mg PO QDAY [facility] Last Admin: 09/21/16 10:56 Dose: 20 mg Glipizide (Glucotrol) 5 mg PO QDDIAB [facility] Last Admin: 09/21/16 10:56 Dose: 5 mg Hydralazine HCl (Apresoline) 50 mg PO Q8HR PRN PRN Reason: Hypertension Last Admin: 09/19/16 10:13 Dose: 50 mg Hydromorphone HCl (Dilaudid) 0.5 mg IV Q3H PRN PRN Reason: Pain , Severe (7-10) Insulin Human Regular (Novolin R) 0 units SUB-Q ACHS BETY PRN Reason: Protocol Last Admin: 09/21/16 15:40 Dose: Not Given Losartan Potassium (Cozaar) 100 mg PO QDAY [facility] Last Admin: 09/21/16 10:57 Dose: 100 mg Magnesium Hydroxide (Milk Of Magnesia) 30 ml PO Q4H PRN PRN Reason: Constipation Last Admin: 09/19/16 10:09 Dose: 30 ml Oxycodone/Acetaminophen (Percocet 5/325) 1 tab PO Q6H PRN PRN Reason: Pain, Moderate (4-6) Last Admin: 09/18/16 16:11 Dose: 1 tab Simvastatin (Zocor) 40 mg PO QHS [facility] Last Admin: 09/21/16 22:15 Dose: 40 mg Tamsulosin HCl (Flomax) 0.4 mg PO QDAY [facility] Last Admin: 09/21/16 10:57 Dose: 0.4 mg Review of Systems Constitutional: weakness, poor appetite Exam - Constitutional Vitals: Temp Pulse Resp BP Pulse Ox 98.3 F 90 18 138/81 98 09/21/16 20:00 09/21/16 21:00 09/21/16 21:00 09/21/16 20:00 09/21/16 22:03 General appearance: Present: mild distress, well-nourished - EENT Eyes: Present: PERRL ENT: hearing intact, clear oral mucosa - Neck Neck: Present: supple, normal ROM - Respiratory Respiratory effort: normal Respiratory: bilateral: CTA - Cardiovascular Heart Sounds: Present: S1 & S2. Absent: rub, click - Extremities Extremities: pulses symmetrical, No edema Peripheral Pulses: within normal limits - Abdominal General gastrointestinal: Present: soft, non-tender, non-distended, normal bowel sounds Male genitourinary: Present: deferred - Rectal Rectal Exam: deferred - Integumentary Integumentary: Present: clear, warm, dry - Musculoskeletal Musculoskeletal: gait normal, strength equal bilaterally - Psychiatric Psychiatric: appropriate mood/affect, intact judgment & insight - Neurologic Neurologic: CNII-XII intact, moves all extremities Results - Labs CBC & Chem 7: 09/20/16 06:41 09/20/16 06:41 Labs: Abnormal lab results 09/21/16 09/21/16 09/21/16 Range/Units 06:44 07:45 11:13 PT 15.2 H (12.2-14.9) Sec. INR 1.21 H (0.87-1.13) POC Glucose 146 H 126 H (70-105) Assessment and Plan - Patient Problems (1) Acute hypoxemic respiratory failure Current Visit: Yes Status: Acute Plan to address problem: oxygen support. (2) Lung cancer Current Visit: Yes Status: Acute Qualifiers: Laterality: L Lung location: L Plan to address problem: will do staging w/up completed, and ok. (3) SOB (shortness of breath) on exertion Current Visit: Yes Status: Acute Plan to address problem: continue with oxygen (4) Headache Current Visit: Yes Status: Acute Qualifiers: Headache type: H Headache chronicity pattern: H Intractability: I Plan to address problem: Will do ct of the brain done, and nl.
[2016-09-22] MEDS: DUONEB 0.5 MG-3 MG/3 ML SOLN IH SCH ×3 (03:16→13:39)
[2016-09-22 07:37] LABS: INR 1.17 (0.87-1.13)
--- NOTE | 2016-09-22 10:29 | Discharge Summary ---
Providers - Providers Date of Admission: 09/07/16 20:46 Date of discharge: 09/22/16 Attending physician: DEANGELO STOKES 09/08/16 01:41 Consult to Physician [CONS] Urgent Consulting Provider: LETTY OLSEN Reason For Exam: Cardizem/ccu admit Place consult to:: answering service Notified:: yes Time called:: 20:56 Comment:: called on 09-08-16 @ 205509/20/16 12:21 Consult to Physician [CONS] Routine Consulting Provider: SANDRA BAH Reason For Exam: invasive sq cell ca of lung Place consult to:: Dr. Bah Notified:: Brenda ACEVEDO Phone number called:: Was contact made?: Yes If yes, spoke with:: Lucinda-Office Time called:: 13:14 Primary care physician: MARIIA BELL Hospitalization Condition: Critical Disposition: DC/TX HOME UNDER HOME HEALTH Core Measure Documentation - Palliative Care Palliative Care/ Comfort Measures: Not Applicable - Core Measures Any of the following diagnoses?: none Exam - Constitutional Vitals: Temp Pulse Resp BP Pulse Ox 97.7 F 104 H 18 135/87 100 09/22/16 07:18 09/22/16 07:55 09/22/16 07:55 09/22/16 07:18 09/22/16 07:55 General appearance: Present: no acute distress, well-nourished - EENT Eyes: Present: PERRL, EOM intact - Neck Neck: Present: supple, normal ROM - Respiratory Respiratory effort: normal Respiratory: bilateral: diminished, rhonchi - Cardiovascular Rhythm: irregularly irregular Heart Sounds: Present: S1 & S2 - Extremities Extremities: no ischemia, pulses intact, pulses symmetrical Peripheral Pulses: within normal limits - Abdominal General gastrointestinal: Present: soft, non-tender, non-distended, normal bowel sounds - Integumentary Integumentary: Present: clear, warm - Musculoskeletal Musculoskeletal: strength equal bilaterally, generalized weakness - Psychiatric Psychiatric: appropriate mood/affect, cooperative - Neurologic Neurologic: CNII-XII intact, moves all extremities Plan Activity: advance as tolerated, fall precautions Diet: diabetic, other (cardiac diet) Durable Medical Equipment Needed Upon Discharge: Oxygen (2lt [place] home o2 if needed) Follow up with: MARIIA BELL MD [Primary Care Provider] - 3-5 Days BERTHA LOZANO MD [Staff Physician] - 7 Days SANDRA BAH DO [Staff Physician] - 7 Days Forms: Warfarin Discharge Instruction Prescriptions: Aspirin EC [Aspirin Enteric Coated TAB] 325 mg PO QDAY #30 tablet. Diltiazem Cd [Cardizem CD] 240 mg PO QDAY #30 capsule Famotidine [Pepcid] 20 mg PO QDAY #30 tablet hydrALAZINE [Apresoline TAB] 50 mg PO Q8HR PRN #90 tablet PRN Reason: Hypertension Losartan [Cozaar] 100 mg PO QDAY #30 tablet oxyCODONE /ACETAMINOPHEN [Percocet 5/325 mg] 1 tab PO Q6H PRN #20 tablet PRN Reason: Pain, Moderate (4-6)
[2016-09-22] MEDS: CARDIZEM CD PO SCH (10:53)
[2016-09-22] MEDS: COZAAR PO SCH (10:54)
[2016-09-22] MEDS: LOVENOX SUB-Q SCH (10:54)
[2016-09-22] MEDS: PEPCID PO SCH (10:54)
[2016-09-22] MEDS: FLOMAX PO SCH (10:54)
--- NOTE | 2016-09-22 12:02 | Progress Note ---
Assessment and Plan Persistent Atrial fib/flutter, likely chronic in the setting of his pulmonary disease. rate controlled on oral cardizem Left Pleural effusion Left lung Atelectasis Left lung mass Diabetes mellitus Hypertension Echo revealing LVEF 45-50% Recommendations: Continue rate control with AV travis blocking agents for his persistent afib/ flutter. Long-term oral anticoagulation has been deferred. Patient has a left lung mass and is considered high risk for bleeding. We will instead recommend oral antiplatelet therapy with a daily aspirin. Subjective Date of service: 09/22/16 Principal diagnosis: Atrial Fib with RVR; Acute Hypoxemic Resp Failure Interval history: Patient has no cardiac complaints. Objective Vital Signs Temp Pulse Pulse Pulse Pulse Pulse Pulse 09/22/16 10:54 80 09/22/16 10:53 80 09/22/16 07:55 104 H 09/22/16 07:45 106 H 09/22/16 07:18 97.7 F 105 H 09/22/16 04:35 98.5 F 111 H 09/22/16 00:34 98.2 F 109 H 09/21/16 22:03 09/21/16 21:00 90 87 09/21/16 20:00 98.3 F 103 H 09/21/16 16:00 98.1 F 102 H 09/21/16 14:33 96 H 09/21/16 14:18 94 H 09/21/16 12:07 100 H Resp Resp Resp BP BP Pulse Ox 09/22/16 10:54 09/22/16 10:53 09/22/16 07:55 18 100 09/22/16 07:45 18 09/22/16 07:18 18 135/87 100 09/22/16 04:35 18 134/90 97 09/22/16 00:34 18 139/83 97 09/21/16 22:03 98 09/21/16 21:00 18 20 09/21/16 20:00 18 138/81 97 09/21/16 16:00 18 144/88 100 09/21/16 14:33 16 09/21/16 14:18 16 09/21/16 12:07 20 149/104 - Physical Examination General: No Apparent Distress HEENT: Positive: PERRL Neck: Positive: trachea midline Cardiac: Positive: irregularly irregular Lungs: Positive: Decreased Breath Sounds Neuro: Positive: Grossly Intact Abdomen: Positive: Soft Skin: Positive: Clear Extremities: Absent: edema - Labs and Meds Coagulation 09/22/16 Range/Units 06:46 PT 14.8 (12.2-14.9) Sec. INR 1.17 H (0.87-1.13) - Imaging and Cardiology EKG: report reviewed (Afib with rvr)
[2016-09-22 15:27] VITALS: BP 132/72
== END 2016-09-22 18:27 | disposition home health service (06) | DRG 180 ==
LOC: ED 16:53 → CC1 20:46 → 4A 09-10 18:52
PROVIDERS: ADMIT Internal Medicine; ATTEND Internal Medicine
PROC: 4A033R1 Measurement of Arterial Saturation, Peripheral, Percutaneous Approach (ICD-10-PCS; 2016-09-07)
PROC: 0W9B3ZX Drainage of Left Pleural Cavity, Percutaneous Approach, Diagnostic (ICD-10-PCS; principal; 2016-09-12)
PROC: 0BBG3ZX Excision of Left Upper Lung Lobe, Percutaneous Approach, Diagnostic (ICD-10-PCS; 2016-09-13)
PROC: 0W9B3ZZ Drainage of Left Pleural Cavity, Percutaneous Approach (ICD-10-PCS; 2016-09-17)
PROC: 0BB78ZX Excision of Left Main Bronchus, Via Natural or Artificial Opening Endoscopic, Diagnostic (ICD-10-PCS; 2016-09-17)
PROC: 0BB68ZX Excision of Right Lower Lobe Bronchus, Via Natural or Artificial Opening Endoscopic, Diagnostic (ICD-10-PCS; 2016-09-17)
PROC: 3E0F8GC Introduction of Other Therapeutic Substance into Respiratory Tract, Via Natural or Artificial Opening Endoscopic (ICD-10-PCS; 2016-09-17)
DX: C34.90 Malignant neoplasm of unspecified part of unspecified bronchus or lung (principal); J96.01 Acute respiratory failure with hypoxia; I48.92 Unspecified atrial flutter; J98.11 Atelectasis; J91.0 Malignant pleural effusion; E11.9 Type 2 diabetes mellitus without complications; I10 Essential (primary) hypertension; N40.0 Benign prostatic hyperplasia without lower urinary tract symptoms; E11.649 Type 2 diabetes mellitus with hypoglycemia without coma; E78.5 Hyperlipidemia, unspecified; E66.9 Obesity, unspecified; J44.9 Chronic obstructive pulmonary disease, unspecified; Z71.3 Dietary counseling and surveillance; Z83.42 Family history of familial hypercholesterolemia; Z88.8 Allergy status to other drugs, medicaments and biological substances; Z68.33 Body mass index [BMI] 33.0-33.9, adult; Z82.49 Family history of ischemic heart disease and other diseases of the circulatory system
CPT/HCPCS: 32555; 36415; 36600; 70450; 71010; 71250; 74176; 77012; 78582; 80048; 80053; 82010; 82140; 82550; 82803; 82805; 82962; 83036; 83605; 83615; 83735; 83880; 84160; 84439; 84443; 84484; 85014; 85018; 85025; 85049; 85379; 85520; 85610; 85730; 86140; 87116; 88104; 88112; 88305; 88333; 88334; 93005; 93010; 93306; 94640; 94760; 96361; 96374; 96375; A9540; A9558; J0153; J0171; J1170; J1644; J1650; J1815; J1956; J2250; J2370; J2704; J3010; J7030